=== PATIENT | female | born 1975 | race Caucasian/White ===

== ENCOUNTER 2019-09-03 10:07 | Outpatient (CLI) | payer MEDICARE, MEDICAID, SELFPAY | END 2019-09-03 10:08 | disposition home or self-care (01) | LOC: RADSHAW 09-04 08:44 | PROVIDERS: PCP Family Medicine; Referring Provider Family Medicine; Visit Provider Specialist | DX: I99.8 Other disorder of circulatory system (principal); F17.210 Nicotine dependence, cigarettes, uncomplicated | CPT/HCPCS: 99214 ==

== ENCOUNTER → 2020-03-18 12:15 | Outpatient (BNVA) | payer MEDICARE, SELFPAY | PROVIDERS: PCP Family Medicine; Visit Provider Family Medicine | DX: N92.6 Irregular menstruation, unspecified (principal); Z13.1 Encounter for screening for diabetes mellitus; N94.6 Dysmenorrhea, unspecified; Z13.6 Encounter for screening for cardiovascular disorders | CPT/HCPCS: 80053; 80061; 83001; 83002; 84403; 84443; 85025 ==

== ENCOUNTER → 2020-04-06 14:51 | Outpatient (BNVA) | payer MEDICARE, SELFPAY | PROVIDERS: PCP Family Medicine; Visit Provider Family Medicine | DX: M17.12 Unilateral primary osteoarthritis, left knee (principal); M17.11 Unilateral primary osteoarthritis, right knee | CPT/HCPCS: 73562 ==

== ENCOUNTER → 2020-04-08 14:15 | Outpatient (BNVA) | payer MEDICARE, SELFPAY | PROVIDERS: PCP Family Medicine; Visit Provider Nurse Practitioner Women's Health | DX: Z12.4 Encounter for screening for malignant neoplasm of cervix (principal); N94.5 Secondary dysmenorrhea | CPT/HCPCS: 88175 ==

== ENCOUNTER → 2020-07-03 17:33 | Outpatient (BNVA) | payer MEDICARE, SELFPAY | PROVIDERS: PCP Family Medicine; Visit Provider Nurse Practitioner | DX: N39.0 Urinary tract infection, site not specified (principal) | CPT/HCPCS: 81000 ==

== ENCOUNTER → 2020-07-30 15:48 | Outpatient (BNVA) | payer MEDICARE, SELFPAY | PROVIDERS: PCP Family Medicine; Visit Provider Emergency Medicine | DX: N39.0 Urinary tract infection, site not specified (principal); K04.7 Periapical abscess without sinus; R31.9 Hematuria, unspecified | CPT/HCPCS: 81000 ==

== ENCOUNTER → 2021-03-02 08:45 | Outpatient (BNVA) | payer MEDICARE, SELFPAY | PROVIDERS: PCP Family Medicine; Visit Provider Family Medicine | DX: R39.9 Unspecified symptoms and signs involving the genitourinary system (principal); E78.1 Pure hyperglyceridemia; R23.8 Other skin changes; Z13.1 Encounter for screening for diabetes mellitus; L25.9 Unspecified contact dermatitis, unspecified cause; N30.01 Acute cystitis with hematuria; Z86.2 Personal history of diseases of the blood and blood-forming organs and certain disorders involving the immune mechanism | CPT/HCPCS: 80053; 80061; 81000; 85025; 87086 ==

== ENCOUNTER 2021-04-11 12:51 | Outpatient (CLI) | payer MEDICARE, SELFPAY ==
--- NOTE | 2021-04-11 13:00 | MR_ITS ---
WS: [id number] MRI HEAD WITHOUT CONTRAST TECHNIQUE: Sagittal T1, T2 axial, T2 axial FLAIR, axial and coronal T1 images, axial susceptibility w eighted imaging, axial diffusion weighted images, and coronal T2 images were obtained. CLINICAL INFORMATION: G45.9 - Transient cerebral ischemic attack, unspecified COMPARISON: None. FINDINGS: Some images degraded by motion. No evidence of restricted diffusion to suggest acute ischemia. Ventricular system and basal cisterns are patent. No suspicious intracranial signal abnormalities considering motion artifact. Normal poste rior fossa. Normal vascular flow voids at the skull base. No extra-axial fluid collections. No eviden ce of mass or mass effect. Retention cyst right maxillary sinus. Mild mucosal thickening in the ethmo id air cells. Mastoid air cells are well aerated. No hemosiderin on susceptibly weighted images. Normal optic chiasm and pituitary infundibulum. Temporal lobes and hippocampal formations are normal in appearance. Low-lying cerebellar tonsils approximately 4.3 mm below the foramen magnum. Normal fou rth ventricle. No hydrocephalus. MR/MR head wo con* [id number] IMPRESSION: Some images degraded by motion artifact. 1. No evidence of restricted diffusion to suggest acute ischemia. 2. No suspicious intracranial signal abnormalities considering motion artifact . 3. No extra-axial fluid collections. No evidence of mass or mass effect. 4. Temporal lobes and hippocampal formations are normal in appearance. 5. Cerebellar tonsillar ectopia. Normal fourth ventricle. No hydrocephalus. 6. Retention cyst right maxillary sinus measuring 1.6 cm.
== END 2021-04-11 12:52 | disposition home or self-care (01) ==
PROVIDERS: PCP Family Medicine; Visit Provider Family Medicine
DX: G45.9 Transient cerebral ischemic attack, unspecified (principal); R29.898 Other symptoms and signs involving the musculoskeletal system; R47.9 Unspecified speech disturbances; Q04.8 Other specified congenital malformations of brain; M27.40 Unspecified cyst of jaw
CPT/HCPCS: 70551

== ENCOUNTER → 2021-07-05 14:22 | Outpatient (BNVA) | payer MEDICARE, SELFPAY | PROVIDERS: PCP Family Medicine; Visit Provider Family Medicine | DX: M79.642 Pain in left hand (principal) | CPT/HCPCS: 73130 ==

== ENCOUNTER → 2021-11-16 09:07 | Outpatient (BNVA) | payer MEDICARE, SELFPAY | PROVIDERS: PCP Family Medicine; Visit Provider Family Medicine | DX: N23 Unspecified renal colic (principal); N39.0 Urinary tract infection, site not specified; J30.2 Other seasonal allergic rhinitis; N93.9 Abnormal uterine and vaginal bleeding, unspecified | CPT/HCPCS: 81000 ==

== ENCOUNTER → 2021-12-28 14:59 | Outpatient (BNVA) | payer MEDICARE, SELFPAY | PROVIDERS: PCP Family Medicine; Visit Provider Family Medicine | DX: N93.9 Abnormal uterine and vaginal bleeding, unspecified (principal) | CPT/HCPCS: 85018 ==

== ENCOUNTER → 2021-12-30 17:25 | Outpatient (BNVA) | payer MEDICARE, SELFPAY | PROVIDERS: PCP Family Medicine; Visit Provider Emergency Medicine | DX: D50.0 Iron deficiency anemia secondary to blood loss (chronic) (principal); N93.9 Abnormal uterine and vaginal bleeding, unspecified | CPT/HCPCS: 85018 ==

== ENCOUNTER → 2022-01-05 13:57 | Outpatient (BNVA) | payer MEDICARE, SELFPAY | PROVIDERS: PCP Family Medicine; Visit Provider Obstetrics & Gynecology | DX: N93.9 Abnormal uterine and vaginal bleeding, unspecified (principal); D50.0 Iron deficiency anemia secondary to blood loss (chronic); E78.5 Hyperlipidemia, unspecified | CPT/HCPCS: 83036; 84443; 88305 ==

== ENCOUNTER 2022-01-23 10:01 | Outpatient (CLI) | payer MEDICARE, MEDICAID, SELFPAY ==
--- NOTE | 2022-01-23 10:00 | US_ITS ---
WS: [id number] TRANSABDOMINAL PELVIC AND TRANSVAGINAL PELVIC ULTRASOUND HISTORY: N93.9 - Abnormal uterine and vaginal bleeding, unspecified COMPARISON: None available. Uterus: 10.6 cm x 9.2 cm x 6.3 cm. Moderately enlarged anteverted uterus. A slightly bulbous appearan ce to the uterus. There are multiple areas of shadowing and variable echogenicity consistent with fib roids. The largest fibroid is towards the RIGHT lateral uterus measuring 3.8 x 2.8 x 3.6 cm. There ar e additional scattered more anterior and posterior fibroids. There are 2 well circumscribed fibroids. Additional heterogeneity in the posterior myometrium and to the LEFT suggest other fibroids. Endometrium: 0.5 cm. The endometrium remains midline despite the fibroids. Right ovary: 4.4 cm x 4.1 cm x 2.3 cm. RIGHT ovary contains several small complex cysts. Complex cyst ic or measures 2.8 x 2.4 x 1.7 cm. No increased vascularity. No solid mass. Left ovary: Not visualized. No LEFT adnexal mass. No free fluid. US/US pelvic with transvaginal IMPRESSION: 1. Moderate uterine enlargement with fibroids. Largest fibroid RIGHT lateral m yometrium measures 3.8 x 2.8 x 3.6 cm. 2. Normal endometrium. 3. Complex cyst in the RIGHT adnexa associated with the ovary. This is a small cyst and probably represents hemorrhagic follicles or corpus luteal cyst.
== END 2022-01-23 10:02 | disposition home or self-care (01) ==
PROVIDERS: PCP Family Medicine; Visit Provider Obstetrics & Gynecology
DX: N93.9 Abnormal uterine and vaginal bleeding, unspecified (principal); D25.9 Leiomyoma of uterus, unspecified
CPT/HCPCS: 76830; 76856

== ENCOUNTER → 2022-01-31 11:39 | Outpatient (BNVA) | payer OTHER, MEDICARE, SELFPAY | PROVIDERS: PCP Family Medicine; Visit Provider Family Medicine | DX: N93.9 Abnormal uterine and vaginal bleeding, unspecified (principal); D50.0 Iron deficiency anemia secondary to blood loss (chronic); N85.2 Hypertrophy of uterus; I10 Essential (primary) hypertension; Z01.818 Encounter for other preprocedural examination | CPT/HCPCS: 85018 ==

== ENCOUNTER 2022-02-28 12:40 | Observation (INO) | payer MEDICARE, SELFPAY ==
[2022-02-27 13:52] VITALS: BMI 36.8
[2022-02-28] VITALS (19 sets, daily range): BP systolic 108–166; BP diastolic 70–119; PULSE 68–99; RESP 8–20; TEMP 36.6–37; O2SAT 89–100
--- NOTE | 2022-02-28 07:43 | ANES.PREANE2 ---
Pre-Anesthetic Assessment Height/Weight: Height 1.63 m Weight 97.522 kg Preop Diagnosis: AUB Operation Date: 02/28/22 09:25 Proposed Procedures p Laparoscopic assisted vaginal hysterectomy 59156,N85.2,N81.4(Not Applicable) - Idalmis Murillo MD Familial anesthetic complications: None Was Beta Ave taken within 24 hours: N/A Was Clonidine taken within 24 hours: N/A Last intake: 02/27/22 Social Tobacco and No alcohol Exam alert, oriented x 3, clear to auscultation bilaterally and regular rate & rhythm Airway Submandibular: within normal limits Cervical ROM: within normal limits Mallampati: Class II Dentition: chipped Pulmonary None reported CV/HEM Anemia and Hypertension AUB Hepatic None reported GI None reported Metabolic Hyperlipidemia Musc/skel Lower Back Pain and Osteoarthritis/DJD Cervical radiculopathy Lumbar radiculopathy Insomnia Neuropsych Cerebrovascular Accident, Depression, Headache and Transient Ischemic Attack We discussed risk and benefits of general anesthesia including PONV, sore throat (sometimes severe), corneal abrasion, positioning and peripheral nerve injuries, life threatening allergic reaction, post operative ICU admission requiring prolonged intubation, aspiration, stroke, heart attack, , and rare incidences of recall. Patient consents to proceed with general anesthesia. Anesthetic Plan ASA status: 3 Anesthesia: Anesthesia Evaluation and General Other: We discussed risk and benefits of general anesthesia including PONV, sore throat (sometimes severe), corneal abrasion, positioning and peripheral nerve injuries, life threatening allergic reaction, post operative ICU admission requiring prolonged intubation, aspiration, stroke, heart attack, , and rare incidences of recall. Patient consents to proceed with general anesthesia. Risk of > 500 ml blood loss (7ml/kg in children): No Medications/Allergies Home Medications Medication Instructions Recorded Confirmed Last Taken Type ibuprofen 800 mg tablet (IBU) 800 mg PO Q8H PRN pain 30 days #90 09/29/21 02/28/22 02/27/22 Rx tabs verapamil 120 mg tablet,extended 120 mg PO BID 30 days #60 tabs 09/29/21 02/28/22 02/27/22 Rx release ketorolac 10 mg tablet 10 mg PO Q6H PRN Headache 01/05/22 02/28/22 Unknown History promethazine 25 mg tablet 25 mg PO Q6H PRN Pain 01/05/22 02/28/22 Unknown History cyclobenzaprine 5 mg tablet 5 mg PO BEDTIME 02/27/22 02/28/22 02/28/22 History Allergies Allergy/AdvReac Type Severity Reaction Status Date / Time amoxicillin Allergy Unknown UNKNOWN Verified 02/28/22 08:07 ceftriaxone [From Rocephin] Allergy Unknown UNKNOWN Verified 02/28/22 08:07 cephalexin Allergy Unknown UNKNOWN Verified 02/28/22 08:07 ciprofloxacin Allergy Unknown UNKNOWN Verified 02/28/22 08:07 dexamethasone [From Decadron] Allergy Unknown UNKNOWN Verified 02/28/22 08:07 methylprednisolone Allergy Unknown UNKNOWN Verified 02/28/22 08:07 [From Depo-Medrol] terfenadine [From Seldane] Allergy Unknown UNKNOWN Verified 02/28/22 08:07 [facility] Anesthesia Medical History Arthritis of right knee Cervical radiculopathy Chronic back pain Chronic migraine Depression Expressive aphasia Hyperlipemia Does not tolerate fish oils Insomnia Lumbar radiculopathy Palpitation Stroke TIA (transient ischemic attack) (~2011) Tobacco abuse Surgical History H/O arthroscopic knee surgery LEFT KNEE H/O sinus surgery H/O tubal ligation Family History Family/Other Uterine cancer, Onset Age: 25 Maternal Aunt Father Stroke Grandmother Heart disease Maternal and paternal Grandfather Heart disease Maternal and paternal Denies family history of Colon cancer Ovarian cancer Diabetes Clotting disorder Hypercholesteremia Breast cancer Bleeding disorder Hypertension Thyroid disease Social History Smoking and tobacco status: current every day smoker Female Reproductive History Spontaneous abortions: No Data Anesthesia : 02/28/22 08:25 02/28/22 08:53 Cardiac Studies: No Data to Display
[2022-02-28] MEDS: scopolamine 1.5 Patch 1 PATCH TRANSDERMA (08:30)
[2022-02-28] MEDS: sodium chloride 0.9% 1,000 ML 30 ML IV (08:30)
[2022-02-28] MEDS: phenazopyridine 100 mg Tablet 200 MG PO (08:31)
[2022-02-28] MEDS: CELEcoxib 200 mg Capsule 400 MG PO (08:31)
[2022-02-28] MEDS: acetaminophen 1,000 MG/100 ML PIGGYBACK 400 MG IV (08:31)
[2022-02-28] MEDS: gabapentin 300 mg Capsule PO (08:31)
[2022-02-28 08:33] LABS: Basophils # 0.1 10^3/uL (0.0-0.1); Basophils % 1.5 %; Eosinophils # 0.2 10^3/uL (0.0-0.8); Hematocrit 36.2 % (37.0-47.0); Hemoglobin 10.5 g/dL (11.5-15.3); Lymphocytes # 2.6 10^3/uL (0.8-4.8); Lymphocytes % 27.4 %; Mean Corpuscular Hemoglobin 21.1 pg (28.0-34.0); Mean Corpuscular Volume 72.8 fl (81-99); Mean Platelet Volume 10.5 fL (7.4-10.4); Monocytes # 0.9 10^3/uL (0.2-0.9); Monocytes % 9.5 %; Neutrophils # 5.65 10^3/uL (1.8-7.7); Neutrophils % 59.4 %; Nucleated Red Blood Cells % 0 %; Platelet Count 318 10^3/cmm (130-400); Red Blood Count 4.97 10^6/uL (4.1-5.3); Red Cell Distribution Width 20.1 % (12.1-15.1); White Blood Count 9.5 10^3/uL (4.0-10.0)
[2022-02-28 08:37] LABS: OR HCG Qualitative Urine Negative (Negative)
[2022-02-28] MEDS: diphenhydrAMINE 50 mg/mL SDV 1mL IVP (09:11)
[2022-02-28] MEDS: vancomycin 1,500 MG/300 ML PIGGYBACK 200 MG IV (09:15)
[2022-02-28 09:25] LABS: Anion Gap 11.7 (5-19); Blood Urea Nitrogen 11 mg/dL (6-20); Calcium 8.9 mg/dL (8.5-10.5); Carbon Dioxide 23 mmol/L (22-29); Chloride 101 mmol/L (98-107); Glomerular Filtration Rate 106.7 mL/min (90-130); Glucose 87 mg/dL (65-115); Osmolality Calculated 273 mOsm/kg (285-295); Potassium 3.7 mmol/L (3.5-5.1); Sodium 132 mmol/L (136-145)
--- NOTE | 2022-02-28 09:28 | W.PM.OPSUD ---
Surgery/Procedure H&P Update DATE OF PROCEDURE: February 28, 2022 DATE H&P PERFORMED: 02/23/22 H&P UPDATE INFORMATION: I have reviewed H&P completed within last 30 days, I have examined patient prior to procedure and No changes to prior documentation PREOP DIAGNOSIS: enlarged uterus, anemia, AUB PLANNED PROCEDURE: Operation Date: 02/28/22 09:25 Proposed Procedures p Laparoscopic assisted vaginal hysterectomy 69974,N85.2,N81.4(Not Applicable) - Idalmis Murillo MD Related Problem List Diagnoses (1) Enlarged uterus: (2) Anemia due to blood loss: (3) Abnormal uterine bleeding (AUB):
[2022-02-28] MEDS: vasopressin 20 unit/mL INJ INJECTION (10:21)
--- NOTE | 2022-02-28 11:06 | SUR.OPER ---
Called and notified of surgical progress.
--- NOTE | 2022-02-28 12:35 | P.OP_ITS ---
Operative Report Date of procedure: February 28, 2022 Pre-op diagnosis: Preop Diagnosis enlarged uterus, anemia, AUB Post-op diagnosis: same Post-op findings: 12 week sized uterus, previous tubal ligation, normal appearing ovaries. Bowel adhesion on left pelvic sidewall. Procedure done: LAVH with bilateral salpingectomy Specimens removed/disposition: uterus, bilateral fallopian tubes to pathology Surgeon: Idalmis Murillo Anesthesia: General Estimated blood loss (mL): 250 IV fluids (mL): 1,000 Urine output (mL): 400 Complications: none Findings: 12 week sized fibroid uterus, normal appearing tubes and ovaries. left bowel adhesion to pelvic sidewall Condition: stable Disposition: PACU Procedure: The patient was taken to the operating room where general anesthesia was administered and found to be adequate. She was prepped and draped in the normal sterile fashion in the dorsal lithotomy position in [facility]. A Moran catheter was placed. A weighted speculum was placed into the vagina and the anterior lip of the cervix was grasped with a single tooth tenaculum. The Zumi uterine manipulator was placed. The weighted speculum was removed. The gloves were changed and attention was turned to the abdomen. A 5 mm Supraumbilical incision was made. Using a 5 mm port with the camera, the port was placed into the abdomen. The abdomen was insufflated. Two low, lateral 5 mm ports were placed on the left and right under direct visualization from the camera. The right tube was grasped and elevated. Using the laparoscopic cautery, the mesosalpinx was divided between the ovary and tube. The tube was removed. This was performed the same way on the left. The uteroovarian ligaments as well as the round ligaments were ligated. Attention was then turned to the vaginal portion of the procedure. The weighted speculum was placed into the vagina. The zumi manipulator was removed. The single tooth tenaculum was removed and replaced with the patricia's tenaculum. 10 mL of dilute Pitressin was injected at the vesicovaginal junction. A circumferential incision was made at the vesicovaginal junction and the vaginal mucosa reflected cephalad. The posterior peritoneum was entered sharply with the Metzenbaum scissors and the long weighted speculum replaced. Using the Caro clamps the uterosacral ligaments were clamped cut and suture- ligated. The anterior peritoneum was entered sharply with the metzenbaum scissors. Then sequentially the uterine arteries and cardinal ligaments were clamped cut and suture-ligated. The uterus was so large that the cervix was bivalved and the uterus removed completely. There was good hemostasis with only mild bleeding from the cuff. The peritoneum was closed with a pursestring using 2-0 Vicryl. The vaginal cuff was closed with 0 Vicryl in a running locked pattern incorporating the uterosacral ligaments into the lateral aspects of the vaginal cuff. The Moran catheter was removed and the cystoscope advanced into the bladder. The patient was given pyridium and bilateral spill was noted. There were no injuries or deficits noted in the bladder. The cystoscope was removed and the Moran was replaced. Vaginal packing was placed for good hemostasis. The gloves and gowns were changed and attention was turned to the abdomen. The ports were closed with 4-0 Vicryl with skin glue. The patient tolerated the procedure well. Sponge lap and needle counts were correct x3. She was taken to the recovery room in stable condition.
--- NOTE | 2022-02-28 12:59 | SUR.PHASEI ---
1244 PT TO PACU 5 PT SLEEPING WITH ORAL AIRWAY IN PLACE, DOES NOT AWAKE TO VOICE, GOOD RESP EFFORT NOTED MONITOR SR WITH NO ECTOPY, ABDOMEN SOFT WITH 3 SITES WITH SKIN GLUE, GIORGI PAD AND VAGINAL PACKING , MYERS TO DD WITH ORANGE URINE NOTED IN TUBING AND BAG, STATLOCK TO RT INNER THIGH, BILAT SCDS ON PT IV TO LT FOREARM #20 WITH NS 800ML UP AT KVO RATE PER GRAVITY, PATENT, ID BANDS TO RT WRIST , PT ID'D WITH 2 IDENTIFIERS [id number] PT ORAL AIRWAY OUT PT AWAKES TO VOICE, SHAKES HEAD NO TO PAIN AND NAUSEA QUESTIONS, PT UP IN BED WITH HOB AT 40 DEGREES. BP REMAINS ELEVATED.
[2022-02-28] MEDS: labetalol 5 mg/mL SDV 20mL IVP (13:13)
--- NOTE | 2022-02-28 13:22 | SUR.PHASEI ---
1310 PT BP REMAINS ELEVATED, DR GIBSON NOTIFIED ORDERS RECIEVEDA ND LABETOLOL 5 MG TO BE GIVEN IVP 1320 BP MUCH BETTER, PT AWAKES TO VOICE , BUT QUICKLY BACK TO SNORING RESPIRATIONS, PT ON RA SATS DOWN TO 90% PLACED ON 3LNC SAT 95-97$ WITH NO DISTRESS NOTED. ABDOMEN REMAINS SOFT. GIORGI PAD DRY.
--- NOTE | 2022-02-28 14:10 | SUR.PHASEI ---
PT UP DATED AND HE WENT TO OB TO WAIT FOR PT, PT TO OB PER CART, PT TO OB 12 PER CART, PT MOVED SELF TO BED , HANDOFF TO PIOTR RN AT BEDSIDE, ABDOMEN AND GIORGI PAD UNCHANGED, VSS.
--- NOTE | 2022-02-28 15:26 | W.PM.OPSUD ---
Surgery/Procedure H&P Update DATE OF PROCEDURE: February 28, 2022 DATE H&P PERFORMED: 02/23/22 H&P UPDATE INFORMATION: I have reviewed H&P completed within last 30 days, I have examined patient prior to procedure and No changes to prior documentation PREOP DIAGNOSIS: enlarged uterus, anemia, AUB PLANNED PROCEDURE: Operation Date: 02/28/22 09:25 Proposed Procedures p Laparoscopic assisted vaginal hysterectomy 13880,N85.2,N81.4(Not Applicable) - Idalmis Murillo MD
--- NOTE | 2022-02-28 15:39 | ANE.PACU2 ---
Inpatient post-anesthesia follow up: Airway intact: Yes Vital signs: Temperature 98.6 F Pulse Rate 76 Respiratory Rate 18 Blood Pressure 121/81 Pulse Oximetry 95 Oxygen Delivery Me thod Room Air Oxygen Flow Rate 2 Fraction of Inspir ed Oxygen Hydration adequate: Yes Nausea and vomiting: No Pain level: 5 Mental status: Baseline
--- NOTE | 2022-02-28 16:15 | PC.NURSE ---
Pt SpO2 drops to 88-90% while sleeping. Pt snores loudly and mouth breathes when sleeping. Pt repeatedly removes nasal cannula and will not leave it on. Education provided, pt refuses to wear it.
[2022-02-28] MEDS: docusate sodium 100 mg Capsule PO (19:53)
[2022-02-28] MEDS: ketorolac 30 mg/mL INJ IVP (19:53)
--- NOTE | 2022-03-01 00:59 | PC.NURSE ---
pt refused another IV and toradol.
[2022-03-01 01:00] VITALS: BP 107/71; PULSE 108; RESP 18
[2022-03-01 01:32] VITALS: BP 126/73; PULSE 120; RESP 19; TEMP 36.8; O2SAT 95
[2022-03-01 05:30] LABS: Hematocrit 28.6 % (37.0-47.0); Hemoglobin 8.2 g/dL (11.5-15.3); Mean Corpuscular HGB Conc 28.7 g/dL (30.0-36.0); Mean Corpuscular Hemoglobin 21.2 pg (28.0-34.0); Mean Corpuscular Volume 74.1 fl (81-99); Mean Platelet Volume 10.1 fL (7.4-10.4); Platelet Count 211 10^3/cmm (130-400); Red Blood Count 3.86 10^6/uL (4.1-5.3); Red Cell Distribution Width 19.6 % (12.1-15.1); White Blood Count 10.5 10^3/uL (4.0-10.0)
[2022-03-01 05:48] VITALS: BP 137/74; PULSE 102; RESP 16; TEMP 36.8; O2SAT 95
--- NOTE | 2022-03-01 08:57 | P.DS_ITS ---
Discharge Providers Date of Admission: 02/28/22 12:40 Date of Discharge: March 01, 2022 Attending Provider at Admission: Idalmis Murillo MD Attending Provider at Discharge: Idalmis Murillo MD Primary Care Provider: Jillian Taylor MD Diagnoses at Discharge Discharge Diagnosis (1) Enlarged uterus: Status: Acute (2) Anemia due to blood loss: Status: Acute (3) Abnormal uterine bleeding (AUB): Status: Acute Hospital Course Hospital Course The patient was admitted for surgery. She did well postoperatively. She was ready for discharge on day #1 Physical Exam Narrative: no concerns this morning. Const: COMMON NORMALS: no acute distress, patient oriented x3, no limitations, healthy appearing, alert and well nourished GENERAL APPEARANCE: cooperative, comfortable, well kempt and well developed ORIENTATION/CONSCIOUSNESS: Yes dominguez ke, Yes oriented to person, Yes oriented to place and Yes oriented to time Resp: COMMON NORMALS: normal respiratory effort EFFORT & INSPECTION: Yes able to speak in complete sentences GI: COMMON NORMALS: Soft to palpation and non-tender PALPATION: Yes Soft to palpation Extremity: COMMON NORMALS: normal to inspection Neuro: COMMON NORMALS: patient oriented x3 SENSORIUM/ORIENTATION: Yes alert, Yes oriented to person, Yes oriented to place and Yes oriented to time Psych: COMMON NORMALS: mental status grossly normal, Normal thought process present, cooperative, normal affect and speech normal APPEARANCE: Yes well kempt SPEECH: Yes normal speech THOUGHT PROCESS: Normal thought process present Urinary Catheter Management: Moran: Cath Placed During This Visit: yes, but has since been removed by the nurse Reason for Continuing Indwelling Catheter: Decision to DC Catheter Urinary Catheter Date of Insertion: 02/28/22 Urinary Catheter Time of Insertion: 10:16 Date Urinary Catheter Removed: 03/01/22 Time Urinary Catheter Discontinued: 05:20 Discharge Data Studies Completed and Pending Pending at discharge Category Date Time Status ES surgery / GI images Routine Exams 02/28/22 08:41 Ordered Urine Culture Routine Lab 02/28/22 10:16 Received Pathology: Surgical [PTH] Routine Pth 02/28/22 12:15 Received Laboratory Results WBC 10.5 10^3/uL (4.0-10.0) H 03/01/22 05:15 RBC 3.86 10^6/uL (4.1-5.3) L 03/01/22 05:15 Hgb 8.2 g/dL (11.5-15.3) L 03/01/22 05:15 Hct 28.6 % (37.0-47.0) L 03/01/22 05:15 MCV 74.1 fl (81-99) L 03/01/22 05:15 MCH 21.2 pg (28.0-34.0) L 03/01/22 05:15 MCHC 28.7 g/dL (30.0-36.0) L 03/01/22 05:15 RDW 19.6 % (12.1-15.1) H 03/01/22 05:15 Plt Count 211 10^3/cmm (130-400) D 03/01/22 05:15 MPV 10.1 fL (7.4-10.4) 03/01/22 05:15 Neut % (Auto) 59.4 % 02/28/22 08:25 Lymph % (Auto) 27.4 % 02/28/22 08:25 [place] % (Auto) 9.5 % 02/28/22 08:25 Eos % (Auto) 2.0 % 02/28/22 08:25 Baso % (Auto) 1.5 % 02/28/22 08:25 Neut # (Auto) 5.65 10^3/uL (1.8-7.7) 02/28/22 08:25 Lymph # (Auto) 2.6 10^3/uL (0.8-4.8) 02/28/22 08:25 [place] # (Auto) 0.9 10^3/uL (0.2-0.9) 02/28/22 08:25 Eos # (Auto) 0.2 10^3/uL (0.0-0.8) 02/28/22 08:25 Baso # (Auto) 0.1 10^3/uL (0.0-0.1) 02/28/22 08:25 Nucleated RBC % (auto) 0 % 02/28/22 08:25 Nucleated RBCs # 0.0 /100WBC 02/28/22 08:25 Sodium 132 mmol/L (136-145) L 02/28/22 08:53 Potassium 3.7 mmol/L (3.5-5.1) 02/28/22 08:53 Chloride 101 mmol/L (98-107) 02/28/22 08:53 Carbon Dioxide 23 mmol/L (22-29) 02/28/22 08:53 Anion Gap 11.7 (5-19) 02/28/22 08:53 BUN 11 mg/dL (6-20) 02/28/22 08:53 Creatinine 0.6 mg/dL (0.5-0.9) 02/28/22 08:53 GFR Calculation 106.7 mL/min (90-130) 02/28/22 08:53 Glucose 87 mg/dL (65-115) 02/28/22 08:53 Calculated Osmolality 273 mOsm/kg (285-295) L 02/28/22 08:53 Calcium 8.9 mg/dL (8.5-10.5) 02/28/22 08:53 Urine HCG, Qual Negative (Negative) 02/28/22 08:36 Blood Type O Positive 02/28/22 08:25 Rho(D) Type Positive 02/28/22 08:25 Antibody Screen Negative 02/28/22 08:25 Vitals Last Vital Signs Temp 98.2 F 03/01/22 05:48 Pulse 102 H 03/01/22 05:48 Resp 16 03/01/22 05:48 BP 137/74 03/01/22 05:48 Pulse Ox 95 03/01/22 05:48 O2 Del Method 03/01/22 01:32 O2 Flow Rate 2 02/28/22 13:35 Discharge Plan Discharge Patient Disposition: Home Condition: Stable Prescriptions: New ibuprofen 800 mg Tablet 800 mg PO Q8H Qty: 30 0RF hydrocodone-acetaminophen 5-325 mg Tablet 1 tab PO Q4H PRN (Reason: Moderate To Severe Pain) Qty: 30 0RF docusate sodium 100 mg Capsule 100 mg PO BID Qty: 60 0RF Continued verapamil 120 mg tablet extended release 120 mg PO BID 30 Days Qty: 60 0RF ibuprofen [IBU] 800 mg tablet 800 mg PO Q8H MDD 3 tabs PRN (Reason: pain) 30 Days Qty: 90 5RF Rx Instructions: WITH FOOD promethazine 25 mg tablet 25 mg PO Q6H PRN (Reason: Pain) ketorolac 10 mg tablet 10 mg PO Q6H PRN (Reason: Headache) cyclobenzaprine 5 mg tablet 5 mg PO BEDTIME Discharge Orders: Discharge Order (Routine); Ordered 03/01/22 Ordered By: Idalmis Murillo Referrals: Idalmis Murillo MD [Physician] - 03/08/22 9:30 am (Your 6 week post operative follow up is April 14, 2022 at 3:15 p.m.) Patient Instructions: Hydrocodone/Acetaminophen (By mouth) (Vicodin, [place], Lortab), Ibuprofen (By mouth), Laxative, Stool Softeners (By mouth) (Doculax, Colace, Colace Clear, DSS), Laparoscopic Hysterectomy (DC), OB Abdominal Surgery - [facility], OB Anesthesia Instructions, Opioid Safety, Post Operative Pain Discharge Attestations Time Spent in Discharge Care*: less than 30 min Quality Metrics Clinical Quality Measures [ No reported AMI, CVA or VTE this stay] Coding Level of Care Code Acute Chg FW DC note Diagnoses Enlarged uterus N85.2 Anemia due to blood loss D50.0 Abnormal uterine bleeding (AUB) N93.9
[2022-03-01 09:30] VITALS: BP 122/76; PULSE 94; RESP 18; TEMP 36.8; O2SAT 98
== END 2022-03-01 10:00 | disposition home or self-care (01) ==
LOC: OBGYN 12:40
PROVIDERS: Anesthesiology; Admitting Provider Obstetrics & Gynecology; PCP Family Medicine; Visit Provider Obstetrics & Gynecology
PROC: 0UT9FZZ Resection of Uterus, Via Natural or Artificial Opening With Percutaneous Endoscopic Assistance (ICD-10-PCS; CPT 58554; principal; 2022-02-28 09:25)
PROC: 0TJB8ZZ Inspection of Bladder, Via Natural or Artificial Opening Endoscopic (ICD-10-PCS; CPT 52000; 2022-02-28 09:25)
DX: D25.2 Subserosal leiomyoma of uterus (principal); D50.0 Iron deficiency anemia secondary to blood loss (chronic)
CPT/HCPCS: 58554; 36415; 80048; 81025; 84703; 85025; 85027; 86850; 86900; 87086; 88307; G0378; J1170; J1200; J1885; J2250; J2405; J2704; J3010; J3370; J3490; J7030

== ENCOUNTER → 2022-09-28 11:37 | Outpatient (BNVA) | payer MEDICARE, MEDICAID, SELFPAY | PROVIDERS: PCP Family Medicine; Visit Provider Family Medicine | DX: R30.0 Dysuria (principal) | CPT/HCPCS: 81000; 87077; 87086; 87184 ==

== ENCOUNTER 2023-03-06 12:53 | Outpatient (CLI) | payer MEDICARE, MEDICAID, SELFPAY ==
--- NOTE | 2023-03-06 13:17 | MM_ITS ---
WS: [id number] DIAGNOSTIC BILATERAL DIGITAL BREAST TOMOSYNTHESIS MAMMOGRAPHY WITH CAD RIGHT breast ultrasound, limited. HISTORY: RT BR LUMP COMPARISON: None available. TECHNIQUE: Bilateral craniocaudad, mediolateral oblique, and mediolateral views are submitted with to mosynthesis and SM. Spot compression views RIGHT CC and MLO. Computer aided detection utilized. Breast composition: There are scattered areas of fibroglandular density. Palpable marker corresponds to a high density mass measuring 2.3 x 1.9 cm in the posterior RIGHT breast against the chest wall, n ear 12:00. There are additional mildly prominent lymph nodes in the RIGHT axilla. Fatty vik are stil l present but the cortex appears prominent. LEFT breast is negative. RIGHT breast ultrasound, limited. Hypoechoic lobulated mass with minimal peripheral vascularity at 12:00, 9 cm from the nipple. This ma ss corresponds to the palpable mass as indicated by the patient and also seen on the recent mammogram . Mass measures 2.0 x 1.7 x 1.6 cm. Ultrasound is also obtained of the RIGHT axilla. The prominent lymph nodes identified on mammography are not visualized by ultrasound. No adenopathy is identified. IMPRESSION: MM/[place] [id number] BI-RADS: 5-Highly Suggestive of Malignancy FOLLOW UP: Biopsy Recommended Ultrasound-guided biopsy recommended RIGHT breast mass 12:00. Notified Michelle Bowen NP at 03/06/2023 3:14 PM.
== END 2023-03-06 12:54 | disposition home or self-care (01) ==
PROVIDERS: PCP Family Medicine; Visit Provider Nurse Practitioner Family
DX: N63.15 Unspecified lump in the right breast, overlapping quadrants (principal)
CPT/HCPCS: 76642; 77062; G0279

== ENCOUNTER 2023-03-14 13:32 | Outpatient (CLI) | payer MEDICARE, MEDICAID, SELFPAY ==
--- NOTE | 2023-03-14 13:41 | US_ITS ---
WS: [id number] ULTRASOUND-GUIDED RIGHT BREAST BIOPSY CLINICAL INFORMATION: ABNORMAL MAMMO COMPARISON: 03/06/2023 FINDINGS: The procedure including risks, benefits, and complications were discussed with the patient who agreed to proceed. Using sterile technique patient was prepped and draped in the usual sterile fashion. Aft er 1% lidocaine utilizing real-time ultrasound guidance 5 14-gauge cores were obtained of the RIGHT b reast lesion at the 12 o'clock position 9 cm from the nipple. No immediate complications. Biopsy clip was not placed per patient's request. PATHOLOGY DEMONSTRATES Right breast, 12:00 position, 9 cm from nipple, needle core biopsy: 1. Infiltrating ductal adenocarcinoma, moderately differentiated (Grade 2 out of 3). 2. Nuclear Grade 2 out of 3. 3. Approximately 70% of tissue volume submitted is involved by infiltrating neoplasm. 4. There are foci suspicious for lymphovascular invasion. IMPRESSION: 1. Uncomplicated ultrasound-guided RIGHT breast biopsy. 2. The pathology demonstrates infiltrating ductal adenocarcinoma grade 2 of 3 3. Breast prognostic profile is pending. 4. Recommend breast surgery consultation. US/[place] [id number] BI-RADS: 6-Known Biopsy-Proven Malignancy FOLLOW UP: Surgical Biopsy Recommended
[2023-04-03 09:14] LABS: Breast Profile ER,PR,HER2,Ki-6 See Report
== END 2023-03-14 13:33 | disposition home or self-care (01) ==
PROVIDERS: PCP Family Medicine; Visit Provider Nurse Practitioner Family
DX: C50.811 Malignant neoplasm of overlapping sites of right female breast (principal); R92.8 Other abnormal and inconclusive findings on diagnostic imaging of breast
CPT/HCPCS: 19083; 88305; 88361; 88374

== ENCOUNTER → 2023-03-28 10:40 | Outpatient (BNVA) | payer MEDICARE, MEDICAID, SELFPAY | PROVIDERS: PCP Family Medicine; Visit Provider Family Medicine | DX: I10 Essential (primary) hypertension (principal); E78.5 Hyperlipidemia, unspecified; M54.9 Dorsalgia, unspecified; G89.29 Other chronic pain; M54.42 Lumbago with sciatica, left side; M54.41 Lumbago with sciatica, right side; M17.11 Unilateral primary osteoarthritis, right knee; R30.0 Dysuria | CPT/HCPCS: 73562; 80053; 80061; 81000; 85025; 87086 ==

== ENCOUNTER 2023-03-29 08:25 | Oncology outpatient (recurring) (ONCR) | payer MEDICARE, MEDICAID, SELFPAY | END 2023-03-31 23:59 | disposition home or self-care (01) | LOC: ONCMED 08:26 | PROVIDERS: PCP Family Medicine; Visit Provider Internal Medicine Medical Oncology | DX: C50.911 Malignant neoplasm of unspecified site of right female breast (principal); Z17.0 Estrogen receptor positive status [ER+]; Z79.899 Other long term (current) drug therapy; F17.210 Nicotine dependence, cigarettes, uncomplicated | CPT/HCPCS: 99205 ==

== ENCOUNTER 2023-04-17 16:15 | Outpatient (CLI) | payer MEDICARE, MEDICAID, SELFPAY ==
--- NOTE | 2023-04-17 | PETR_ITS ---
PROCEDURE INFORMATION: Exam: PET/CT Whole Body Exam date and time: 04/17/2023 12:59 PM Age: 47 years old Clinical indication: Condition or disease; Primary cancer: Breast cancer; Initial oncological staging assessment LABS AND CLINICAL REPORTS: Glucose: 113 mg/dl Treatment strategy for malignancy (PET staging): Initial Staging (PI) TECHNIQUE: Imaging protocol: Following at least four-hour fasting and following the injection of radiopharmaceutical, low dose CT images were obtained. Then, PET images were obtained. Attenuation corrected images were constructed using the CT scan. Fused images of PET and CT were reviewed. The standardized uptake values (SUV) reported below are maximum values within a region of interest, expressed in gm/ml. Exam includes the whole body. Radiopharmaceutical: 11.13 mCi F-18 FDG (Fluorodeoxyglucose), IV. Time of imaging post radiopharmaceutical administration: 1 hour Injection site: site COMPARISON: [place] [id number] 03/14/2023 2:32 PM FINDINGS: Brain: Visualized brain has normal physiologic uptake. Paranasal sinuses: The right maxillary sinus has a mucous retention cyst or polyp. Dental: There is uptake in the left mandible with adjacent periodontal disease SUV maximum of 4.2, likely dental in origin. Pharynx: No abnormal uptake. Larynx: No abnormal uptake. Lungs, pleura and trachea: Calcified granuloma in the lungs. No suspicious mass. Heart: Normal physiologic uptake. Mediastinal space: No abnormal uptake. Liver: No abnormal uptake. Gallbladder and bile ducts: No abnormal uptake. Pancreas: No abnormal uptake. Spleen: No abnormal uptake. Adrenal glands: No abnormal uptake. Kidneys and ureters: Normal physiologic uptake. Stomach and bowel: No abnormal uptake. Urinary bladder: Incompletely distended bladder with mild apparent wall thickening. Reproductive: Left adnexal cyst measures 3.8 cm without uptake most likely physiologic. Hysterectomy. Vasculature: No abnormal uptake. Lymph nodes: Calcified mediastinal and hilar nodes are present consistent with old granulomatous disease. Bones/joints: No abnormal uptake in the visualized axial and appendicular skeleton. Soft tissues: There is a mass in the medial right breast present measuring 1.8 x 1.6 cm similar to the comparison ultrasound. On PET there is uptake present within the mass with SUV maximum of 10.0. PET/PET WB melanoma SUBSEQ [id number] IMPRESSION: 1. Medial right breast mass measuring 1.8 cm with uptake consistent with patient's known carcinoma. No distant metastatic disease is identified. 2. Uptake in the left mandible with adjacent dental disease is likely reactive.
== END 2023-04-17 16:16 | disposition home or self-care (01) ==
LOC: RAD 16:16
PROVIDERS: PCP Family Medicine; Visit Provider Family Medicine
DX: C50.811 Malignant neoplasm of overlapping sites of right female breast (principal)
CPT/HCPCS: 78816; A9552

== ENCOUNTER 2023-05-21 13:53 | Outpatient (CLI) | payer MEDICARE, MEDICAID, SELFPAY ==
--- NOTE | 2023-05-21 14:15 | USCV_ITS ---
Gem Valentine Age: 47 Gender: F : 1975 Exam Date: 05/21/2023 14:11 Ordering Phys: Kye Novak MD Technologist: CHASTITY [place] [facility] [place]: Prechemo eval BP: 134 / 81 HR: 80 Rhythm: Sinus Technical Quality: Adequate MEASUREMENTS (Male / Female) Normal Values 2D ECHO LVOT Diameter 2.0 cm LV Ejection Fraction MOD 2C 64.4 % LV Ejection Fraction 2C AL 65.3 % LA Diameter 2.9 cm LA Width 2.8 cm LA Height 4.0 cm RA Width 2.6 cm RA Height 4.2 cm Aorta at Sinotubular Diameter 2.1 cm IVC Diameter 1.2 cm M-MODE Aortic Annulus Diameter 3.0 cm LA Ao Ratio MM 1.0 MV E Point Septal Separation 0.4 cm DOPPLER AV Peak Velocity 130.0 cm/s LVOT Peak Velocity 103.0 cm/s AV Area Cont Eq vti 2.6 cm squared AV Area Cont Eq pk 2.5 cm squared MV Peak Velocity 95.0 cm/s MV Area PHT 3.3 cm squared Mitral E to A Ratio 0.9 MV E' Velocity 46.5 cm/s Mitral E to MV E' Ratio 7.1 Mitral E to LV E' Lateral Ratio 7.4 Mitral E to LV E' Septal Ratio 6.8 TR Peak Velocity 200.5 cm/s TR Peak Gradient 16.1 mmHg TR Mean Velocity 175.4 cm/s TR Mean Gradient 12.3 mmHg TR Velocity Time Integral 65.0 cm TV Peak E Velocity 34.0 cm/s Right Atrial Pressure 3.0 mmHg Pulmonary Artery Systolic Pressu 19.1 mmHg PV Peak Velocity 90.0 cm/s RV Acceleration Time 0.1 s RV Ejection Time 0.2 s RV AcT/ET 0.2 FINDINGS Left Ventricle Normal left ventricular size, systolic function and wall thickness, with no regional wall motion abnormalities. Left ventricular ejection fraction is estimated at 65 %. Right Ventricle Normal right ventricular size and systolic function. Normal right ventricular systolic pressure. Right Atrium Normal right atrial size. Left Atrium Normal left atrial size. Mitral Valve Structurally normal mitral valve. No mitral valve regurgitation. Aortic Valve Structurally normal trileaflet aortic valve. No aortic valve stenosis. Tricuspid Valve Structurally normal tricuspid valve. Trace tricuspid valve regurgitation. Pulmonic Valve Structurally normal pulmonic valve. Pericardium No pericardial effusion. Aorta Normal size aortic root and proximal ascending aorta. IVC Normal inferior vena cava. Normal IVC dimension with >50% respiratory change of the inferior vena cava. CONCLUSIONS Normal left ventricular size and function with an estimated ejection fraction of 65%. No significant chamber abnormalities. No significant valve abnormalities. Normal Echo. Ezequiel Barrientos MD (Electronically Signed) Final Date: 21 May 2023 15:29 S
== END 2023-05-21 13:54 | disposition home or self-care (01) ==
LOC: RAD 13:53
PROVIDERS: PCP Family Medicine; Visit Provider Internal Medicine Medical Oncology
DX: Z01.818 Encounter for other preprocedural examination (principal); C50.911 Malignant neoplasm of unspecified site of right female breast; Z92.21 Personal history of antineoplastic chemotherapy
CPT/HCPCS: 93306

== ENCOUNTER 2023-05-23 07:45 | Oncology outpatient (recurring) (ONCR) | payer MEDICARE, MEDICAID, SELFPAY ==
[2023-05-23 07:45] VITALS: BP 133/86; PULSE 97; RESP 16; TEMP 35.9; O2SAT 98
[2023-05-23 08:05] LABS: Basophils % 0.4 %; Hematocrit 43.9 % (36-47); Lymphocytes # 1.1 10^3/uL (0.8-4.8); Lymphocytes % 16.8 %; Mean Corpuscular HGB Conc 32.6 g/dL (30-55); Mean Corpuscular Hemoglobin 26.8 pg (27-33); Mean Corpuscular Volume 82.4 fl (85-98); Mean Platelet Volume 11.1 fL (7.4-10.4); Monocytes # 0.1 10^3/uL (0.2-0.9); Monocytes % 0.7 %; Neutrophils # 5.49 10^3/uL (1.8-7.7); Neutrophils % 81.5 %; Nucleated Red Blood Cells % 0 %; Platelet Count 247 10^3/cmm (157-399); Red Blood Count 5.33 10^6/uL (3.85-5.65); Red Cell Distribution Width 16.8 % (12.1-15.1); White Blood Count 6.74 10^3/uL (3.29-11.43)
[2023-05-23 08:18] LABS: Alanine Aminotransferase 6 U/L (0-33); Albumin Level 4.5 g/dL (3.5-5.2); Alkaline Phosphatase 82 U/L (35-105); Anion Gap 17.2 (5-19); Aspartate Amino Transferase 13 U/L (0-32); Blood Urea Nitrogen 10 mg/dL (6-20); Calcium 10.3 mg/dL (8.5-10.5); Carbon Dioxide 22 mmol/L (22-29); Chloride 100 mmol/L (98-107); Creatinine Clr Calc Pharmacy 106.4508; Globulin 3.5 g/dL (1.3-4.6); Glomerular Filtration Rate 88.9 mL/min (90-130); Glucose 215 mg/dL (65-115); Osmolality Calculated 286 mOsm/kg (285-295); Potassium 4.2 mmol/L (3.5-5.1); Sodium 135 mmol/L (136-145); Total Bilirubin 0.2 mg/dL (0.15-1.2)
--- NOTE | 2023-05-23 10:39 | PC.PHAR ---
carboplatin dosing: reviewed patient's carboplatin dose with Brenda. Patient has BMI >30 and Cr or 0.7. We reviewed the recommendations in uptodate and double checked the dose with a secondary calculator. patient will receive the max dose of 900mg today. regimen related toxicities will be managed in the same manner as for patient with bmi <30.
[2023-05-23] MEDS: sodium chloride 0.9% 250 ML 75 ML IV (10:53)
[2023-05-23] MEDS: acetaminophen 325 mg Tablet 650 MG PO (10:57)
[2023-05-23] MEDS: OLANZapine 5 mg TABLET PO (10:57)
[2023-05-23] MEDS: diphenhydrAMINE 50 mg/mL SDV 1mL 25 MG IVP (10:58)
[2023-05-23] MEDS: famotidine 20 mg/2 mL INJ IVP (11:01)
[2023-05-23] MEDS: palonosetron 0.25 mg/5 mL SDV IVP (11:05)
[2023-05-23] MEDS: fosaprepitant 150 MG in sodium chloride 0.9% 150 ML 300 MG IV (11:07)
[2023-05-23] MEDS: pertuzumab 840 MG in sodium chloride 0.9% 250 ML 278 MG IV (12:06)
[2023-05-23] MEDS: [UNRECOGNIZED DRUG - REMARK] 264.7 MG IV (14:42)
[2023-05-23] MEDS: pegfilgrastim 6 mg/0.6 mL Kit (onpro) SUBCUT (16:43)
[2023-05-23 17:11] VITALS: BP 107/70; PULSE 71; TEMP 36.3; O2SAT 99
== END 2023-05-23 23:59 | disposition home or self-care (01) ==
PROVIDERS: PCP Family Medicine; Visit Provider Internal Medicine Medical Oncology
DX: C50.811 Malignant neoplasm of overlapping sites of right female breast (principal); Z17.0 Estrogen receptor positive status [ER+]; F17.210 Nicotine dependence, cigarettes, uncomplicated; Z79.899 Other long term (current) drug therapy; Z51.11 Encounter for antineoplastic chemotherapy
CPT/HCPCS: 80053; 85025; 96367; 96375; 96377; 96413; 96417; 99215; J1100; J1200; J1453; J1642; J2469; J2506; J3490; J7040; J7050; J9045; J9171; J9306; Q5112

== ENCOUNTER 2023-05-23 23:03 | Emergency (ER) | payer MEDICARE, MEDICAID, SELFPAY ==
[2023-05-23 23:08] VITALS: BP 169/90; PULSE 87; RESP 16; TEMP 36.5; O2SAT 98; BMI 34.4
--- NOTE | 2023-05-23 23:20 | ED_ITS ---
HPI - Fever General: Chief Complaint: Fever Stated Complaint: Fever From Chemo Time Seen by Provider: 05/23/23 23:18 History of Present Illness: 47-year-old female comes in today with fever noted at home. Patient's temperature was 100.7 on a tympanic and a temporal thermometer. Patient also complaints of nausea. Patient took her first dose of chemotherapy for her breast cancer today. Patient appears nontoxic. Patient appears in no pain. Patient has recently been on medications for a sinus infection. Patient reports that her son and her now also on this medication for sinusitis. Associated symptoms: Reports nausea; Deny chest pain, diarrhea, headache(s) or vomiting Review of Systems General: Reports: 10 or more systems reviewed and unremarkable except in HPI and below Const: Reports: fever(s) Card: Denies: chest pain Resp: Denies: dyspnea GI: Reports: nausea; Denies: vomiting, diarrhea or constipation : Denies: difficulty voiding Musc: Denies: back pain Neuro: Denies: headache(s) PFSH ED PFSH: Medical History Abnormal uterine bleeding (AUB) Anemia due to blood loss Arthritis of right knee Breast cancer Cervical radiculopathy Chronic back pain Chronic migraine Depression Enlarged uterus Expressive aphasia Hyperlipemia Does not tolerate fish oils Insomnia Lumbar radiculopathy Palpitation Stroke TIA (transient ischemic attack) (~2011) Tobacco abuse Surgical History H/O arthroscopic knee surgery LEFT KNEE H/O sinus surgery H/O tubal ligation Family History Family/Other Uterine cancer, Onset Age: 25 Maternal Aunt Father Stroke Grandmother Heart disease Maternal and paternal Grandfather Heart disease Maternal and paternal Denies family history of Colon cancer Ovarian cancer Diabetes Clotting disorder Hypercholesteremia Breast cancer Bleeding disorder Hypertension Thyroid disease Social History Smoking and tobacco/nicotine status: current every day tobacco/nicotine user cigarettes Packs smoked per day: 1 Years cigarettes smoked: 37 Second hand smoke exposure: Yes Alcohol intake: never Substance/Drug Use: never Female Reproductive History: Spontaneous abortions: No Physical Exam 2 Const: COMMON NORMALS: alert HENMT: COMMON NORMALS: normocephalic HEAD & SCALP: normocephalic MOUTH: Normal oral and palatal mucosa present Neck/C-Spine: COMMON NORMALS: full ROM Resp: COMMON NORMALS: normal respiratory effort and clear to auscultation bilaterally AUSCULTATION: clear to auscultation bilaterally Cardio: COMMON NORMALS: regular rate and regular rhythm RATE: regular rate RHYTHM: regular rhythm GI: COMMON NORMALS: Soft to palpation and non-tender PALPATION: Yes Soft to palpation Extremity: COMMON NORMALS: normal to inspection Neuro: SENSORIUM/ORIENTATION: Yes alert Skin: COMMON NORMALS: turgor normal GENERAL SKIN EXAM: turgor normal Course Vital Signs: Vital signs: Vital Signs Temperature 97.7 F 05/23/23 23:08 Pulse Rate 82 05/24/23 00:36 Respiratory Rate 16 05/24/23 00:36 Blood Pressure 115/64 05/24/23 00:36 Pulse Oximetry 97 05/24/23 00:36 Oxygen Delivery Me thod Room Air 05/23/23 23:08 MDM - Fever Medical Decision Making 47-year-old female comes in today for complaints of temperature of 100.7. On exam patient appears nontoxic. Patient appears no acute distress. Patient did receive her first dose of chemotherapy for breast cancer today. Patient is also finished a round of azithromycin for a rhinosinusitis. Differential diagnosis includes but not limited to fever secondary to chemotherapy, fever of unknown illness, worried well. Patient refused respiratory 2 panel, white blood cells were 12.7, neutrophils were 11.8, CMP noted a lactate of 2.7, sodium 143, CRP 3, urinalysis had trace blood. Patient appears nontoxic. Reviewed case with Dr. Hdez, attending ER physician, who recommended we contact and review patient with Dr. Novak, patient's on-call oncologist. We attempted to contact Dr. Novak but was unable to get through to him. No signs of severe illness is noted at this time. Reviewed labs with patient with recommendations for contacting Dr. Novak tomorrow during daylight hours so he can review labs online and offer further recommendations. Also recommended that patient should return to the ER for worsening symptoms such as shortness of breath, chest pain, persistent fever, or inability to hold fluids down. Patient reported understanding of care and agreed to plan. I did offer antibiotics to patient but she had just finished azithromycin and wanted to wait to follow-up with her primary care regarding other prescription. Lab Data 05/23/23 23:23 05/23/23 23:45 Laboratory Results WBC 12.78 10^3/uL (3.29-11.43) H 05/23/23 23:23 RBC 5.08 10^6/uL (3.85-5.65) 05/23/23 23:23 Hgb 13.40 g/dL (11.27-16.99) 05/23/23 23:23 Hct 43.2 % (36-47) 05/23/23 23:23 MCV 85.0 fl (85-98) 05/23/23 23:23 MCH 26.4 pg (27-33) L 05/23/23 23: MCHC 31.0 g/dL (30-55) 05/23/23 23:23 RDW 17.6 % (12.1-15.1) H 05/23/23 23:23 Plt Count 242 10^3/cmm (157-399) 05/23/23 23:23 MPV 11.3 fL (7.4-10.4) H 05/23/23 23:23 Neut % (Auto) 90.5 % 05/23/23 23:23 Lymph % (Auto) 7.2 % 05/23/23 23:23 [place] % (Auto) 1.3 % 05/23/23 23:23 Eos % (Auto) 0.0 % 05/23/23 23:23 Baso % (Auto) 0.2 % 05/23/23 23:23 Neut # (Auto) 11.58 10^3/uL (1.8-7.7) H 05/23/23 23:23 Lymph # (Auto) 0.9 10^3/uL (0.8-4.8) 05/23/23 23:23 [place] # (Auto) 0.2 10^3/uL (0.2-0.9) 05/23/23 23:23 Eos # (Auto) 0.0 10^3/uL (0.0-0.8) 05/23/23 23:23 Baso # (Auto) 0.0 10^3/uL (0.0-0.1) 05/23/23 23:23 Nucleated RBC % (auto) 0 % 05/23/23 23:23 Nucleated RBCs # 0.0 /100WBC 05/23/23 23:23 Sodium 143 mmol/L (136-145) 05/23/23 23:45 Potassium 3.7 mmol/L (3.5-5.1) 05/23/23 23:45 Chloride 110 mmol/L (98-107) H 05/23/23 23:45 Carbon Dioxide 22 mmol/L (22-29) 05/23/23 23:45 Anion Gap 14.7 (5-19) 05/23/23 23:45 BUN 14 mg/dL (6-20) 05/23/23 23:45 Creatinine 0.7 mg/dL (0.5-0.9) 05/23/23 23:45 GFR Calculation 88.9 mL/min (90-130) L 05/23/23 23:45 Glucose 144 mg/dL (65-115) H 05/23/23 23:45 Calculated Osmolality 299 mOsm/kg (285-295) H 05/23/23 23:45 Lactic Acid 2.8 mmol/L (0.5-2.2) H 05/23/23 23:23 Calcium 9.5 mg/dL (8.5-10.5) 05/23/23 23:45 Total Bilirubin 0.2 mg/dL (0.15-1.2) 05/23/23 23:45 AST 10 U/L (0-32) 05/23/23 23:45 ALT 9 U/L (0-33) 05/23/23 23:45 Alkaline Phosphatase 82 U/L (35-105) 05/23/23 23:45 C-Reactive Protein 3.0 mg/L (0.0-4.9) 05/23/23 23:45 Total Protein 7.0 g/dL (6.6-8.7) 05/23/23 23:45 Albumin 4.1 g/dL (3.5-5.2) 05/23/23 23:45 Globulin 2.9 g/dL (1.3-4.6) 05/23/23 23:45 Procalcitonin 0.02 ng/mL (0-0.5) 05/23/23 23:45 Urine Color Yellow (Yellow) 05/23/23 23:33 Urine Appearance Clear (CLEAR) 05/23/23 23:33 Urine pH 5 (5-7) 05/23/23 23:33 Ur Specific [place] 1.020 (1.005-1.030) 05/23/23 23:33 Urine Protein Neg (Negative) 05/23/23 23:33 Urine Glucose (UA) Trace (Normal) H 05/23/23 23:33 Urine Ketones 1+ (Negative) H 05/23/23 23:33 Urine Blood 3+ (Negative) H 05/23/23 23:33 Urine Nitrate Negative (Negative) 05/23/23 23:33 Urine Bilirubin Neg (Negative) 05/23/23 23:33 Urine Urobilinogen Norm mg/dL (Negative) 05/23/23 23:33 Ur Leukocyte Esterase Negative (Negative) 05/23/23 23:33 Urine RBC 10-15 /hpf (0-2) H 05/23/23 23:33 Urine WBC 0-4 /hpf (0-5) H 05/23/23 23:33 Ur Squamous Epith Cells 5-10 /hpf (0-5) H 05/23/23 23:33 Amorphous Sediment Not Reportable 05/23/23 23:33 Urine Bacteria 1+ /hpf (NONE) H 05/23/23 23:33 Urine Mucus 1+ /hpf 05/23/23 23:33 No radiology studies performed this visit Discharge Plan Discharge Patient Disposition: Home Clinical Impression: Adenocarcinoma of right breast Fever Qualifiers: Fever type: unspecified Qualified Code(s): R50.9 - Fever, unspecified Condition: Stable Prescriptions: No Action verapamil 120 mg tablet extended release 120 mg PO BID 30 Days Qty: 60 0RF tizanidine 4 mg tablet 4 mg PO Q8H PRN (Reason: muscle spasticity) Qty: 90 2RF Rx Instructions: do not take with tizantidine cyclobenzaprine 5 mg tablet 5 mg PO DAILY PRN (Reason: muscle spasm) 90 Days Qty: 90 3RF Rx Instructions: 1 PRN for muscle pain at bedtime ibuprofen 800 mg tablet 800 mg PO Q8H 90 Days Qty: 270 3RF azithromycin 250 mg tablet See Rx Instructions PO .COMPLEX Qty: 6 0RF Rx Instructions: take 500 mg today (day 1), then 250 mg for 4 days (days 2-5) PO rizatriptan 10 mg tablet See Rx Instructions PO .COMPLEX Qty: 1 0RF Rx Instructions: take 1 tab at onset of headache; if no relief may repeat 1 tab after at least 2 hrs; max = 3 tabs/24 hr PO ketorolac 10 mg tablet 10 mg PO Q6H PRN (Reason: pain) 5 Days Qty: 1 0RF diphenhydramine HCl [Benadryl] 25 mg capsule 25 mg PO TID PRN (Reason: allergy symptoms) Qty: 1 0RF promethazine 25 mg tablet 25 mg PO Q6H PRN (Reason: nausea and vomiting) Qty: 1 0RF Discharge Orders: Discharge ED (Routine); Ordered 05/24/23 Ordered By: Reza Cunningham Referrals: Jillian Taylor MD [Primary Care Provider] - Discharge Diet: Usual diet Discharge Activity: Increase activity as tolerated Patient Instructions: Fever - Adult Activity Restrictions/Additional Instructions: Continue drinking plenty of fluids. Use acetaminophen or ibuprofen as directed for pain or fever. Use medications as prescribed for nausea. Follow-up with primary care for further instructions. Follow-up with oncologist for review of labs and further instructions. Return to ED for worsening symptoms such as increased shortness of breath, persistent fever, inability to hold fluids down, or new concerns. Coding Level of Care Code ED [employer] for Rocio Del Cid
[2023-05-23 23:34] LABS: Basophils % 0.2 %; Hematocrit 43.2 % (36-47); Lymphocytes # 0.9 10^3/uL (0.8-4.8); Lymphocytes % 7.2 %; Mean Corpuscular Hemoglobin 26.4 pg (27-33); Mean Platelet Volume 11.3 fL (7.4-10.4); Monocytes # 0.2 10^3/uL (0.2-0.9); Monocytes % 1.3 %; Neutrophils # 11.58 10^3/uL (1.8-7.7); Neutrophils % 90.5 %; Nucleated Red Blood Cells % 0 %; Platelet Count 242 10^3/cmm (157-399); Red Blood Count 5.08 10^6/uL (3.85-5.65); Red Cell Distribution Width 17.6 % (12.1-15.1); White Blood Count 12.78 10^3/uL (3.29-11.43)
--- NOTE | 2023-05-23 23:43 | PC.NURSE ---
pt refused respiratory panel swab. pt is fearful that the swab may contain antifreeze. RN educated pt that swab does not contain it and will be helpful in obtaining lab results correlated to fever. pt verbalized understanding but still refused. ALBERENE STONE SETTER notified.
[2023-05-23 23:44] LABS: Lactic Sepsis W/Reflex 2.8 mmol/L (0.5-2.2)
[2023-05-23] MEDS: ondansetron 4 MG Tablet PO (23:47)
[2023-05-24 00:07] LABS: Add Urine Culture? Yes; Add Urine Microscopic? YES; Bacteria Urine 1+ /hpf; Bilirubin Urine Neg (Negative); Blood Urine 3+ (Negative); Glucose Urine UA Trace (Normal); Ketones Urine 1+ (Negative); Leukocyte Esterase Urine Negative (Negative); Mucus Urine 1+ /hpf; Nitrate Urine Negative (Negative); Protein Urine Neg (Negative); Urine Appearance Clear (CLEAR); Urine Color Yellow (Yellow); Urobilinogen Urine Norm (Negative); WBC Urine 0-4 /hpf (0-5); pH Urine 5 (5-7)
[2023-05-24] MEDS: sodium chloride 0.9% 1,000 ML 999 ML IV (00:10)
[2023-05-24 00:12] LABS: Alanine Aminotransferase 9 U/L (0-33); Albumin Level 4.1 g/dL (3.5-5.2); Alkaline Phosphatase 82 U/L (35-105); Anion Gap 14.7 (5-19); Aspartate Amino Transferase 10 U/L (0-32); Blood Urea Nitrogen 14 mg/dL (6-20); Calcium 9.5 mg/dL (8.5-10.5); Carbon Dioxide 22 mmol/L (22-29); Chloride 110 mmol/L (98-107); Globulin 2.9 g/dL (1.3-4.6); Glomerular Filtration Rate 88.9 mL/min (90-130); Glucose 144 mg/dL (65-115); Osmolality Calculated 299 mOsm/kg (285-295); Potassium 3.7 mmol/L (3.5-5.1); Sodium 143 mmol/L (136-145); Total Bilirubin 0.2 mg/dL (0.15-1.2)
[2023-05-24 00:18] LABS: Procalcitonin 0.02 ng/mL (0-0.5)
[2023-05-24 00:36] VITALS: BP 115/64; PULSE 82; RESP 16; O2SAT 97
[2023-05-24 01:00] VITALS: BP 115/64; PULSE 82; RESP 16; TEMP 36.6; O2SAT 97
[2023-05-24 01:13] LABS: Reflex Lactate Order REFLEX LACTIC ORDERD
== END 2023-05-24 01:01 | disposition home or self-care (01) ==
PROVIDERS: Emergency Provider Nurse Practitioner Family; PCP Family Medicine
DX: R50.9 Fever, unspecified (principal); C50.911 Malignant neoplasm of unspecified site of right female breast; F17.210 Nicotine dependence, cigarettes, uncomplicated; E78.5 Hyperlipidemia, unspecified; Z86.73 Personal history of transient ischemic attack (TIA), and cerebral infarction without residual deficits; Z51.11 Encounter for antineoplastic chemotherapy; C50.811 Malignant neoplasm of overlapping sites of right female breast; Z17.0 Estrogen receptor positive status [ER+]; Z79.899 Other long term (current) drug therapy
CPT/HCPCS: 80053; 81001; 81003; 83605; 84145; 85025; 86140; 87040; 87086; 96360; 96367; 96375; 96377; 96413; 96417; 99215; 99284; J1100; J1200; J1453; J1642; J2469; J2506; J3490; J7030; J7040; J7050; J9045; J9171; J9306; Q0162; Q5112

== ENCOUNTER 2023-05-28 15:18 | Oncology outpatient (recurring) (ONCR) | payer MEDICARE, SELFPAY | END 2023-05-31 23:59 | disposition home or self-care (01) | PROVIDERS: PCP Family Medicine; Visit Provider Internal Medicine Medical Oncology | DX: C50.811 Malignant neoplasm of overlapping sites of right female breast (principal); Z51.11 Encounter for antineoplastic chemotherapy; Z17.0 Estrogen receptor positive status [ER+]; F17.210 Nicotine dependence, cigarettes, uncomplicated; Z79.899 Other long term (current) drug therapy | CPT/HCPCS: 80053; 85025; 99213 ==

== ENCOUNTER → 2023-06-05 10:21 | Outpatient (BNVA) | payer MEDICARE, SELFPAY | PROVIDERS: PCP Family Medicine; Referring Provider Internal Medicine Medical Oncology; Visit Provider Internal Medicine Medical Oncology | DX: C50.811 Malignant neoplasm of overlapping sites of right female breast (principal) | CPT/HCPCS: 80053; 85025 ==

== ENCOUNTER 2023-06-19 08:00 | Oncology outpatient (recurring) (ONCR) | payer MEDICARE, MEDICAID, SELFPAY ==
[2023-06-13 08:46] VITALS: BP 125/77; PULSE 101; TEMP 36.6; O2SAT 97
[2023-06-13 09:11] LABS: Basophils # 0.1 10^3/uL (0.0-0.1); Basophils % 0.3 %; Hematocrit 38.8 % (36-47); Lymphocytes # 1.3 10^3/uL (0.8-4.8); Lymphocytes % 8.5 %; Mean Corpuscular Hemoglobin 27.1 pg (27-33); Mean Corpuscular Volume 84.7 fl (85-98); Mean Platelet Volume 9.3 fL (7.4-10.4); Monocytes # 0.4 10^3/uL (0.2-0.9); Monocytes % 2.4 %; Neutrophils # 13.09 10^3/uL (1.8-7.7); Neutrophils % 87.9 %; Nucleated Red Blood Cells % 0 %; Platelet Count 560 10^3/cmm (157-399); Red Blood Count 4.58 10^6/uL (3.85-5.65); Red Cell Distribution Width 17.6 % (12.1-15.1); White Blood Count 14.91 10^3/uL (3.29-11.43)
[2023-06-13 09:50] LABS: Alanine Aminotransferase 10 U/L (0-33); Albumin Level 4.1 g/dL (3.5-5.2); Alkaline Phosphatase 87 U/L (35-105); Anion Gap 17.2 (5-19); Aspartate Amino Transferase 9 U/L (0-32); Blood Urea Nitrogen 14 mg/dL (6-20); Calcium 10.3 mg/dL (8.5-10.5); Carbon Dioxide 24 mmol/L (22-29); Chloride 101 mmol/L (98-107); Globulin 3.6 g/dL (1.3-4.6); Glomerular Filtration Rate 88.9 mL/min (90-130); Glucose 186 mg/dL (65-115); Osmolality Calculated 291 mOsm/kg (285-295); Potassium 4.2 mmol/L (3.5-5.1); Sodium 138 mmol/L (136-145); Total Bilirubin 0.2 mg/dL (0.15-1.2); Total Protein 7.7 g/dL (6.6-8.7)
[2023-06-19 08:03] VITALS: BP 127/78; PULSE 85; RESP 16; TEMP 36.1; O2SAT 98
[2023-06-19 08:28] LABS: Basophils % 0.2 %; Eosinophils % 0.1 %; Hematocrit 39.7 % (36-47); Lymphocytes # 0.9 10^3/uL (0.8-4.8); Lymphocytes % 10.2 %; Mean Corpuscular HGB Conc 32.2 g/dL (30-55); Mean Corpuscular Hemoglobin 27.5 pg (27-33); Mean Corpuscular Volume 85.2 fl (85-98); Mean Platelet Volume 9.7 fL (7.4-10.4); Monocytes # 0.1 10^3/uL (0.2-0.9); Monocytes % 1.2 %; Neutrophils # 8.04 10^3/uL (1.8-7.7); Neutrophils % 87.6 %; Nucleated Red Blood Cells % 0 %; Platelet Count 343 10^3/cmm (157-399); Red Blood Count 4.66 10^6/uL (3.85-5.65); Red Cell Distribution Width 18.6 % (12.1-15.1); White Blood Count 9.18 10^3/uL (3.29-11.43)
[2023-06-19 08:55] LABS: Alanine Aminotransferase 12 U/L (0-33); Albumin Level 4.3 g/dL (3.5-5.2); Alkaline Phosphatase 96 U/L (35-105); Anion Gap 15.3 (5-19); Aspartate Amino Transferase 10 U/L (0-32); Blood Urea Nitrogen 13 mg/dL (6-20); Calcium 9.2 mg/dL (8.5-10.5); Carbon Dioxide 23 mmol/L (22-29); Chloride 103 mmol/L (98-107); Globulin 3.2 g/dL (1.3-4.6); Glomerular Filtration Rate 106.3 mL/min (90-130); Glucose 189 mg/dL (65-115); Osmolality Calculated 289 mOsm/kg (285-295); Potassium 4.3 mmol/L (3.5-5.1); Sodium 137 mmol/L (136-145); Total Bilirubin 0.2 mg/dL (0.15-1.2); Total Protein 7.5 g/dL (6.6-8.7)
[2023-06-19] MEDS: acetaminophen 325 mg Tablet 650 MG PO (10:15)
[2023-06-19] MEDS: diphenhydrAMINE 50 mg/mL SDV 1mL 25 MG IVP (10:15)
[2023-06-19] MEDS: sodium chloride 0.9% 250 ML 75 ML IV (10:15)
[2023-06-19] MEDS: OLANZapine 5 mg TABLET PO (10:15)
[2023-06-19] MEDS: famotidine 20 mg/2 mL INJ IVP (10:16)
[2023-06-19] MEDS: palonosetron 0.25 mg/5 mL SDV IVP (10:18)
[2023-06-19] MEDS: fosaprepitant 150 MG in sodium chloride 0.9% 150 ML 300 MG IV (10:43)
[2023-06-19] MEDS: pertuzumab 420 MG in sodium chloride 0.9% 250 ML 264 MG IV (11:19)
[2023-06-19] MEDS: [UNRECOGNIZED DRUG - REMARK] 265 MG IV (13:31)
[2023-06-19 15:58] VITALS: BP 112/71; PULSE 74; TEMP 36; O2SAT 94
[2023-06-19] MEDS: pegfilgrastim 6 mg/0.6 mL Kit (onpro) SUBCUT (15:58)
== END 2023-06-19 23:59 | disposition home or self-care (01) ==
PROVIDERS: Nurse Practitioner Family; PCP Family Medicine; Visit Provider Internal Medicine Medical Oncology
DX: C50.811 Malignant neoplasm of overlapping sites of right female breast (principal); Z79.899 Other long term (current) drug therapy; Z51.11 Encounter for antineoplastic chemotherapy; Z51.12 Encounter for antineoplastic immunotherapy; Z17.0 Estrogen receptor positive status [ER+]; F17.210 Nicotine dependence, cigarettes, uncomplicated; Z79.52 Long term (current) use of systemic steroids; R50.9 Fever, unspecified; K21.9 Gastro-esophageal reflux disease without esophagitis
CPT/HCPCS: 36591; 80053; 85025; 87040; 96367; 96375; 96377; 96413; 96417; 99214; J1100; J1200; J1453; J1642; J2469; J2506; J3490; J7040; J7050; J9045; J9171; J9306; Q5112

== ENCOUNTER → 2023-06-26 13:10 | Outpatient (BNVA) | payer MEDICARE, MEDICAID, SELFPAY | PROVIDERS: PCP Family Medicine; Referring Provider Internal Medicine Medical Oncology; Visit Provider Internal Medicine Medical Oncology | DX: C50.811 Malignant neoplasm of overlapping sites of right female breast (principal); Z79.899 Other long term (current) drug therapy | CPT/HCPCS: 80053; 85025 ==

== ENCOUNTER → 2023-07-03 13:16 | Outpatient (BNVA) | payer MEDICARE, MEDICAID, SELFPAY | PROVIDERS: PCP Family Medicine; Referring Provider Internal Medicine Medical Oncology; Visit Provider Internal Medicine Medical Oncology | DX: C50.811 Malignant neoplasm of overlapping sites of right female breast (principal) | CPT/HCPCS: 80053; 85025 ==

== ENCOUNTER 2023-07-10 09:03 | Oncology outpatient (recurring) (ONCR) | payer MEDICARE, MEDICAID, SELFPAY ==
[2023-07-10 09:15] VITALS: BMI 34.4
[2023-07-10 09:16] VITALS: BP 133/86; PULSE 94; RESP 18; TEMP 36.8; O2SAT 97
[2023-07-10 09:29] LABS: Basophils # 0.1 10^3/uL (0.0-0.1); Basophils % 0.4 %; Hematocrit 37.1 % (36-47); Lymphocytes # 1.2 10^3/uL (0.8-4.8); Lymphocytes % 8.8 %; Mean Corpuscular HGB Conc 32.3 g/dL (30-55); Mean Corpuscular Volume 86.7 fl (85-98); Monocytes # 0.6 10^3/uL (0.2-0.9); Monocytes % 4.4 %; Neutrophils # 11.14 10^3/uL (1.8-7.7); Neutrophils % 85.5 %; Nucleated Red Blood Cells % 0 %; Platelet Count 456 10^3/cmm (157-399); Red Blood Count 4.28 10^6/uL (3.85-5.65); Red Cell Distribution Width 19.7 % (12.1-15.1); White Blood Count 13.04 10^3/uL (3.29-11.43)
[2023-07-10 09:48] LABS: Alanine Aminotransferase 9 U/L (0-33); Albumin Level 3.9 g/dL (3.5-5.2); Alkaline Phosphatase 95 U/L (35-105); Anion Gap 16.2 (5-19); Aspartate Amino Transferase 9 U/L (0-32); Blood Urea Nitrogen 9 mg/dL (6-20); Calcium 10.4 mg/dL (8.5-10.5); Carbon Dioxide 23 mmol/L (22-29); Chloride 103 mmol/L (98-107); Globulin 3.6 g/dL (1.3-4.6); Glomerular Filtration Rate 106.3 mL/min (90-130); Glucose 151 mg/dL (65-115); Osmolality Calculated 288 mOsm/kg (285-295); Potassium 4.2 mmol/L (3.5-5.1); Sodium 138 mmol/L (136-145); Total Bilirubin 0.2 mg/dL (0.15-1.2); Total Protein 7.5 g/dL (6.6-8.7)
[2023-07-10] MEDS: sodium chloride 0.9% 250 ML 75 ML IV (10:52)
[2023-07-10] MEDS: OLANZapine 5 mg TABLET PO (10:53)
[2023-07-10] MEDS: acetaminophen 325 mg Tablet 650 MG PO (10:53)
[2023-07-10] MEDS: diphenhydrAMINE 50 mg/mL SDV 1mL 25 MG IVP (10:55)
[2023-07-10] MEDS: famotidine 20 mg/2 mL INJ IVP (10:59)
[2023-07-10] MEDS: palonosetron 0.25 mg/5 mL SDV IVP (11:02)
[2023-07-10] MEDS: fosaprepitant 150 MG in sodium chloride 0.9% 150 ML 300 MG IV (11:07)
[2023-07-10] MEDS: pertuzumab 420 MG in sodium chloride 0.9% 250 ML 264 MG IV (12:10)
[2023-07-10] MEDS: [UNRECOGNIZED DRUG - REMARK] 265 MG IV (13:42)
[2023-07-10] MEDS: pegfilgrastim 6 mg/0.6 mL Kit (onpro) SUBCUT (15:52)
[2023-07-10 15:59] VITALS: BP 120/79; PULSE 77; O2SAT 97
== END 2023-07-10 23:59 | disposition home or self-care (01) ==
PROVIDERS: Nurse Practitioner Family; PCP Family Medicine; Visit Provider Internal Medicine Medical Oncology
DX: C50.811 Malignant neoplasm of overlapping sites of right female breast (principal); Z51.11 Encounter for antineoplastic chemotherapy; Z17.0 Estrogen receptor positive status [ER+]; F17.210 Nicotine dependence, cigarettes, uncomplicated; Z79.899 Other long term (current) drug therapy
CPT/HCPCS: 80053; 85025; 96367; 96375; 96377; 96413; 96417; 99215; J1100; J1200; J1453; J1642; J2469; J2506; J3490; J7040; J7050; J9045; J9171; J9306; Q5112

== ENCOUNTER → 2023-07-17 14:08 | Outpatient (BNVA) | payer MEDICARE, MEDICAID, SELFPAY | PROVIDERS: PCP Family Medicine; Referring Provider Internal Medicine Medical Oncology; Visit Provider Internal Medicine Medical Oncology | DX: C50.811 Malignant neoplasm of overlapping sites of right female breast (principal) | CPT/HCPCS: 80053; 85025 ==

== ENCOUNTER 2023-07-31 08:47 | Oncology outpatient (recurring) (ONCR) | payer MEDICARE, MEDICAID, SELFPAY ==
[2023-07-31 09:23] LABS: Basophils % 0.4 %; Hematocrit 36.2 % (36-47); Lymphocytes # 1.3 10^3/uL (0.8-4.8); Lymphocytes % 11.5 %; Mean Corpuscular Hemoglobin 28.5 pg (27-33); Mean Corpuscular Volume 88.9 fl (85-98); Mean Platelet Volume 9.7 fL (7.4-10.4); Monocytes # 0.4 10^3/uL (0.2-0.9); Monocytes % 3.7 %; Neutrophils # 9.29 10^3/uL (1.8-7.7); Neutrophils % 83.8 %; Nucleated Red Blood Cells % 0 %; Platelet Count 416 10^3/cmm (157-399); Red Blood Count 4.07 10^6/uL (3.85-5.65); White Blood Count 11.09 10^3/uL (3.29-11.43)
[2023-07-31 09:30] LABS: Alanine Aminotransferase 10 U/L (0-33); Albumin Level 4.1 g/dL (3.5-5.2); Alkaline Phosphatase 90 U/L (35-105); Anion Gap 15.4 (5-19); Aspartate Amino Transferase 11 U/L (0-32); Blood Urea Nitrogen 7 mg/dL (6-20); Calcium 10.3 mg/dL (8.5-10.5); Carbon Dioxide 25 mmol/L (22-29); Chloride 100 mmol/L (98-107); Globulin 3.5 g/dL (1.3-4.6); Glomerular Filtration Rate 106.3 mL/min (90-130); Glucose 127 mg/dL (65-115); Osmolality Calculated 282 mOsm/kg (285-295); Potassium 4.4 mmol/L (3.5-5.1); Sodium 136 mmol/L (136-145); Total Bilirubin 0.2 mg/dL (0.15-1.2); Total Protein 7.6 g/dL (6.6-8.7)
[2023-07-31] MEDS: acetaminophen 325 mg Tablet 650 MG PO (11:02)
[2023-07-31] MEDS: sodium chloride 0.9% 250 ML 75 ML IV (11:02)
[2023-07-31] MEDS: OLANZapine 5 mg TABLET PO (11:04)
[2023-07-31] MEDS: palonosetron 0.25 mg/5 mL SDV IVP (11:14)
[2023-07-31] MEDS: diphenhydrAMINE 50 mg/mL SDV 1mL 25 MG IVP (11:32)
[2023-07-31] MEDS: famotidine 20 mg/2 mL INJ IVP (11:32)
[2023-07-31] MEDS: fosaprepitant 150 MG in sodium chloride 0.9% 150 ML 300 MG IV (11:33)
[2023-07-31] MEDS: pertuzumab 420 MG in sodium chloride 0.9% 250 ML 550 MG IV (12:09)
[2023-07-31 12:30] VITALS: BMI 34.0
[2023-07-31] MEDS: [UNRECOGNIZED DRUG - REMARK] 265 MG IV (13:54)
[2023-07-31] MEDS: pegfilgrastim 6 mg/0.6 mL Kit (onpro) SUBCUT (16:06)
[2023-07-31 16:24] VITALS: BP 127/85; PULSE 88; TEMP 36.4; O2SAT 98
== END 2023-07-31 23:59 | disposition home or self-care (01) ==
PROVIDERS: Internal Medicine; PCP Family Medicine; Visit Provider Internal Medicine Medical Oncology
DX: Z51.12 Encounter for antineoplastic immunotherapy (principal); Z51.11 Encounter for antineoplastic chemotherapy; C50.811 Malignant neoplasm of overlapping sites of right female breast; Z17.0 Estrogen receptor positive status [ER+]; F17.210 Nicotine dependence, cigarettes, uncomplicated; Z79.899 Other long term (current) drug therapy
CPT/HCPCS: 80053; 85025; 96367; 96375; 96377; 96413; 96417; 99214; J1100; J1200; J1453; J1642; J2469; J2506; J3490; J7040; J7050; J9045; J9171; J9306; Q5112

== ENCOUNTER 2023-08-20 13:01 | Outpatient (CLI) | payer MEDICARE, SELFPAY ==
--- NOTE | 2023-08-20 13:00 | USCV_ITS ---
Gem Valentine Age: 47 Gender: F : 1975 Exam Date: 08/20/2023 13:30 Ordering Phys: Brenda Durham APRN Technologist: LUCIO [place] [facility] [place]: high risk medication BP: 135 / 88 HR: 0 Rhythm: Sinus Technical Quality: Good MEASUREMENTS (Male / Female) Normal Values 2D ECHO LV Diastolic Diameter PLAX 4.0 cm 4.2 - 5.9 / 3.9 - 5.3 cm IVS Diastolic Thickness 1.3 cm 0.6 - 1.0 / 0.6 - 0.9 cm IVS Systolic Thickness 1.5 cm LVPW Diastolic Thickness 0.9 cm 0.6 - 1.0 / 0.6 - 0.9 cm LVPW Systolic Thickness 1.4 cm LVOT Diameter 2.0 cm LV Ejection Fraction 2D Teich 53.8 % LV Ejection Fraction MOD 2C 48.5 % Aorta at Sinotubular Diameter 2.7 cm IVC Diameter 1.3 cm M-MODE LA Ao Ratio MM 0.9 AV Cusp Separation MM 1.6 cm DOPPLER AV Peak Velocity 125.0 cm/s LVOT Peak Velocity 104.0 cm/s AV Area Cont Eq vti 3.0 cm squared AV Area Cont Eq pk 2.6 cm squared MV Area PHT 5.0 cm squared Mitral E to A Ratio 0.8 TV Peak Velocity 102.5 cm/s TR Peak Velocity 105.5 cm/s TR Peak Gradient 4.5 mmHg Right Atrial Pressure 3.0 mmHg Pulmonary Artery Systolic Pressu 7.5 mmHg PV Peak Velocity 85.0 cm/s FINDINGS Left Ventricle Normal left ventricular size and systolic function, EF57% . Grade I/IV diastolic dysfunction (abnormal relaxation filling pattern), normal to mildly elevated filling pressures. Right Ventricle Normal right ventricular size and systolic function. Right Atrium The right atrium is normal in size. Left Atrium The left atrium is normal in size. Mitral Valve No gross abnormalities noted Aortic Valve No gross abnormalities noted Tricuspid Valve No gross abnormalities noted Pulmonic Valve Pulmonic valve not well visualized. Pericardium No pericardial effusion. Aorta Normal aortic annulus size. IVC Normal inferior vena cava. CONCLUSIONS Normal left ventricular size and systolic function, EF57% . Grade I/IV diastolic dysfunction (abnormal relaxation filling pattern), normal to mildly elevated filling pressures. Normal chamber sizes. No pericardial effusion No intracardiac masses Compared to the study from 05/21/2023, there may not be a significant change Dr Jessica Layne MD FACC (Electronically Signed) Final Date: 21 August 2023 11:52 S
== END 2023-08-20 13:02 | disposition home or self-care (01) ==
LOC: RAD 13:02
PROVIDERS: PCP Family Medicine; Visit Provider Nurse Practitioner Family
DX: Z79.899 Other long term (current) drug therapy (principal)
CPT/HCPCS: 93308

== ENCOUNTER 2023-08-21 09:00 | Oncology outpatient (recurring) (ONCR) | payer MEDICARE, MEDICAID, SELFPAY ==
[2023-08-06 12:31] VITALS: BP 108/61; PULSE 111; RESP 18; TEMP 36.5; O2SAT 96
[2023-08-06 12:34] LABS: Basophils # 0.1 10^3/uL (0.0-0.1); Basophils % 1.9 %; Eosinophils # 0.1 10^3/uL (0.0-0.8); Eosinophils % 0.9 %; Hematocrit 35.5 % (36-47); Lymphocytes # 1.9 10^3/uL (0.8-4.8); Lymphocytes % 25.3 %; Mean Corpuscular HGB Conc 32.4 g/dL (30-55); Mean Corpuscular Volume 89.6 fl (85-98); Mean Platelet Volume 10.7 fL (7.4-10.4); Monocytes # 0.4 10^3/uL (0.2-0.9); Monocytes % 5.8 %; Neutrophils # 4.84 10^3/uL (1.8-7.7); Neutrophils % 65.2 %; Nucleated Red Blood Cells % 0 %; Platelet Count 239 10^3/cmm (157-399); Red Blood Count 3.96 10^6/uL (3.85-5.65); White Blood Count 7.43 10^3/uL (3.29-11.43)
[2023-08-06] MEDS: sodium chloride 0.9% 1,000 ML 999 ML IV (12:35)
[2023-08-06 12:50] LABS: Alanine Aminotransferase 13 U/L (0-33); Alkaline Phosphatase 132 U/L (35-105); Anion Gap 15.6 (5-19); Aspartate Amino Transferase 16 U/L (0-32); Blood Urea Nitrogen 10 mg/dL (6-20); Calcium 9.9 mg/dL (8.5-10.5); Carbon Dioxide 25 mmol/L (22-29); Chloride 100 mmol/L (98-107); Glomerular Filtration Rate 106.3 mL/min (90-130); Glucose 107 mg/dL (65-115); Osmolality Calculated 284 mOsm/kg (285-295); Potassium 3.6 mmol/L (3.5-5.1); Sodium 137 mmol/L (136-145); Total Bilirubin 0.2 mg/dL (0.15-1.2)
[2023-08-06 13:02] LABS: Slide Review Slide Review Perform
[2023-08-06 13:50] VITALS: BP 121/79; PULSE 101; TEMP 36.9; O2SAT 96
[2023-08-21 09:12] LABS: Basophils % 0.4 %; Hematocrit 37.5 % (36-47); Lymphocytes # 0.7 10^3/uL (0.8-4.8); Mean Corpuscular HGB Conc 31.2 g/dL (30-55); Mean Corpuscular Hemoglobin 29.7 pg (27-33); Mean Corpuscular Volume 95.2 fl (85-98); Mean Platelet Volume 9.7 fL (7.4-10.4); Monocytes # 0.2 10^3/uL (0.2-0.9); Monocytes % 1.7 %; Neutrophils # 8.31 10^3/uL (1.8-7.7); Neutrophils % 89.5 %; Nucleated Red Blood Cells % 0 %; Platelet Count 287 10^3/cmm (157-399); Red Blood Count 3.94 10^6/uL (3.85-5.65); Red Cell Distribution Width 21.2 % (12.1-15.1); White Blood Count 9.29 10^3/uL (3.29-11.43)
[2023-08-21 09:38] LABS: Alanine Aminotransferase 8 U/L (0-33); Albumin Level 3.8 g/dL (3.5-5.2); Alkaline Phosphatase 97 U/L (35-105); Anion Gap 13.6 (5-19); Aspartate Amino Transferase 12 U/L (0-32); Blood Urea Nitrogen 10 mg/dL (6-20); Calcium 9.6 mg/dL (8.5-10.5); Carbon Dioxide 24 mmol/L (22-29); Chloride 104 mmol/L (98-107); Globulin 3.4 g/dL (1.3-4.6); Glomerular Filtration Rate 106.3 mL/min (90-130); Glucose 175 mg/dL (65-115); Osmolality Calculated 287 mOsm/kg (285-295); Potassium 4.6 mmol/L (3.5-5.1); Sodium 137 mmol/L (136-145); Total Bilirubin 0.2 mg/dL (0.15-1.2); Total Protein 7.2 g/dL (6.6-8.7)
[2023-08-21] MEDS: sodium chloride 0.9% 250 ML 75 ML IV (12:28)
[2023-08-21] MEDS: acetaminophen 325 mg Tablet 650 MG PO (12:33)
[2023-08-21] MEDS: OLANZapine 5 mg TABLET PO (12:33)
[2023-08-21] MEDS: famotidine 20 mg/2 mL INJ IVP (12:34)
[2023-08-21] MEDS: palonosetron 0.25 mg/5 mL SDV IVP (12:36)
[2023-08-21] MEDS: diphenhydrAMINE 50 mg/mL SDV 1mL 25 MG IVP (12:37)
[2023-08-21] MEDS: fosaprepitant 150 MG in sodium chloride 0.9% 150 ML 300 MG IV (13:06)
[2023-08-21] MEDS: pertuzumab 420 MG in sodium chloride 0.9% 250 ML 264 MG IV (13:38)
[2023-08-21] MEDS: SODIUM CHLORIDE 0.9% IV (14:25)
[2023-08-21] MEDS: TRASTUZUMAB DTTB IV (14:25)
[2023-08-21] MEDS: [UNRECOGNIZED DRUG - REMARK] 265 MG IV (15:05)
[2023-08-21] MEDS: pegfilgrastim 6 mg/0.6 mL Kit (onpro) SUBCUT (16:56)
[2023-08-21 17:01] VITALS: BP 102/62; PULSE 87; TEMP 36.1; O2SAT 96
== END 2023-08-21 23:59 | disposition home or self-care (01) ==
PROVIDERS: Internal Medicine; PCP Family Medicine; Visit Provider Internal Medicine Medical Oncology
DX: C50.811 Malignant neoplasm of overlapping sites of right female breast (principal); Z17.0 Estrogen receptor positive status [ER+]; F17.210 Nicotine dependence, cigarettes, uncomplicated; Z79.899 Other long term (current) drug therapy; Z53.9 Procedure and treatment not carried out, unspecified reason; Z51.12 Encounter for antineoplastic immunotherapy
CPT/HCPCS: 80053; 85025; 96360; 96367; 96372; 96375; 96377; 96413; 96415; 99214; J1100; J1200; J1453; J1642; J2469; J2506; J3490; J7030; J7040; J7050; J9045; J9171; J9306; Q5112

== ENCOUNTER 2023-08-28 16:37 | Emergency (ER) | payer MEDICARE, MEDICAID, SELFPAY ==
[2023-08-28 16:56] VITALS: BP 106/71; PULSE 119; RESP 18; TEMP 36.6; O2SAT 98; BMI 34.1
[2023-08-28 17:12] LABS: Basophils # 0.1 10^3/uL (0.0-0.1); Basophils % 1.7 %; Eosinophils % 0.4 %; Hematocrit 40.3 % (36-47); Lymphocytes # 1.2 10^3/uL (0.8-4.8); Lymphocytes % 22.6 %; Mean Corpuscular HGB Conc 32.8 g/dL (30-55); Mean Corpuscular Hemoglobin 30.8 pg (27-33); Mean Corpuscular Volume 94.2 fl (85-98); Mean Platelet Volume 10.3 fL (7.4-10.4); Monocytes # 0.9 10^3/uL (0.2-0.9); Monocytes % 16.2 %; Neutrophils % 58.2 %; Nucleated Red Blood Cells % 0.4 %; Platelet Count 237 10^3/cmm (157-399); Red Blood Count 4.28 10^6/uL (3.85-5.65); Red Cell Distribution Width 19.8 % (12.1-15.1); White Blood Count 5.32 10^3/uL (3.29-11.43)
[2023-08-28 17:35] VITALS: BP 132/93; PULSE 132; O2SAT 99
[2023-08-28 17:46] LABS: Alanine Aminotransferase 11 U/L (0-33); Albumin Level 4.2 g/dL (3.5-5.2); Alkaline Phosphatase 124 U/L (35-105); Anion Gap 18.2 (5-19); Aspartate Amino Transferase 13 U/L (0-32); Blood Urea Nitrogen 12 mg/dL (6-20); Carbon Dioxide 21 mmol/L (22-29); Chloride 102 mmol/L (98-107); Creatinine Clr Calc Pharmacy 148.0952; Globulin 3.1 g/dL (1.3-4.6); Glomerular Filtration Rate 131.1 mL/min (90-130); Glucose 110 mg/dL (65-115); Lipase 47 U/L (13-60); Osmolality Calculated 284 mOsm/kg (285-295); Potassium 4.2 mmol/L (3.5-5.1); Sodium 137 mmol/L (136-145); Total Bilirubin 0.3 mg/dL (0.15-1.2); Total Protein 7.3 g/dL (6.6-8.7)
--- NOTE | 2023-08-28 17:54 | W.ED.NAVMDI ---
Documented by User: Cezar Prado DO 08/30/23 06:50 HPI - Nausea/Vomiting/Diarrhea General: Chief complaint: Nausea/Vomiting/Diarrhea Stated complaint: n/v, diarrhea Time Seen by Provider: 08/28/23 17:15 Source: patient Mode of arrival: ambulatory History of Present Illness: 47-year-old female presents emergency room with complaints of nausea vomiting diarrhea. She is 1 week post chemotherapy she has stage IIa breast cancer. She is to get adjuvant chemo and then a lumpectomy in the later date. Her oncology notes were reviewed. She has not had any hematemesis or coffee-ground was no dysuria urgency or frequency. She had tried some Zofran at home to help relieve her symptoms however she vomited it back up and her symptoms kept getting worse. MD elicited complaint: nausea, vomiting and diarrhea Onset (ago): hour(s) Description of vomiting: food contents and watery Description of diarrhea: watery Associated nausea: Yes Associated abdominal pain: Yes Location of pain: Diffuse Pain consistency: constant Severity: moderate Quality: cramping Exacerbating factors: none Relieving factors: none Associated symtoms: Reports malaise and nausea; Denies altered mental status, anxiety, bloating, change in vision, chest pain, cough, diaphoresis, decreased urine output, dizziness, dysuria, epistaxis, fatigue, fecal incontinence, fevers/chills, headache(s), anorexia, myalgias, numbness, palpitations, rash, short of breath, syncope, tenesmus, tinnitus or weakness Review of Systems Const: Reports: malaise; Denies: fever(s), chills, fatigue or diaphoresis Eyes: Denies: change in vision ENMT: Denies: tinnitus or epistaxis Card: Denies: chest pain, palpitations or syncope Resp: Denies: dyspnea GI: Reports: abdominal pain, nausea, vomiting and diarrhea; Denies: hematemesis, coffee ground emesis, bloating, fecal incontinence, hematochezia or melena : Denies: dysuria, urinary frequency or urinary urgency Musc: Denies: neck pain or back pain Skin/Breast: Denies: rash Neuro: Denies: headache(s) or dizziness Psych: Denies: anxiety PFSH ED PFSH: Medical History Breast cancer Enlarged uterus Stroke Palpitation Anemia due to blood loss Abnormal uterine bleeding (AUB) Depression Expressive aphasia Tobacco abuse Hyperlipemia Does not tolerate fish oils Arthritis of right knee Lumbar radiculopathy Cervical radiculopathy Chronic back pain TIA (transient ischemic attack) (~2011) Chronic migraine Insomnia Surgical History H/O arthroscopic knee surgery LEFT KNEE H/O tubal ligation H/O sinus surgery Family History Family/Other Uterine cancer, Onset Age: 25 Maternal Aunt Father Stroke Grandmother Heart disease Maternal and paternal Grandfather Heart disease Maternal and paternal Denies family history of Colon cancer Ovarian cancer Diabetes Clotting disorder Hypercholesteremia Breast cancer Bleeding disorder Hypertension Thyroid disease Social History Smoking and tobacco/nicotine status: current every day tobacco/nicotine user cigarettes Packs smoked per day: 1 Years cigarettes smoked: 37 Second hand smoke exposure: Yes Alcohol intake: never Substance/Drug Use: never Female Reproductive History: Spontaneous abortions: No Physical Exam Const: COMMON NORMALS: no acute distress EXAM LIMITATIONS: no altered mental status GENERAL APPEARANCE: cooperative and comfortable ORIENTATION/CONSCIOUSNESS: Yes awake, Yes oriented to person, Yes oriented to place and Yes oriented to time HENMT: COMMON NORMALS: normocephalic, atraumatic and hearing grossly normal bilaterally HEAD & SCALP: normocephalic and atraumatic Resp: COMMON NORMALS: normal respiratory effort, No retractions, No use of accessory muscles and clear to auscultation bilaterally AUSCULTATION: clear to auscultation bilaterally Cardio: COMMON NORMALS: regular rate, regular rhythm and No murmurs present (Cardio) RATE: regular rate RHYTHM: regular rhythm GI: COMMON NORMALS: Soft to palpation and No hepatosplenomegaly present AUSCULTATION: Yes normoactive bowel sounds PALPATION: Yes Soft to palpation, No Tenderness to palpation present (GI), No Guarding due to palpation present (GI) and Yes No hepatosplenomegaly present Extremity: COMMON NORMALS: normal to inspection, capillary refill normal, no clubbing, cyanosis or edema, no calf tenderness and no pedal edema Neuro: SENSORIUM/ORIENTATION: Yes oriented to person, Yes oriented to place and Yes oriented to time Skin: COMMON NORMALS: no rashes or lesions noted GENERAL SKIN EXAM: no rashes or lesions noted Course Vital Signs: Vital signs: Vital Signs Temperature 97.9 F 08/28/23 16:56 Pulse Rate 110 H 08/28/23 20:00 Respiratory Rate 16 08/28/23 20:00 Blood Pressure 105/71 08/28/23 20:00 Pulse Oximetry 96 08/28/23 20:00 Oxygen Delivery Me thod Room Air 08/28/23 18:32 MDM - Nausea/Vomiting/Diarrhea Medical Decision Making Care signed out to Dr. Hdez at change of shift. See final notes for diagnosis and disposition. Patient was turned over shift change. Lab work was reviewed with essentially unremarkable. Patient received 1 L normal saline, 8 mg of Zofran, and is feeling much better. Patient be discharged home to follow-up with her PCP. Patient be given a prescription of Zofran to take home as needed. Lab Data 08/28/23 17:04 08/28/23 17:04 Laboratory Results WBC 5.32 10^3/uL (3.29-11.43) 08/28/23 17:04 RBC 4.28 10^6/uL (3.85-5.65) 08/28/23 17:04 Hgb 13.20 g/dL (11.27-16.99) 08/28/23 17:04 Hct 40.3 % (36-47) 08/28/23 17:04 MCV 94.2 fl (85-98) 08/28/23 17:04 MCH 30.8 pg (27-33) 08/28/23 17:04 MCHC 32.8 g/dL (30-55) 08/28/23 17:04 RDW 19.8 % (12.1-15.1) H 08/28/23 17:04 Plt Count 237 10^3/cmm (157-399) 08/28/23 17:04 MPV 10.3 fL (7.4-10.4) 08/28/23 17:04 Neut % (Auto) 58.2 % 08/28/23 17:04 Lymph % (Auto) 22.6 % 08/28/23 17:04 Stark % (Auto) 16.2 % 08/28/23 17:04 Eos % (Auto) 0.4 % 08/28/23 17:04 Baso % (Auto) 1.7 % 08/28/23 17:04 Neut # (Auto) 3.10 10^3/uL (1.8-7.7) 08/28/23 17:04 Lymph # (Auto) 1.2 10^3/uL (0.8-4.8) 08/28/23 17:04 Stark # (Auto) 0.9 10^3/uL (0.2-0.9) 08/28/23 17:04 Eos # (Auto) 0.0 10^3/uL (0.0-0.8) 08/28/23 17:04 Baso # (Auto) 0.1 10^3/uL (0.0-0.1) 08/28/23 17:04 Nucleated RBC % (auto) 0.4 % 08/28/23 17:04 Nucleated RBCs # 0.0 /100WBC 08/28/23 17:04 Sodium 137 mmol/L (136-145) 08/28/23 17:04 Potassium 4.2 mmol/L (3.5-5.1) 08/28/23 17:04 Chloride 102 mmol/L (98-107) 08/28/23 17:04 Carbon Dioxide 21 mmol/L (22-29) L 08/28/23 17:04 Anion Gap 18.2 (5-19) 08/28/23 17:04 BUN 12 mg/dL (6-20) 08/28/23 17:04 Creatinine 0.5 mg/dL (0.5-0.9) 08/28/23 17:04 GFR Calculation 131.1 mL/min (90-130) H 08/28/23 17:04 Glucose 110 mg/dL (65-115) 08/28/23 17:04 Calculated Osmolality 284 mOsm/kg (285-295) L 08/28/23 17:04 Calcium 10.0 mg/dL (8.5-10.5) 08/28/23 17:04 Total Bilirubin 0.3 mg/dL (0.15-1.2) 08/28/23 17:04 AST 13 U/L (0-32) 08/28/23 17:04 ALT 11 U/L (0-33) 08/28/23 17:04 Alkaline Phosphatase 124 U/L (35-105) H 08/28/23 17:04 Total Protein 7.3 g/dL (6.6-8.7) 08/28/23 17:04 Albumin 4.2 g/dL (3.5-5.2) 08/28/23 17:04 Globulin 3.1 g/dL (1.3-4.6) 08/28/23 17:04 Lipase 47 U/L (13-60) 08/28/23 17:04 Discharge Plan Discharge Patient Disposition: Home Clinical Impression: Nausea & vomiting Qualifiers: Vomiting type: unspecified Qualified Code(s): R11.2 - Nausea with vomiting, unspecified Condition: Stable Prescriptions: New ondansetron HCl 4 mg tablet 4 mg PO Q8H PRN (Reason: nausea and vomiting) Qty: 14 0RF No Action verapamil 120 mg tablet extended release 120 mg PO BID 30 Days Qty: 60 0RF prochlorperazine maleate 10 mg tablet 10 mg PO QID PRN dexamethasone 4 mg tablet 4 mg PO BID ondansetron 4 mg tablet,disintegrating 4 mg PO QID pantoprazole [Protonix] 40 mg tablet,delayed release (DR/EC) 40 mg PO DAILY Qty: 30 2RF tizanidine 4 mg tablet 4 mg PO Q8H PRN (Reason: muscle spasticity) Qty: 90 2RF Rx Instructions: do not take with tizantidine cyclobenzaprine 5 mg tablet 5 mg PO DAILY PRN (Reason: muscle spasm) 90 Days Qty: 90 3RF Rx Instructions: 1 PRN for muscle pain at bedtime ibuprofen 800 mg tablet 800 mg PO Q8H 90 Days Qty: 270 3RF rizatriptan 10 mg tablet See Rx Instructions PO .COMPLEX Qty: 1 1RF Rx Instructions: take 1 tab at onset of headache; if no relief may repeat 1 tab after at least 2 hrs; max = 3 tabs/24 hr PO ketorolac 10 mg tablet 10 mg PO Q6H PRN (Reason: pain) 5 Days Qty: 1 0RF diphenhydramine HCl [Benadryl] 25 mg capsule 25 mg PO TID PRN (Reason: allergy symptoms) Qty: 1 0RF promethazine 25 mg tablet 25 mg PO Q6H PRN (Reason: nausea and vomiting) Qty: 1 0RF gabapentin 300 mg capsule 300 mg PO TID Qty: 90 2RF Discharge Orders: Discharge ED (Routine); Ordered 08/28/23 Ordered By: Chris Hdez Referrals: Jillian Taylor MD [Primary Care Provider] - 1 week Patient Instructions: Acute Nausea and Vomiting (DC) Activity Restrictions/Additional Instructions: Your lab work was unremarkable. You are given Zofran and normal saline in the ER. You will be provided with a prescription of Zofran to go home on to take on an as-needed basis. Please follow-up with your family practice doctor or oncologist for further evaluation and treatment. If your symptoms persist or worsen please feel free to return to the ER. Coding Level of Care Code ED Visitor Services Information Assistant for [facility] Documented by User: Chris Hdez DO 08/29/23 05:46 HPI - Nausea/Vomiting/Diarrhea General: Chief complaint: Nausea/Vomiting/Diarrhea Stated complaint: n/v, diarrhea Time Seen by Provider: 08/28/23 17:15 PFSH ED PFSH: Medical History Breast cancer Enlarged uterus Stroke Palpitation Anemia due to blood loss Abnormal uterine bleeding (AUB) Depression Expressive aphasia Tobacco abuse Hyperlipemia Does not tolerate fish oils Arthritis of right knee Lumbar radiculopathy Cervical radiculopathy Chronic back pain TIA (transient ischemic attack) (~2011) Chronic migraine Insomnia Surgical History H/O arthroscopic knee surgery LEFT KNEE H/O tubal ligation H/O sinus surgery Family History Family/Other Uterine cancer, Onset Age: 25 Maternal Aunt Father Stroke Grandmother Heart disease Maternal and paternal Grandfather Heart disease Maternal and paternal Denies family history of Colon cancer Ovarian cancer Diabetes Clotting disorder Hypercholesteremia Breast cancer Bleeding disorder Hypertension Thyroid disease Social History Smoking and tobacco/nicotine status: current every day tobacco/nicotine user cigarettes Packs smoked per day: 1 Years cigarettes smoked: 37 Second hand smoke exposure: Yes Alcohol intake: never Substance/Drug Use: never Course Vital Signs: Vital signs: Vital Signs Temperature 97.9 F 08/28/23 16:56 Pulse Rate 110 H 08/28/23 20:00 Respiratory Rate 16 08/28/23 20:00 Blood Pressure 105/71 08/28/23 20:00 Pulse Oximetry 96 08/28/23 20:00 Oxygen Delivery Me thod Room Air 08/28/23 18:32 MDM - Nausea/Vomiting/Diarrhea Medical Decision Making Patient was turned over shift change. Lab work was reviewed with essentially unremarkable. Patient received 1 L normal saline, 8 mg of Zofran, and is feeling much better. Patient be discharged home to follow-up with her PCP. Patient be given a prescription of Zofran to take home as needed. Lab Data 08/28/23 17:04 08/28/23 17:04 Laboratory Results WBC 5.32 10^3/uL (3.29-11.43) 08/28/23 17:04 RBC 4.28 10^6/uL (3.85-5.65) 08/28/23 17:04 Hgb 13.20 g/dL (11.27-16.99) 08/28/23 17:04 Hct 40.3 % (36-47) 08/28/23 17:04 MCV 94.2 fl (85-98) 08/28/23 17:04 MCH 30.8 pg (27-33) 08/28/23 17:04 MCHC 32.8 g/dL (30-55) 08/28/23 17:04 RDW 19.8 % (12.1-15.1) H 08/28/23 17:04 Plt Count 237 10^3/cmm (157-399) 08/28/23 17:04 MPV 10.3 fL (7.4-10.4) 08/28/23 17:04 Neut % (Auto) 58.2 % 08/28/23 17:04 Lymph % (Auto) 22.6 % 08/28/23 17:04 Stark % (Auto) 16.2 % 08/28/23 17:04 Eos % (Auto) 0.4 % 08/28/23 17:04 Baso % (Auto) 1.7 % 08/28/23 17:04 Neut # (Auto) 3.10 10^3/uL (1.8-7.7) 08/28/23 17:04 Lymph # (Auto) 1.2 10^3/uL (0.8-4.8) 08/28/23 17:04 Stark # (Auto) 0.9 10^3/uL (0.2-0.9) 08/28/23 17:04 Eos # (Auto) 0.0 10^3/uL (0.0-0.8) 08/28/23 17:04 Baso # (Auto) 0.1 10^3/uL (0.0-0.1) 08/28/23 17:04 Nucleated RBC % (auto) 0.4 % 08/28/23 17:04 Nucleated RBCs # 0.0 /100WBC 08/28/23 17:04 Sodium 137 mmol/L (136-145) 08/28/23 17:04 Potassium 4.2 mmol/L (3.5-5.1) 08/28/23 17:04 Chloride 102 mmol/L (98-107) 08/28/23 17:04 Carbon Dioxide 21 mmol/L (22-29) L 08/28/23 17:04 Anion Gap 18.2 (5-19) 08/28/23 17:04 BUN 12 mg/dL (6-20) 08/28/23 17:04 Creatinine 0.5 mg/dL (0.5-0.9) 08/28/23 17:04 GFR Calculation 131.1 mL/min (90-130) H 08/28/23 17:04 Glucose 110 mg/dL (65-115) 08/28/23 17:04 Calculated Osmolality 284 mOsm/kg (285-295) L 08/28/23 17:04 Calcium 10.0 mg/dL (8.5-10.5) 08/28/23 17:04 Total Bilirubin 0.3 mg/dL (0.15-1.2) 08/28/23 17:04 AST 13 U/L (0-32) 08/28/23 17:04 ALT 11 U/L (0-33) 08/28/23 17:04 Alkaline Phosphatase 124 U/L (35-105) H 08/28/23 17:04 Total Protein 7.3 g/dL (6.6-8.7) 08/28/23 17:04 Albumin 4.2 g/dL (3.5-5.2) 08/28/23 17:04 Globulin 3.1 g/dL (1.3-4.6) 08/28/23 17:04 Lipase 47 U/L (13-60) 08/28/23 17:04 All radiology interpretation(s) finalized by discharge Discharge Plan Discharge Patient Disposition: Home Clinical Impression: Nausea & vomiting Qualifiers: Vomiting type: unspecified Qualified Code(s): R11.2 - Nausea with vomiting, unspecified Condition: Stable Prescriptions: New ondansetron HCl 4 mg tablet 4 mg PO Q8H PRN (Reason: nausea and vomiting) Qty: 14 0RF No Action verapamil 120 mg tablet extended release 120 mg PO BID 30 Days Qty: 60 0RF prochlorperazine maleate 10 mg tablet 10 mg PO QID PRN dexamethasone 4 mg tablet 4 mg PO BID ondansetron 4 mg tablet,disintegrating 4 mg PO QID pantoprazole [Protonix] 40 mg tablet,delayed release (DR/EC) 40 mg PO DAILY Qty: 30 2RF tizanidine 4 mg tablet 4 mg PO Q8H PRN (Reason: muscle spasticity) Qty: 90 2RF Rx Instructions: do not take with tizantidine cyclobenzaprine 5 mg tablet 5 mg PO DAILY PRN (Reason: muscle spasm) 90 Days Qty: 90 3RF Rx Instructions: 1 PRN for muscle pain at bedtime ibuprofen 800 mg tablet 800 mg PO Q8H 90 Days Qty: 270 3RF rizatriptan 10 mg tablet See Rx Instructions PO .COMPLEX Qty: 1 1RF Rx Instructions: take 1 tab at onset of headache; if no relief may repeat 1 tab after at least 2 hrs; max = 3 tabs/24 hr PO ketorolac 10 mg tablet 10 mg PO Q6H PRN (Reason: pain) 5 Days Qty: 1 0RF diphenhydramine HCl [Benadryl] 25 mg capsule 25 mg PO TID PRN (Reason: allergy symptoms) Qty: 1 0RF promethazine 25 mg tablet 25 mg PO Q6H PRN (Reason: nausea and vomiting) Qty: 1 0RF gabapentin 300 mg capsule 300 mg PO TID Qty: 90 2RF Discharge Orders: Discharge ED (Routine); Ordered 08/28/23 Ordered By: Chris Hdez Referrals: Jillian Taylor MD [Primary Care Provider] - 1 week Patient Instructions: Acute Nausea and Vomiting (DC) Activity Restrictions/Additional Instructions: Your lab work was unremarkable. You are given Zofran and normal saline in the ER. You will be provided with a prescription of Zofran to go home on to take on an as-needed basis. Please follow-up with your family practice doctor or oncologist for further evaluation and treatment. If your symptoms persist or worsen please feel free to return to the ER. Coding Level of Care Code ED Visitor Services Information Assistant for [facility]
[2023-08-28 18:02] LABS: Slide Review Slide Review Perform
[2023-08-28] MEDS: ondansetron 2 mg/ML SDV 2 mL 8 MG IVP (18:07)
[2023-08-28] MEDS: sodium chloride 0.9% 1,000 ML 999 ML IV ×2 (18:09→19:38)
[2023-08-28 18:32] VITALS: BP 121/89; PULSE 101; O2SAT 98
[2023-08-28 20:00] VITALS: BP 105/71; PULSE 110; RESP 16; O2SAT 96
== END 2023-08-28 20:39 | disposition home or self-care (01) ==
PROVIDERS: Emergency Medicine; Emergency Provider Family Medicine; PCP Family Medicine
DX: R11.2 Nausea with vomiting, unspecified (principal); C50.919 Malignant neoplasm of unspecified site of unspecified female breast; Z79.60 Long term (current) use of unspecified immunomodulators and immunosuppressants; F17.210 Nicotine dependence, cigarettes, uncomplicated; Z86.73 Personal history of transient ischemic attack (TIA), and cerebral infarction without residual deficits; E78.5 Hyperlipidemia, unspecified
CPT/HCPCS: 36415; 80053; 83690; 85025; 96361; 96374; 96375; 99284; J1642; J2405; J7030

== ENCOUNTER 2023-09-06 11:29 | Outpatient (CLI) | payer MEDICARE, SELFPAY ==
--- NOTE | 2023-09-06 12:15 | USCV_ITS ---
Gem Valentine Age: 47 Gender: F : 1975 Exam Date: 09/06/2023 11:43 Ordering Phys: Brenda Durham APRN Technologist: JENNY Exam Location: [facility] [place] Indication: CHANGE IN EF POST CHEMO TREATMENT BP: / HR: 114 Rhythm: Sinus Technical Quality: Adequate MEASUREMENTS (Male / Female) Normal Values 2D ECHO LA Diameter 2.4 cm Aorta at Sinotubular Diameter 3.3 cm FINDINGS Left Ventricle Normal left ventricular size and systolic function, EF 65%.no regional wall motion abnormalities. Right Ventricle Normal right ventricular size and systolic function. Right Atrium The right atrium is normal in size. Left Atrium The left atrium is normal in size. Mitral Valve No gross abnormalities noted Aortic Valve No gross abnormalities noted Tricuspid Valve No gross abnormalities noted Pulmonic Valve No gross abnormalities noted Pericardium No pericardial effusion. Aorta Normal ascending aorta dimension. IVC Normal inferior vena cava. CONCLUSIONS Normal left ventricular size and systolic function, EF 65%. No regional wall motion abnormalities. Normal cardiac chamber sizes. No Significant stenotic or regurgitant lesions There is no pericardial effusion. There are no intracardiac masses. Compared to the study from 08/20/2023, there may not be a significant change Dr Jessica Layne MD FACC (Electronically Signed) Final Date: 09 September 2023 19:55 S
== END 2023-09-06 11:30 | disposition home or self-care (01) ==
PROVIDERS: PCP Family Medicine; Visit Provider Nurse Practitioner Family
DX: Z79.899 Other long term (current) drug therapy (principal); Z92.21 Personal history of antineoplastic chemotherapy
CPT/HCPCS: 93308

== ENCOUNTER 2023-09-11 07:30 | Oncology outpatient (recurring) (ONCR) | payer MEDICARE, MEDICAID, SELFPAY ==
[2023-09-11 08:27] LABS: Basophils % 0.3 %; Hematocrit 37.6 % (36-47); Lymphocytes # 0.9 10^3/uL (0.8-4.8); Lymphocytes % 8.7 %; Mean Corpuscular HGB Conc 32.2 g/dL (30-55); Mean Corpuscular Hemoglobin 31.2 pg (27-33); Mean Corpuscular Volume 96.9 fl (85-98); Mean Platelet Volume 9.5 fL (7.4-10.4); Monocytes # 0.2 10^3/uL (0.2-0.9); Monocytes % 2.1 %; Neutrophils # 8.64 10^3/uL (1.8-7.7); Neutrophils % 88.6 %; Nucleated Red Blood Cells % 0 %; Platelet Count 275 10^3/cmm (157-399); Red Blood Count 3.88 10^6/uL (3.85-5.65); Red Cell Distribution Width 19.3 % (12.1-15.1); White Blood Count 9.75 10^3/uL (3.29-11.43)
[2023-09-11 08:59] LABS: Alanine Aminotransferase 9 U/L (0-33); Albumin Level 3.9 g/dL (3.5-5.2); Alkaline Phosphatase 80 U/L (35-105); Anion Gap 17.2 (5-19); Aspartate Amino Transferase 14 U/L (0-32); Blood Urea Nitrogen 10 mg/dL (6-20); Calcium 10.1 mg/dL (8.5-10.5); Carbon Dioxide 24 mmol/L (22-29); Chloride 98 mmol/L (98-107); Globulin 3.5 g/dL (1.3-4.6); Glomerular Filtration Rate 131.1 mL/min (90-130); Glucose 175 mg/dL (65-115); Osmolality Calculated 283 mOsm/kg (285-295); Potassium 4.2 mmol/L (3.5-5.1); Sodium 135 mmol/L (136-145); Total Bilirubin 0.2 mg/dL (0.15-1.2); Total Protein 7.4 g/dL (6.6-8.7)
[2023-09-11] MEDS: diphenhydrAMINE 50 mg/mL SDV 1mL 25 MG IVP (10:23)
[2023-09-11] MEDS: acetaminophen 325 mg Tablet 650 MG PO (10:23)
[2023-09-11] MEDS: sodium chloride 0.9% 250 ML 75 ML IV (10:23)
[2023-09-11] MEDS: famotidine 20 mg/2 mL INJ IVP (10:24)
[2023-09-11] MEDS: pertuzumab 420 MG in sodium chloride 0.9% 250 ML 264 MG IV (10:43)
[2023-09-11] MEDS: TRASTUZUMAB DTTB IV (11:36)
[2023-09-11] MEDS: SODIUM CHLORIDE 0.9% IV (11:36)
[2023-09-11 12:15] VITALS: BP 100/67; PULSE 93; RESP 16; O2SAT 95
== END 2023-09-11 23:59 | disposition home or self-care (01) ==
PROVIDERS: Nurse Practitioner Family; PCP Family Medicine; Visit Provider Internal Medicine Medical Oncology
DX: C50.811 Malignant neoplasm of overlapping sites of right female breast (principal); Z51.11 Encounter for antineoplastic chemotherapy; Z17.0 Estrogen receptor positive status [ER+]; F17.210 Nicotine dependence, cigarettes, uncomplicated; Z79.899 Other long term (current) drug therapy; Z51.12 Encounter for antineoplastic immunotherapy; Z95.828 Presence of other vascular implants and grafts; G62.0 Drug-induced polyneuropathy; T45.1X5A Adverse effect of antineoplastic and immunosuppressive drugs, initial encounter
CPT/HCPCS: 80053; 85025; 96375; 96413; 96417; 99214; J1200; J1642; J3490; J7050; J9306; Q5112

== ENCOUNTER → 2023-10-19 11:21 | Outpatient (BNVA) | payer MEDICARE, MEDICAID, SELFPAY | PROVIDERS: PCP Family Medicine; Referring Provider Family Medicine; Visit Provider Family Medicine | DX: M25.552 Pain in left hip (principal); G89.29 Other chronic pain; M19.09 Primary osteoarthritis, other specified site | CPT/HCPCS: 73502 ==

== ENCOUNTER 2023-10-23 12:30 | Oncology outpatient (recurring) (ONCR) | payer MEDICARE, MEDICAID, SELFPAY ==
[2023-10-02 11:20] LABS: Basophils # 0.1 10^3/uL (0.0-0.1); Basophils % 1.3 %; Eosinophils # 0.4 10^3/uL (0.0-0.8); Hematocrit 40.3 % (36-47); Lymphocytes # 1.8 10^3/uL (0.8-4.8); Lymphocytes % 28.9 %; Mean Corpuscular HGB Conc 32.3 g/dL (30-55); Mean Corpuscular Hemoglobin 31.9 pg (27-33); Mean Platelet Volume 10.2 fL (7.4-10.4); Monocytes # 0.5 10^3/uL (0.2-0.9); Monocytes % 8.1 %; Neutrophils # 3.52 10^3/uL (1.8-7.7); Neutrophils % 55.5 %; Nucleated Red Blood Cells % 0 %; Platelet Count 167 10^3/cmm (157-399); Red Blood Count 4.07 10^6/uL (3.85-5.65); Red Cell Distribution Width 17.1 % (12.1-15.1); White Blood Count 6.33 10^3/uL (3.29-11.43)
[2023-10-02 11:39] LABS: Alkaline Phosphatase 74 U/L (35-105); Anion Gap 14.1 (5-19); Aspartate Amino Transferase 17 U/L (0-32); Blood Urea Nitrogen 10 mg/dL (6-20); Calcium 9.6 mg/dL (8.5-10.5); Carbon Dioxide 25 mmol/L (22-29); Chloride 106 mmol/L (98-107); Globulin 3.1 g/dL (1.3-4.6); Glomerular Filtration Rate 88.9 mL/min (90-130); Glucose 136 mg/dL (65-115); Osmolality Calculated 293 mOsm/kg (285-295); Potassium 4.1 mmol/L (3.5-5.1); Sodium 141 mmol/L (136-145); Total Bilirubin 0.2 mg/dL (0.15-1.2); Total Protein 7.1 g/dL (6.6-8.7)
[2023-10-02 11:50] LABS: Alanine Aminotransferase 15 U/L (0-33)
[2023-10-02] MEDS: acetaminophen 325 mg Tablet 650 MG PO (14:54)
[2023-10-02] MEDS: diphenhydrAMINE 25 mg Capsule PO (14:55)
[2023-10-02] MEDS: pertuzumab-trastuzumab-hy-zzxf (60 mg-60mg-2000 units/mL) 10mL 600 MG SUBCUT (15:08)
[2023-10-02 15:22] VITALS: BP 124/83; PULSE 107; O2SAT 98
[2023-10-23 12:28] LABS: Basophils # 0.1 10^3/uL (0.0-0.1); Basophils % 1.4 %; Eosinophils # 0.2 10^3/uL (0.0-0.8); Eosinophils % 3.2 %; Hematocrit 42.6 % (36-47); Lymphocytes # 1.9 10^3/uL (0.8-4.8); Lymphocytes % 28.8 %; Mean Corpuscular HGB Conc 32.4 g/dL (30-55); Mean Corpuscular Hemoglobin 31.4 pg (27-33); Mean Corpuscular Volume 96.8 fl (85-98); Mean Platelet Volume 9.9 fL (7.4-10.4); Monocytes # 0.6 10^3/uL (0.2-0.9); Monocytes % 8.4 %; Neutrophils # 3.84 10^3/uL (1.8-7.7); Neutrophils % 57.9 %; Nucleated Red Blood Cells % 0 %; Platelet Count 183 10^3/cmm (157-399); Red Cell Distribution Width 14.4 % (12.1-15.1); White Blood Count 6.63 10^3/uL (3.29-11.43)
[2023-10-23 12:45] LABS: Alanine Aminotransferase 10 U/L (0-33); Albumin Level 3.9 g/dL (3.5-5.2); Alkaline Phosphatase 83 U/L (35-105); Aspartate Amino Transferase 12 U/L (0-32); Blood Urea Nitrogen 8 mg/dL (6-20); Calcium 9.9 mg/dL (8.5-10.5); Carbon Dioxide 26 mmol/L (22-29); Chloride 105 mmol/L (98-107); Creatinine Clr Calc Pharmacy 92.8028; Globulin 3.1 g/dL (1.3-4.6); Glomerular Filtration Rate 76.2 mL/min (90-130); Glucose 105 mg/dL (65-115); Osmolality Calculated 289 mOsm/kg (285-295); Sodium 140 mmol/L (136-145); Total Bilirubin 0.2 mg/dL (0.15-1.2)
[2023-10-23] MEDS: diphenhydrAMINE 25 mg Capsule PO (14:57)
[2023-10-23] MEDS: acetaminophen 325 mg Tablet 650 MG PO (14:57)
[2023-10-23] MEDS: pertuzumab-trastuzumab-hy-zzxf (60 mg-60mg-2000 units/mL) 10mL 600 MG SUBCUT (15:11)
== END 2023-10-23 23:59 | disposition home or self-care (01) ==
PROVIDERS: Nurse Practitioner Family; PCP Family Medicine; Visit Provider Internal Medicine Medical Oncology
DX: Z53.9 Procedure and treatment not carried out, unspecified reason (principal); C50.811 Malignant neoplasm of overlapping sites of right female breast; Z17.0 Estrogen receptor positive status [ER+]; Z79.899 Other long term (current) drug therapy; Z51.11 Encounter for antineoplastic chemotherapy
CPT/HCPCS: 36415; 80053; 85025; 96402; 99214; J9316

== ENCOUNTER 2023-11-13 13:30 | Oncology outpatient (recurring) (ONCR) | payer MEDICARE, MEDICAID, SELFPAY ==
--- NOTE | 2023-11-07 11:03 | N.ONRAD NP_ITS ---
Radiation Oncology New Patient Visit Patient: Gem Valentine MR#: [id number] : 1975> Age: 47> Sex: Female> Dictated by: Fabricio Minaya Date of Service: 11/06/2023 Referring Physician(s) : Diagnosis: Clinical st II (T2 N0 M0) multifocal Gr 2-3 IDC of superior right breast s/p initial bx 03/14/2023. S/P neoadjuvant chemotherapy followed by lumpectomy and ax ln sampling 10/05/2023 with pathologic complete response. Here to address adjuvant radiation. Radiotherapy to date: Summary > No prior radiation therapy. Chief Complaint / History of Present Illness: She noted an asymptomatic mass in superior right breast in fall of 2022. Bx here 03/14/2023 Gr 2 IDC ER 80%, PR1%, H2N 3 + PET/CT 04/17/2023 revealed no occult met disease Bx 05/08/2023 again at 12:00 Gr 2 IDC, at 12;30 Gr 3 IDC. She underwent NACT completed 08/21/2023. Right lumpectomy and axillary LN sampling with port removal 10/05/2023. No residual disease seen. Now on Herceptin or equivalent therapy through 05/2024. Some post op right axillary numbness and soreness. Still smoking 1ppd and does not think that she can stop. Lives at home with her . Current Medications: cyclobenzaprine 5 mg PO DAILY PRN 90 days, diphenhydramine HCl (Benadryl) 25 mg PO TID PRN, fexofenadine-pseudoephedrine 60-120 mg ER (Lexie-D 12 Hour) 1 tab PO Q12H PRN 14 days, gabapentin 300 mg PO TID, ibuprofen 800 mg PO Q8H 90 days, ketorolac 10 mg PO Q6H PRN 5 days, [id number]-cfzdqocww-SQ 3.5-10,000-1 mg/mL-unit/mL-% 4 drps otic (ear) Q8H 10 days, nystatin 1 applic topical BID, ondansetron 4 mg PO QID, ondansetron HCl 4 mg PO Q8H PRN, pantoprazole (Protonix) 40 mg PO DAILY 90 days, prochlorperazine maleate 10 mg PO QID PRN, promethazine 25 mg PO Q6H PRN, rizatriptan take 1 tab at onset of headache; if no relief may repeat 1 tab after at least 2 hrs; max = 3 tabs/24 hr PO, tizanidine 4 mg PO Q8H PRN, verapamil ER 120 mg PO BID 90 days Allergies: terfenadine [From Seldane] Allergy (Mild, Verified 10/23/23 14:03) UNKNOWN, amoxicillin Allergy (Unknown, Verified 10/23/23 14:03) UNKNOWN, ceftriaxone [From Rocephin] Allergy (Unknown, Verified 10/23/23 14:03) UNKNOWN, cephalexin Allergy (Unknown, Verified 10/23/23 14:03) UNKNOWN, ciprofloxacin Allergy (Unknown, Verified 10/23/23 14:03) UNKNOWN Medical History: Abnormal uterine bleeding (AUB), Anemia due to blood loss, Arthritis of right knee, Breast cancer, Cervical radiculopathy, Chronic back pain, Chronic migraine, Depression, Enlarged uterus, Expressive aphasia, Hyperlipemia- Does not tolerate fish oil, Insomnia, Lumbar radiculopathy, Palpitation, Stroke, TIA (transient ischemic attack) (~2011), Tobacco abuse. Surgical History: H/O arthroscopic knee surgery- LEFT KNEE, H/O sinus surgery, H/O tubal ligation, History of hysterectomy Social History: Smoking and tobacco/nicotine status: current every day tobacco/nicotine user cigarettes Packs smoked per day: 1 Years cigarettes smoked: 37, Second hand smoke exposure: Yes, Alcohol intake: never, Substance/Drug Use: never, Female Reproductive History, Spontaneous abortions: No, Dietary Habits- Caffeine: Yes Caffeine intake frequency: carbonated beverages and tea Vital Signs: Performed on 11/06/2023 3:49 PM BMI - 32.35 kg/m2 (high), Height - 65 in, Weight - 194.4 lbs, Temperature - 97.2 f, Pulse - 98 /min, Respiration - 16 /min, O2 Sat - 98 %, Pain - 0, Fatigue - 0 and BP - 99/ 71 mm(hg). Physical Exam: Alert in NAD. Alopecia from chemo. Poor dentition No adenopathy. Left port, right breast and right axillary incisions well closed. Right arm has full FROM. No arm edema. Right breast unremarkable. Performance Status: ECOG 0 Imaging: See HPI Impression: St II (T2 N0 M0) Gr 2 ??? 3 IDC of superior right breast. Appropriate for adjuvant breast radiation to improve local control over surgery alone. As she lives more than an hour away, I do favor 1 week of treatment to 26 Gy in 5 fractions over one week treating a conservative tangent volume of the entire right breast. This has been found to be effective with good intermediate accountant outcomes on the FAST FORWARD trial published initially in Lancet. Discussed in detail with patient and . Also reviewed critical need for smoking cessation. Signed by: 11/07/2023 11:01:50 AM <<Signature on File>> Time spent with patient: CPT Code: CPT Code:
[2023-11-13 13:51] LABS: Basophils # 0.1 10^3/uL (0.0-0.1); Basophils % 1.4 %; Eosinophils # 0.3 10^3/uL (0.0-0.8); Eosinophils % 4.2 %; Hematocrit 42.9 % (36-47); Lymphocytes # 2.2 10^3/uL (0.8-4.8); Lymphocytes % 34.6 %; Mean Corpuscular HGB Conc 32.9 g/dL (30-55); Mean Corpuscular Hemoglobin 31.1 pg (27-33); Mean Corpuscular Volume 94.5 fl (85-98); Mean Platelet Volume 10.1 fL (7.4-10.4); Monocytes # 0.4 10^3/uL (0.2-0.9); Neutrophils # 3.29 10^3/uL (1.8-7.7); Neutrophils % 52.6 %; Nucleated Red Blood Cells % 0 %; Platelet Count 182 10^3/cmm (157-399); Red Blood Count 4.54 10^6/uL (3.85-5.65); Red Cell Distribution Width 13.2 % (12.1-15.1); White Blood Count 6.25 10^3/uL (3.29-11.43)
[2023-11-13 14:13] LABS: Alanine Aminotransferase 8 U/L (0-33); Albumin Level 3.9 g/dL (3.5-5.2); Alkaline Phosphatase 78 U/L (35-105); Anion Gap 13.8 (5-19); Aspartate Amino Transferase 12 U/L (0-32); Blood Urea Nitrogen 8 mg/dL (6-20); Calcium 9.2 mg/dL (8.5-10.5); Carbon Dioxide 25 mmol/L (22-29); Chloride 104 mmol/L (98-107); Glomerular Filtration Rate 106.3 mL/min (90-130); Glucose 103 mg/dL (65-115); Osmolality Calculated 287 mOsm/kg (285-295); Potassium 3.8 mmol/L (3.5-5.1); Sodium 139 mmol/L (136-145); Total Bilirubin 0.2 mg/dL (0.15-1.2); Total Protein 6.9 g/dL (6.6-8.7)
[2023-11-13] MEDS: diphenhydrAMINE 25 mg Capsule PO (15:57)
[2023-11-13] MEDS: acetaminophen 325 mg Tablet 650 MG PO (15:57)
[2023-11-13] MEDS: pertuzumab-trastuzumab-hy-zzxf (60 mg-60mg-2000 units/mL) 10mL 600 MG SUBCUT (16:14)
== END 2023-11-13 23:59 | disposition home or self-care (01) ==
PROVIDERS: Nurse Practitioner Family; PCP Family Medicine; Visit Provider Internal Medicine Medical Oncology
DX: C50.811 Malignant neoplasm of overlapping sites of right female breast; Z17.1 Estrogen receptor negative status [ER-]; F17.210 Nicotine dependence, cigarettes, uncomplicated; Z79.899 Other long term (current) drug therapy; Z53.9 Procedure and treatment not carried out, unspecified reason; Z51.0 Encounter for antineoplastic radiation therapy; Z51.12 Encounter for antineoplastic immunotherapy
CPT/HCPCS: 36415; 77290; 77295; 77300; 77334; 77412; 80053; 85025; 96401; 99205; 99214; J9316

== ENCOUNTER 2023-11-20 14:58 | Oncology outpatient (recurring) (ONCR) | payer MEDICARE, MEDICAID, SELFPAY ==
--- NOTE | 2023-11-20 08:30 | ONCRAD TMN_ITS ---
Radiation Oncology Weekly Treatment Management Patient: Gem Valentine MR#: [id number] : 1975> Attending Physician: Dr. Estephania Kulkarni Date of Service: 11/19/2023 Fractions: 4 out of 5 Referring Physician(s) : Diagnosis: C50.811 - Malignant neoplasm of overlapping sites of right female breast, Diagnosed 03/14/2023 (Active) Radiotherapy to date: Course: RT Breast 2023, Treatment Site: RT Breast, Ref. ID: [id number], Energy: 15X/6X, Dose/Fx (cGy): 520, #Fx: 4 / 5, Dose Correction (cGy): 0, Total Dose Delivered (cGy): 2,080, Start Date: 11/13/2023, Elapsed Days: 6 Reason for visit: The patient is being seen today as part of their regularly scheduled weekly on treatment visits to assess for acute toxicities from radiotherapy. Review of Systems: Patient has had some issues with thrush in the inframammary folds. She has been using nystatin cream on this area. Her skin is just mildly erythematous and has been since the first treatment. Vital Signs: Performed on 11/19/2023 3:13 PM BMI - 32.417 kg/m2 (high), Height - 65 in, Weight - 194.8 lbs, Temperature - 98.3 f, Pulse - 96 /min, Respiration - 18 /min, O2 Sat - 100 %, Pain - 3, Fatigue - 4 and BP - 114/ 82 mm(hg). Physical Exam: On examination she obviously has yeast overgrowth in the inframammary folds. I have asked her not to put the nystatin cream on before treatment tomorrow. She has just a mild erythema to the entire breast. Imaging: Radiation therapy imaging related to accurate target localization (i.e. KV, MV and CBCT) was reviewed. Appropriate changes, if any, were made to ensure treatment accuracy. Plan: Will continue with her treatments as planned. She will be finished with her treatments tomorrow. Signed by: Dr. Estephania Kulkarni 11/20/2023 8:29:34 AM
--- NOTE | 2023-11-22 09:02 | N.ONRD TS_ITS ---
Radiation Oncology Treatment Summary Patient: Serge>Ysabel MR#: [id number] : 1975> Age: 47> Sex: Female Dictated by: Dr. Estephania Kulkarni Date of Service: 11/20/2023 Referring Physician(s) : Diagnosis: C50.811 - Malignant neoplasm of overlapping sites of right female breast, Diagnosed 03/14/2023 (Active) Radiotherapy to Date: Course: RT Breast 2023, Treatment Site: RT Breast, Ref. ID: [id number], Energy: 15X/6X, Dose/Fx (cGy): 520, #Fx: 5 / 5, Dose Correction (cGy): 0, Total Dose Delivered (cGy): 2,600, Start Date: 11/13/2023, End Date: 11/20/2023, Elapsed Days: 7 Clinical Summary: The patient tolerated RT well. She developed some erythema after the first treatment. The skin changes over the intervening days were appropriate for the dose of radiation she received. She will continue to use her cream and cortisone cream on the skin and we will see her back in a month. Plan: End of treatment today. Continue on the above medication until the skin reaction resolves. Follow up in one month. Signed by: Dr. Estephania Kulkarni>11/22/2023 9:01:09 AM <<Signature on File>>
== END 2023-11-30 23:59 | disposition home or self-care (01) ==
PROVIDERS: PCP Family Medicine; Visit Provider Radiology Radiation Oncology
DX: Z53.9 Procedure and treatment not carried out, unspecified reason (principal); C50.811 Malignant neoplasm of overlapping sites of right female breast; Z51.11 Encounter for antineoplastic chemotherapy; Z17.0 Estrogen receptor positive status [ER+]; F17.210 Nicotine dependence, cigarettes, uncomplicated; Z79.899 Other long term (current) drug therapy
CPT/HCPCS: 77336; 77387; 77412; 99024

== ENCOUNTER 2023-11-30 14:09 | Outpatient (CLI) | payer MEDICARE, SELFPAY ==
--- NOTE | 2023-11-30 14:30 | USCV_ITS ---
Gem Valentine Age: 47 Gender: F : 1975 Exam Date: 11/30/2023 14:34 Ordering Phys: Brenda Durham APRN Technologist: CHASTITY Exam Location: [facility] [place] Indication: HI RISK MEDS BP: 117 / 58 HR: 87 Rhythm: Sinus Technical Quality: Suboptimal MEASUREMENTS (Male / Female) Normal Values 2D ECHO LV Diastolic Diameter PLAX 4.2 cm 4.2 - 5.9 / 3.9 - 5.3 cm IVS Diastolic Thickness 1.4 cm 0.6 - 1.0 / 0.6 - 0.9 cm IVS Systolic Thickness 1.5 cm LVPW Diastolic Thickness 1.8 cm 0.6 - 1.0 / 0.6 - 0.9 cm LVPW Systolic Thickness 2.3 cm LVOT Diameter 2.0 cm LV Ejection Fraction 2D Teich 61.3 % LV Ejection Fraction MOD 2C 58.2 % LV Ejection Fraction 2C AL 60.8 % LA Diameter 2.7 cm RA Systolic Volume 4C AL 12.0 ml RA Systolic Volume 4C MOD 10.9 ml LA Sys Volume AL 16.3 cm cubed LA Sys Volume Index AL 7.9 cm cubed/m squared Aorta at Sinotubular Diameter 2.4 cm IVC Diameter 1.3 cm M-MODE LA Ao Ratio MM 1.0 AV Cusp Separation MM 1.5 cm FINDINGS Left Ventricle This is a two-dimensional study only. Left ventricular size and function are normal. Ejection fraction is about 65%. No diastolic function evaluation. No M-mode or Doppler examination. Right Ventricle Normal right ventricular size and systolic function. Right Atrium The right atrium is normal in size. Left Atrium The left atrium is normal in size. Mitral Valve Structurally normal mitral valve. Aortic Valve Structurally normal trileaflet aortic valve. Tricuspid Valve Structurally normal tricuspid valve. Pulmonic Valve Pulmonic valve not well visualized. Pericardium Normal pericardium without effusion. Aorta Normal ascending aorta dimension. IVC The inferior vena cava appears normal. CONCLUSIONS This is a two-dimensional study only. Left ventricular size and function are normal. Ejection fraction is about 65%. No diastolic function evaluation. No M-mode or Doppler examination. No change from the previous study done in August of this year. Dr. Wali Cabrales MD (Electronically Signed) Final Date: 30 Nov 2023 18:09 S
== END 2023-11-30 14:10 | disposition home or self-care (01) ==
LOC: RAD 14:09
PROVIDERS: PCP Family Medicine; Visit Provider Nurse Practitioner Family
DX: Z79.899 Other long term (current) drug therapy (principal)
CPT/HCPCS: 93308

== ENCOUNTER 2023-12-25 09:30 | Oncology outpatient (recurring) (ONCR) | payer MEDICARE, MEDICAID, SELFPAY ==
--- NOTE | 2023-12-04 13:06 | ONCRAD EPV_ITS ---
Radiation Oncology Established Patient Visit Patient: Serge Rabago [id number] : 1975> Age: 47> Sex: Female> Dictated by: Dr. Estephania Kulkarni Date of Service: 12/04/2023 Referring Physician(s) : Diagnosis: C50.811 - Malignant neoplasm of overlapping sites of right female breast, Diagnosed 03/14/2023 (Active) Radiotherapy to Date: Course: RT Breast 2023, Treatment Site: RT Breast, Ref. ID: [email or web address], Energy: 15X/6X, Dose/Fx (cGy): 520, #Fx: 5 / 5, Dose Correction (cGy): 0, Total Dose Delivered (cGy): 2,600, Start Date: 11/13/2023, End Date: 11/20/2023, Elapsed Days: 7 Current History: Current Medications: Allergies: Current Complaints / Review of Systems: . Vital Signs: Performed on 12/04/2023 12:44 PM BMI - 32.683 kg/m2 (high), Height - 65 in, Weight - 196.4 lbs, Temperature - 97.2 f, Pulse - 107 /min (high), Respiration - 18 /min, O2 Sat - 94 % (low), Pain - 0, Fatigue - 6 and BP - 121/ 79 mm(hg). Physical Exam: General: Alert and oriented x 3. No acute distress. Breast exam: Under the right breast she has developed more hyperpigmentation and there is 1 small dry area of dry desquamation. She also has erythema across the area as well as white pustules towards the medial portion of the inframammary fold. The axillary area is dry and hyperpigmented. The left breast has some mild erythema with a few pustules. Performance Status: 90 Lab: None pending. Pathology: Primary, c50.811 - malignant neoplasm of overlapping sites of right female breast, Diagnosed 03/14/2023 (active) . Imaging: See HPI Impression: Right-sided breast cancer now 2 weeks from completion of treatment Plan: I reviewed at this point that she has been putting Hibiclens on the area as well as nystatin cream. We double checked her allergies and she does not recall being allergic to sulfa. I have sent Silvadene for her to use and told her use cortisone in the areas where that is pruritic. I instructed her on how to use the Silvadene twice a day. I have asked her to stop the nystatin cream and the Hibiclens at this point. She will be getting her's Herceptin today. Which she will get through May Signed by: 12/04/2023 1:05:16 PM <<Signature on File>> Time spent with patient: CPT Code: CPT Code:
[2023-12-04 13:09] LABS: Basophils # 0.1 10^3/uL (0.0-0.1); Basophils % 0.9 %; Eosinophils # 0.3 10^3/uL (0.0-0.8); Eosinophils % 2.2 %; Hematocrit 42.9 % (36-47); Lymphocytes # 1.8 10^3/uL (0.8-4.8); Lymphocytes % 15.3 %; Mean Corpuscular Hemoglobin 31.1 pg (27-33); Mean Corpuscular Volume 91.5 fl (85-98); Mean Platelet Volume 10.3 fL (7.4-10.4); Monocytes # 0.7 10^3/uL (0.2-0.9); Monocytes % 5.9 %; Neutrophils # 8.77 10^3/uL (1.8-7.7); Neutrophils % 75.5 %; Nucleated Red Blood Cells % 0 %; Platelet Count 182 10^3/cmm (157-399); Red Blood Count 4.69 10^6/uL (3.85-5.65); Red Cell Distribution Width 13.4 % (12.1-15.1)
[2023-12-04 13:31] LABS: Alanine Aminotransferase 15 U/L (0-33); Albumin Level 4.2 g/dL (3.5-5.2); Alkaline Phosphatase 92 U/L (35-105); Anion Gap 15.9 (5-19); Aspartate Amino Transferase 15 U/L (0-32); Blood Urea Nitrogen 11 mg/dL (6-20); Calcium 9.2 mg/dL (8.5-10.5); Carbon Dioxide 22 mmol/L (22-29); Chloride 104 mmol/L (98-107); Glomerular Filtration Rate 88.9 mL/min (90-130); Glucose 105 mg/dL (65-115); Osmolality Calculated 286 mOsm/kg (285-295); Potassium 3.9 mmol/L (3.5-5.1); Sodium 138 mmol/L (136-145); Total Bilirubin 0.3 mg/dL (0.15-1.2); Total Protein 7.2 g/dL (6.6-8.7)
[2023-12-04] MEDS: diphenhydrAMINE 25 mg Capsule PO (15:45)
[2023-12-04] MEDS: acetaminophen 325 mg Tablet 650 MG PO (15:45)
[2023-12-04 15:48] LABS: Follicle Stimulating Hormone 53.2 mIU/mL; Luteinizing Hormone 28.8 mIU/mL (0.5-41.7)
[2023-12-04] MEDS: pertuzumab-trastuzumab-hy-zzxf (60 mg-60mg-2000 units/mL) 10mL 600 MG SUBCUT (16:13)
[2023-12-04 16:37] VITALS: BP 125/85; PULSE 86; RESP 18; TEMP 36.4; O2SAT 97
--- NOTE | 2023-12-20 16:00 | USCV_ITS ---
Gem Valentine Age: 48 Gender: F : 1975 Exam Date: 12/20/2023 10:32 Ordering Phys: Jillian Taylor MD Technologist: USR [place] [facility] [place]: Pain HISTORY: Upper extremity pain. PROCEDURES: Venous duplex imaging was performed in only the right upper extremity. The following venous structures were evaluated: internal jugular vein, subclavian vein, axillary vein, and brachial veins. In addition, the basilic vein, cephalic vein, radial vein, and ulnar vein. FINDINGS: No evidence of deep vein thrombosis or superficial thrombophlebitis in the right upper extremity. CONCLUSIONS No evidence of thrombus of the right upper extremity veins. Sukh Baker MD (Electronically Signed) Final Date: 20 December 2023 15:19 S
[2023-12-25 10:20] LABS: Basophils # 0.1 10^3/uL (0.0-0.1); Basophils % 1.1 %; Eosinophils # 0.3 10^3/uL (0.0-0.8); Eosinophils % 3.8 %; Hematocrit 43.1 % (36-47); Lymphocytes # 2.4 10^3/uL (0.8-4.8); Lymphocytes % 29.2 %; Mean Corpuscular HGB Conc 32.9 g/dL (30-55); Mean Corpuscular Hemoglobin 30.3 pg (27-33); Mean Corpuscular Volume 91.9 fl (85-98); Mean Platelet Volume 10.6 fL (7.4-10.4); Monocytes # 0.6 10^3/uL (0.2-0.9); Monocytes % 6.9 %; Neutrophils # 4.78 10^3/uL (1.8-7.7); Neutrophils % 58.8 %; Nucleated Red Blood Cells % 0 %; Platelet Count 184 10^3/cmm (157-399); Red Blood Count 4.69 10^6/uL (3.85-5.65); Red Cell Distribution Width 13.9 % (12.1-15.1); White Blood Count 8.14 10^3/uL (3.29-11.43)
[2023-12-25 10:48] LABS: Alkaline Phosphatase 98 U/L (35-105); Blood Urea Nitrogen 16 mg/dL (6-20); Calcium 9.5 mg/dL (8.5-10.5); Carbon Dioxide 22 mmol/L (22-29); Chloride 105 mmol/L (98-107); Creatinine Clr Calc Pharmacy 104.4134; Globulin 2.7 g/dL (1.3-4.6); Glomerular Filtration Rate 88.6 mL/min (90-130); Glucose 118 mg/dL (65-115); Osmolality Calculated 288 mOsm/kg (285-295); Sodium 138 mmol/L (136-145); Total Bilirubin 0.2 mg/dL (0.15-1.2); Total Protein 6.7 g/dL (6.6-8.7)
[2023-12-25 10:52] LABS: Anion Gap 14.7 (5-19); Aspartate Amino Transferase 15 U/L (0-32); Potassium 3.7 mmol/L (3.5-5.1)
[2023-12-25 10:53] LABS: Alanine Aminotransferase 16 U/L (0-33)
[2023-12-25] MEDS: diphenhydrAMINE 25 mg Capsule PO (11:38)
[2023-12-25] MEDS: acetaminophen 325 mg Tablet 650 MG PO (11:38)
[2023-12-25] MEDS: pertuzumab-trastuzumab-hy-zzxf (60 mg-60mg-2000 units/mL) 10mL 600 MG SUBCUT (12:03)
== END 2023-12-25 23:59 | disposition home or self-care (01) ==
PROVIDERS: Nurse Practitioner Family; PCP Family Medicine; Visit Provider Radiology Radiation Oncology
DX: Z51.12 Encounter for antineoplastic immunotherapy (principal); C50.811 Malignant neoplasm of overlapping sites of right female breast; Z53.9 Procedure and treatment not carried out, unspecified reason; Z79.899 Other long term (current) drug therapy
CPT/HCPCS: 36415; 80053; 82670; 83001; 83002; 85025; 93971; 96401; 96402; 96409; 99024; 99214; J9316

== ENCOUNTER 2024-01-15 13:06 | Oncology outpatient (recurring) (ONCR) | payer MEDICARE, MEDICAID, SELFPAY ==
[2024-01-15 13:20] LABS: Basophils # 0.1 10^3/uL (0.0-0.1); Basophils % 1.5 %; Eosinophils # 0.2 10^3/uL (0.0-0.8); Eosinophils % 3.6 %; Hematocrit 45.9 % (36-47); Lymphocytes # 2.2 10^3/uL (0.8-4.8); Lymphocytes % 32.6 %; Mean Corpuscular HGB Conc 33.6 g/dL (30-55); Mean Corpuscular Volume 89.5 fl (85-98); Mean Platelet Volume 10.2 fL (7.4-10.4); Monocytes # 0.5 10^3/uL (0.2-0.9); Monocytes % 7.4 %; Neutrophils # 3.64 10^3/uL (1.8-7.7); Neutrophils % 54.6 %; Nucleated Red Blood Cells % 0 %; Platelet Count 198 10^3/cmm (157-399); Red Blood Count 5.13 10^6/uL (3.85-5.65); Red Cell Distribution Width 14.4 % (12.1-15.1); White Blood Count 6.66 10^3/uL (3.29-11.43)
[2024-01-15 13:36] LABS: Alanine Aminotransferase 13 U/L (0-33); Albumin Level 4.1 g/dL (3.5-5.2); Alkaline Phosphatase 93 U/L (35-105); Aspartate Amino Transferase 14 U/L (0-32); Blood Urea Nitrogen 12 mg/dL (6-20); Calcium 9.7 mg/dL (8.5-10.5); Carbon Dioxide 20 mmol/L (22-29); Chloride 102 mmol/L (98-107); Glomerular Filtration Rate 66.3 mL/min (90-130); Glucose 110 mg/dL (65-115); Osmolality Calculated 286 mOsm/kg (285-295); Sodium 138 mmol/L (136-145); Total Bilirubin 0.3 mg/dL (0.15-1.2); Total Protein 7.1 g/dL (6.6-8.7)
[2024-01-15] MEDS: ibuprofen 800 mg tablet PO (15:50)
[2024-01-15] MEDS: acetaminophen 325 mg Tablet 650 MG PO (15:51)
[2024-01-15] MEDS: diphenhydrAMINE 25 mg Capsule PO (15:51)
[2024-01-15] MEDS: pertuzumab-trastuzumab-hy-zzxf (60 mg-60mg-2000 units/mL) 10mL 600 MG SUBCUT (16:05)
== END 2024-01-30 23:59 | disposition home or self-care (01) ==
PROVIDERS: Internal Medicine Medical Oncology; PCP Family Medicine; Visit Provider Radiology Radiation Oncology
DX: Z51.12 Encounter for antineoplastic immunotherapy (principal); C50.811 Malignant neoplasm of overlapping sites of right female breast; Z79.899 Other long term (current) drug therapy; Z92.3 Personal history of irradiation; Z95.828 Presence of other vascular implants and grafts; F17.210 Nicotine dependence, cigarettes, uncomplicated; Z17.0 Estrogen receptor positive status [ER+]
CPT/HCPCS: 36415; 80053; 85025; 96401; 99214; J9316

== ENCOUNTER 2024-02-27 12:42 | Oncology outpatient (recurring) (ONCR) | payer MEDICARE, MEDICAID, SELFPAY ==
[2024-02-05 13:22] LABS: Basophils # 0.1 10^3/uL (0.0-0.1); Basophils % 1.3 %; Eosinophils # 0.3 10^3/uL (0.0-0.8); Eosinophils % 3.2 %; Hematocrit 43.8 % (36-47); Lymphocytes % 24.9 %; Mean Corpuscular Hemoglobin 30.9 pg (27-33); Mean Corpuscular Volume 90.9 fl (85-98); Mean Platelet Volume 9.9 fL (7.4-10.4); Monocytes # 0.7 10^3/uL (0.2-0.9); Monocytes % 8.6 %; Neutrophils # 4.86 10^3/uL (1.8-7.7); Neutrophils % 61.7 %; Nucleated Red Blood Cells % 0 %; Platelet Count 174 10^3/cmm (157-399); Red Blood Count 4.82 10^6/uL (3.85-5.65); Red Cell Distribution Width 15.4 % (12.1-15.1); White Blood Count 7.87 10^3/uL (3.29-11.43)
[2024-02-05 13:37] LABS: Alanine Aminotransferase 12 U/L (0-33); Albumin Level 3.8 g/dL (3.5-5.2); Alkaline Phosphatase 98 U/L (35-105); Aspartate Amino Transferase 13 U/L (0-32); Blood Urea Nitrogen 11 mg/dL (6-20); Calcium 9.4 mg/dL (8.5-10.5); Carbon Dioxide 23 mmol/L (22-29); Chloride 105 mmol/L (98-107); Globulin 2.8 g/dL (1.3-4.6); Glomerular Filtration Rate 88.6 mL/min (90-130); Glucose 86 mg/dL (65-115); Osmolality Calculated 287 mOsm/kg (285-295); Sodium 139 mmol/L (136-145); Total Bilirubin 0.2 mg/dL (0.15-1.2); Total Protein 6.6 g/dL (6.6-8.7)
[2024-02-13] MEDS: sodium chloride 0.9% 250 ML 75 ML IV (15:35)
[2024-02-13] MEDS: diphenhydrAMINE 25 mg Capsule PO (15:37)
[2024-02-13] MEDS: acetaminophen 325 mg Tablet 650 MG PO (15:37)
[2024-02-13] MEDS: SODIUM CHLORIDE 0.9% IV (16:01)
[2024-02-13] MEDS: TRASTUZUMAB DTTB IV (16:01)
[2024-02-13 16:02] VITALS: BP 97/63; PULSE 75; RESP 16; TEMP 36.6; O2SAT 95; BMI 34.0
[2024-02-13 17:36] VITALS: BP 98/68; PULSE 70; RESP 17; TEMP 36.7; O2SAT 98
--- NOTE | 2024-02-14 08:26 | ONCRAD TMN_ITS ---
Radiation Oncology Weekly Treatment Management Patient: Gem Valentine MR#: [id number] : 1975 Attending Physician: Dr. Estephania Kulkarni Date of Service: 02/13/2024 Referring Physician(s) : Diagnosis: C50.811 - Malignant neoplasm of overlapping sites of right female breast, Diagnosed 03/14/2023 (Active) Radiotherapy to date: Course: RT Breast 2023, Treatment Site: RT Breast, Ref. ID: CTVRBreast, Energy: 15X/6X, Dose/Fx (cGy): 520, #Fx: 5 / 5, Dose Correction (cGy): 0, Total Dose Delivered (cGy): 2,600, Start Date: 11/13/2023, End Date: 11/20/2023, Elapsed Days: 7 Reason for visit: The patient is being seen today at the request of medical oncology secondary to continued issues with lymphedema of the breast. Review of Systems: Her and say that the swelling and the tenderness go down in the evening but by the next day and the end of that day it is all returned. Vital Signs: Physical Exam: On exam her right breast is larger than the left. It is slightly erythematous. It is tender to palpation. There is no dominant masses. Imaging: Radiation therapy imaging related to accurate target localization (i.e. KV, MV and CBCT) was reviewed. Appropriate changes, if any, were made to ensure treatment accuracy. Plan: I reviewed with her today that she should continue to do the manual lymphatic drainage. To make sure that she moved all of the fluid to the midline. Her said that they were moving part of it that way but then part of they would move back to the middle. So I clarified that. I also asked her to wear a bra every day. She has not been wearing 1 and does not like bras. I reminded her that no matter how much she works on it in the evening by the end of the next day if it has been hanging it will collect fluid again. She verbalized understanding of this and we will see her back at her next scheduled follow-up. Signed by: Dr. Estephania Kulkarni 02/14/2024 8:25:24 AM
--- NOTE | 2024-02-27 14:57 | ONCRAD EPV_ITS ---
Radiation Oncology Established Patient Visit Patient: Serge Rabago [id number] : 1975> Age: 48> Sex: Female> Dictated by: Dr. Estephania Kulkarni Date of Service: 02/27/2024 Referring Physician(s) : Diagnosis: C50.811 - Malignant neoplasm of overlapping sites of right female breast, Diagnosed 03/14/2023 (Active) Patient returns today for early follow-up. She had gotten a support/compression bra. She says the seem like it caused an infection in her armpit. When she called yesterday she was concerned that she might need antibiotics. She says they actually had to drain an area and white pus came out. She also said her breast continues to be tender. She does not think that the massaging has helped at all but her thinks that it has. Radiotherapy to Date: Course: RT Breast 2023, Treatment Site: RT Breast, Ref. ID: CTVRBreast, Energy: 15X/6X, Dose/Fx (cGy): 520, #Fx: 5 / 5, Dose Correction (cGy): 0, Total Dose Delivered (cGy): 2,600, Start Date: 11/13/2023, End Date: 11/20/2023, Elapsed Days: 7 Current History: Current Medications: Allergies: Current Complaints / Review of Systems: . Vital Signs: Performed on 02/27/2024 1:32 PM BMI - 32.982 kg/m2 (high), Height - 65 in, Weight - 198.2 lbs, Temperature - 97.5 f, Pulse - 96 /min, Respiration - 18 /min, O2 Sat - 95 % (low), Pain - 3, Fatigue - 0 and BP - 130/ 87 mm(hg). Physical Exam: General: Alert and oriented x 3. No acute distress. HEENT: Normocephalic, atraumatic. Extraocular Movements Intact: Pupils Equal, Round, Reactive to Light Breast: The right breast actually looks more normal today. The overlying skin is smooth. It is still hyperpigmented. It does not seem to be as tender as she is able to lift her breast without any discomfort. It is nearly about the same size as the opposite breast. The area where they felt that she had an abscess that had to be drained looks to be a superficial pimple in the axillary area. The axilla is still also hyperpigmented. I am unable to appreciate any mass in the axilla today. Performance Status: 90 Lab: None pending. Pathology: Primary, c50.811 - malignant neoplasm of overlapping sites of right female breast, Diagnosed 03/14/2023 (active) . Imaging: See HPI Impression: Breast cancer with breast lymphedema. Plan: She is allergic to multiple antibiotics and she is apparently allergic to Keflex. This would be the antibiotic ointment of choice for any type of skin infection. At this point I reassured her that these appear to just be a normal finding and she can continue to care for the area with peroxide and a triple antibiotic ointment if it should drain again. I encouraged her to get a different bra. She says this bra she is wearing now seems like when she wears it causes the breast to go down with the axillary area to swell up. Her axillary area today does not appear to be swollen or puffy. We did talk about perhaps next week she should be able to buy a softer list compressed bra. I will see her back in 5 weeks during one of her follow-ups for medical oncology. I am encouraged that she has had as much change as she has with the current therapy. At this point they will continue to use antibiotic if needed in the axilla. The switch to a less compressive bra. At this point of asked her to hold off on doing any additional manual lymphatic drainage and we will see how things are in a month. Signed by: 02/27/2024 2:56:10 PM <<Signature on File>> Time spent with patient: 20 CPT Code: CPT Code:
== END 2024-03-01 23:59 | disposition home or self-care (01) ==
PROVIDERS: Nurse Practitioner Family; PCP Family Medicine; Visit Provider Radiology Radiation Oncology
DX: C50.811 Malignant neoplasm of overlapping sites of right female breast (principal); Z92.3 Personal history of irradiation; R23.8 Other skin changes; N64.59 Other signs and symptoms in breast
CPT/HCPCS: 36415; 80053; 85025; 96413; 99213; 99214; J7050; Q5112

== ENCOUNTER 2024-03-11 11:00 | Oncology outpatient (recurring) (ONCR) | payer MEDICARE, MEDICAID, SELFPAY ==
--- NOTE | 2024-03-07 12:45 | USCV_ITS ---
Gem Valentine Age: 48 Gender: F : 1975 Exam Date: 03/07/2024 13:50 Ordering Phys: Brenda Durham APRN Technologist: [place] [facility] [place] Indication: BP: 125 / 80 HR: Rhythm: Sinus Technical Quality: Technically difficult study MEASUREMENTS (Male / Female) Normal Values 2D ECHO LVOT Diameter 2.0 cm LV Ejection Fraction MOD 4C 61.3 % LV Ejection Fraction MOD 2C 52.2 % LV Ejection Fraction 2C AL 52.3 % LA Diameter 2.8 cm RA Systolic Volume 4C AL 48.5 ml RA Systolic Volume 4C MOD 46.9 ml LA Sys Volume AL 36.1 cm cubed LA Sys Volume Index AL 17.5 cm cubed/m squared Aorta at Sinotubular Diameter 2.5 cm IVC Diameter 1.8 cm M-MODE LA Ao Ratio MM 1.5 AV Cusp Separation MM 1.7 cm FINDINGS Left Ventricle Normal left ventricular size and systolic function estimated ejection fraction 60%, with no regional wall motion abnormalities. Normal left ventricular wall thickness. Right Ventricle The right ventricle is normal in size and function. Right Atrium The right atrium is normal in size. Left Atrium The left atrium is normal in size. Mitral Valve Structurally normal mitral valve without significant stenosis or prolapse. Aortic Valve Structurally normal aortic valve without significant sclerosis or stenosis. Tricuspid Valve Structurally normal tricuspid valve without significant stenosis Pulmonic Valve Structurally normal pulmonic valve without significant stenosis. Pericardium Normal pericardium without effusion. Aorta Normal ascending aorta dimension. IVC The inferior vena cava appears normal. CONCLUSIONS Normal left ventricular size and systolic function estimated ejection fraction 60%, with no regional wall motion abnormalities. Normal left ventricular wall thickness. There is no pericardial effusion. Haresh Ornelas MD (Electronically Signed) Final Date: 07 March 2024 17:42 S
[2024-03-11 11:45] LABS: Basophils # 0.2 10^3/uL (0.0-0.1); Basophils % 1.6 %; Eosinophils # 0.3 10^3/uL (0.0-0.8); Eosinophils % 3.2 %; Hematocrit 46.9 % (36-47); Lymphocytes # 3.2 10^3/uL (0.8-4.8); Lymphocytes % 32.7 %; Mean Corpuscular HGB Conc 33.3 g/dL (30-55); Mean Corpuscular Hemoglobin 31.1 pg (27-33); Mean Corpuscular Volume 93.4 fl (85-98); Mean Platelet Volume 10.5 fL (7.4-10.4); Monocytes # 0.7 10^3/uL (0.2-0.9); Monocytes % 6.8 %; Neutrophils # 5.43 10^3/uL (1.8-7.7); Neutrophils % 55.4 %; Nucleated Red Blood Cells % 0 %; Platelet Count 199 10^3/cmm (157-399); Red Blood Count 5.02 10^6/uL (3.85-5.65); Red Cell Distribution Width 14.5 % (12.1-15.1); White Blood Count 9.81 10^3/uL (3.29-11.43)
[2024-03-11 12:03] LABS: Alanine Aminotransferase 10 U/L (0-33); Albumin Level 4.1 g/dL (3.5-5.2); Alkaline Phosphatase 84 U/L (35-105); Aspartate Amino Transferase 14 U/L (0-32); Blood Urea Nitrogen 11 mg/dL (6-20); Carbon Dioxide 20 mmol/L (22-29); Chloride 102 mmol/L (98-107); Globulin 2.7 g/dL (1.3-4.6); Glomerular Filtration Rate 88.6 mL/min (90-130); Glucose 87 mg/dL (65-115); Osmolality Calculated 279 mOsm/kg (285-295); Sodium 135 mmol/L (136-145); Total Bilirubin 0.3 mg/dL (0.15-1.2); Total Protein 6.8 g/dL (6.6-8.7)
[2024-03-11] MEDS: diphenhydrAMINE 25 mg Capsule PO (13:37)
[2024-03-11] MEDS: acetaminophen 325 mg Tablet 650 MG PO (13:38)
[2024-03-11] MEDS: sodium chloride 0.9% 250 ML 75 ML IV (13:39)
[2024-03-11] MEDS: TRASTUZUMAB DTTB IV (14:07)
[2024-03-11] MEDS: SODIUM CHLORIDE 0.9% IV (14:07)
[2024-03-11 15:00] VITALS: BP 118/72; PULSE 80; RESP 16; TEMP 36.9; O2SAT 96
== END 2024-03-31 23:59 | disposition home or self-care (01) ==
PROVIDERS: PCP Family Medicine; Visit Provider Nurse Practitioner Family
DX: Z53.9 Procedure and treatment not carried out, unspecified reason; Z79.899 Other long term (current) drug therapy; Z51.12 Encounter for antineoplastic immunotherapy; C50.811 Malignant neoplasm of overlapping sites of right female breast
CPT/HCPCS: 80053; 85025; 93308; 96413; 99214; J7050; Q5112

== ENCOUNTER 2024-04-22 09:48 | Outpatient (RCR) | payer MEDICARE, MEDICAID, SELFPAY | END 2024-05-01 23:59 | disposition home or self-care (01) | LOC: SPT 09:48 | PROVIDERS: PCP Family Medicine; Visit Provider Radiology Radiation Oncology | DX: I89.0 Lymphedema, not elsewhere classified (principal) | CPT/HCPCS: 97140; 97161 ==

== ENCOUNTER 2024-04-22 11:14 | Oncology outpatient (recurring) (ONCR) | payer MEDICARE, MEDICAID, SELFPAY ==
[2024-04-01 13:32] LABS: Basophils # 0.1 10^3/uL (0.0-0.1); Basophils % 1.3 %; Eosinophils # 0.3 10^3/uL (0.0-0.8); Hematocrit 45.1 % (36-47); Lymphocytes # 2.4 10^3/uL (0.8-4.8); Lymphocytes % 28.4 %; Mean Corpuscular HGB Conc 34.4 g/dL (30-55); Mean Corpuscular Hemoglobin 31.1 pg (27-33); Mean Corpuscular Volume 90.6 fl (85-98); Mean Platelet Volume 10.5 fL (7.4-10.4); Monocytes # 0.7 10^3/uL (0.2-0.9); Monocytes % 7.8 %; Neutrophils # 4.96 10^3/uL (1.8-7.7); Neutrophils % 59.3 %; Nucleated Red Blood Cells % 0 %; Platelet Count 199 10^3/cmm (157-399); Red Blood Count 4.98 10^6/uL (3.85-5.65); Red Cell Distribution Width 13.7 % (12.1-15.1); White Blood Count 8.37 10^3/uL (3.29-11.43)
[2024-04-01 13:52] LABS: Alanine Aminotransferase 9 U/L (0-33); Albumin Level 4.3 g/dL (3.5-5.2); Alkaline Phosphatase 83 U/L (35-105); Anion Gap 15.2 (5-19); Aspartate Amino Transferase 13 U/L (0-32); Blood Urea Nitrogen 12 mg/dL (6-20); Calcium 9.9 mg/dL (8.5-10.5); Carbon Dioxide 24 mmol/L (22-29); Chloride 106 mmol/L (98-107); Globulin 2.5 g/dL (1.3-4.6); Glomerular Filtration Rate 88.6 mL/min (90-130); Glucose 91 mg/dL (65-115); Osmolality Calculated 291 mOsm/kg (285-295); Potassium 4.2 mmol/L (3.5-5.1); Sodium 141 mmol/L (136-145); Total Bilirubin 0.3 mg/dL (0.15-1.2); Total Protein 6.8 g/dL (6.6-8.7)
--- NOTE | 2024-04-01 14:07 | ONCRAD EPV_ITS ---
Radiation Oncology Established Patient Visit Patient: Gem Valentine [id number] : 1975> Age: 48> Sex: Female> Dictated by: Jerrod Bryant Date of Service: 04/01/2024 Referring Physician(s) : Diagnosis: C50.811 - Malignant neoplasm of overlapping sites of right female breast, Diagnosed FOLLOW-UP 04/01/2024 Breast Ca HX-She noted an asymptomatic mass in superior right breast in fall of 2022. Bx here 03/14/2023 Gr 2 IDC ER 80%, PR1%, H2N 3 + PET/CT 04/17/2023 revealed no occult met disease Bx 05/08/2023 again at 12:00 Gr 2 IDC, at 12;30 Gr 3 IDC. She underwent NACT completed 08/21/2023. Right lumpectomy and axillary LN sampling with port removal 10/05/2023. No residual disease seen. Now on Herceptin or equivalent therapy through 05/2024. Some post op right axillary numbness and soreness. Still smoking 1ppd and does not think that she can stop. Lives at home with her .03/14/2023 (Active) Radiotherapy to Date: Course: RT Breast 2023, Treatment Site: RT Breast, Ref. ID: CTVRBreast, Energy: 15X/6X, Dose/Fx (cGy): 520, #Fx: 5 / 5, Dose Correction (cGy): 0, Total Dose Delivered (cGy): 2,600, Start Date: 11/13/2023, End Date: 11/20/2023, Elapsed Days: 7 Current History: As above Current Medications: Per chart Allergies: Per chart Current Complaints / Review of Systems: She is now 4.1 months s/p 2600 cGy in 5 fractions completing this on 11/20/2023. She has had persistent erythema and swelling of the right breast. She comes for follow-up this date having fell last week and hitting her 's tool boxes, striking her right breast area. Vital Signs: Performed on 04/01/2024 1:04 PM BMI - 32.916 kg/m2 (high), Height - 65 in, Weight - 197.8 lbs, Temperature - 97.4 f, Pulse - 89 /min, Respiration - 16 /min, O2 Sat - 98 %, Pain - 4, Fatigue - 0 and BP - 108/ 69 mm(hg). Physical Exam: Alert and oriented and answers questions appropriately. BREAST: Left breast is pendulous with no masses. Right breast larger than the left. There is mild erythema but no warmth to the breast. No signs of bruising noted. Left axilla without adenopathy. Abdomen obese nontender extremities intact x 4. General: Alert and oriented x 3. No acute distress. HEENT: Normocephalic, atraumatic. Extraocular Movements Intact: Pupils Equal, Round, Reactive to Light and Accommodation: Sclerae anicteric. Oral cavity is clear without lesions, masses or ulcers. NECK: Supple without supraclavicular or jugular lymphadenopathy. LUNGS: Clear to auscultation bilaterally without rales, rhonchi or wheeze. HEART: Regular rate and rhythm, normal S1 and S2 without murmur, gallop or rub. MUSCULOSKELETAL: No tenderness or percussion pain over the axial skeleton, scapulae or pelvis. ABDOMEN: Soft, nontender, nondistended without masses or organomegaly. Bowell sounds are present. EXTREMITIES: No peripheral edema is identified. Limited motor and sensory examination are grossly intact and symmetric bilaterally. NEUROLOGIC: Cranial nerves II ???XII are grossly intact. Normal sensation, strength 5/5 in all extremities, normal gait, no ataxia. Performance Status: KPS 90 Lab: None pending. PATH: Primary, c50.811 - malignant neoplasm of overlapping sites of right female breast, Diagnosed 03/14/2023 (active) . Imaging: See HPI Impression: RIGHT BREAST CANCER Mild erythema of the Right Breast s/p fall last week striking right breast. PLAN: Evaluate through lymphedema clinic RTC in 3 months or sooner if need be. Signed by: 04/01/2024 2:05:39 PM <<Signature on File>> Time spent with patient: 20minutes CPT Code: CPT Code:
[2024-04-01] MEDS: sodium chloride 0.9% 250 ML 75 ML IV (14:49)
[2024-04-01] MEDS: diphenhydrAMINE 25 mg Capsule PO (14:53)
[2024-04-01] MEDS: acetaminophen 325 mg Tablet 650 MG PO (14:53)
[2024-04-01] MEDS: TRASTUZUMAB DTTB IV (15:24)
[2024-04-01] MEDS: SODIUM CHLORIDE 0.9% IV (15:24)
[2024-04-01 16:30] VITALS: BP 128/78; PULSE 84; RESP 16; TEMP 36.6; O2SAT 97
[2024-04-22 13:12] LABS: Basophils # 0.1 10^3/uL (0.0-0.1); Basophils % 1.3 %; Eosinophils # 0.3 10^3/uL (0.0-0.8); Eosinophils % 3.4 %; Hematocrit 44.5 % (36-47); Lymphocytes % 26.2 %; Mean Corpuscular HGB Conc 34.6 g/dL (30-55); Mean Corpuscular Hemoglobin 31.9 pg (27-33); Mean Corpuscular Volume 92.1 fl (85-98); Mean Platelet Volume 10.4 fL (7.4-10.4); Monocytes # 0.6 10^3/uL (0.2-0.9); Monocytes % 7.2 %; Neutrophils # 4.72 10^3/uL (1.8-7.7); Neutrophils % 61.6 %; Nucleated Red Blood Cells % 0 %; Platelet Count 178 10^3/cmm (157-399); Red Blood Count 4.83 10^6/uL (3.85-5.65); Red Cell Distribution Width 13.6 % (12.1-15.1); White Blood Count 7.66 10^3/uL (3.29-11.43)
[2024-04-22 13:28] LABS: Alanine Aminotransferase 11 U/L (0-33); Albumin Level 4.3 g/dL (3.5-5.2); Alkaline Phosphatase 79 U/L (35-105); Aspartate Amino Transferase 15 U/L (0-32); Blood Urea Nitrogen 11 mg/dL (6-20); Calcium 9.4 mg/dL (8.5-10.5); Carbon Dioxide 26 mmol/L (22-29); Chloride 104 mmol/L (98-107); Creatinine Clr Calc Pharmacy 91.3012; Globulin 2.7 g/dL (1.3-4.6); Glomerular Filtration Rate 75.9 mL/min (90-130); Glucose 92 mg/dL (65-115); Osmolality Calculated 289 mOsm/kg (285-295); Sodium 140 mmol/L (136-145); Total Bilirubin 0.4 mg/dL (0.15-1.2)
[2024-04-22] MEDS: acetaminophen 325 mg Tablet 650 MG PO (14:47)
[2024-04-22] MEDS: diphenhydrAMINE 25 mg Capsule PO (14:47)
[2024-04-22] MEDS: sodium chloride 0.9% 250 ML 75 ML IV (15:00)
[2024-04-22] MEDS: TRASTUZUMAB DTTB IV (15:13)
[2024-04-22] MEDS: SODIUM CHLORIDE 0.9% IV (15:13)
[2024-04-22 16:03] VITALS: BP 125/76; PULSE 75; RESP 17; TEMP 36.7; O2SAT 98
== END 2024-05-01 23:59 | disposition home or self-care (01) ==
PROVIDERS: PCP Family Medicine; Visit Provider Nurse Practitioner Family
DX: Z53.9 Procedure and treatment not carried out, unspecified reason; Z51.12 Encounter for antineoplastic immunotherapy; C50.811 Malignant neoplasm of overlapping sites of right female breast; Z79.899 Other long term (current) drug therapy
CPT/HCPCS: 80053; 85025; 96413; 99214; J7050; Q5112

== ENCOUNTER 2024-05-02 06:00 | Outpatient (RCR) | payer MEDICARE, SELFPAY | END 2024-05-31 23:59 | disposition home or self-care (01) | LOC: SPT 06:00 | PROVIDERS: PCP Family Medicine; Visit Provider Radiology Radiation Oncology | DX: I89.0 Lymphedema, not elsewhere classified (principal) | CPT/HCPCS: 97140 ==

== ENCOUNTER 2024-05-13 11:31 | Oncology outpatient (recurring) (ONCR) | payer MEDICARE, SELFPAY ==
[2024-05-13 11:47] VITALS: BP 122/80; PULSE 64; RESP 17; TEMP 36.2; O2SAT 97
[2024-05-13 12:00] LABS: Basophils # 0.1 10^3/uL (0.0-0.1); Basophils % 1.6 %; Eosinophils # 0.3 10^3/uL (0.0-0.8); Eosinophils % 3.4 %; Hematocrit 44.2 % (36-47); Lymphocytes # 2.4 10^3/uL (0.8-4.8); Lymphocytes % 31.5 %; Mean Corpuscular HGB Conc 33.9 g/dL (30-55); Mean Corpuscular Hemoglobin 31.3 pg (27-33); Mean Corpuscular Volume 92.1 fl (85-98); Mean Platelet Volume 10.6 fL (7.4-10.4); Monocytes # 0.5 10^3/uL (0.2-0.9); Monocytes % 6.5 %; Neutrophils # 4.31 10^3/uL (1.8-7.7); Neutrophils % 56.7 %; Nucleated Red Blood Cells % 0 %; Platelet Count 188 10^3/cmm (157-399); Red Cell Distribution Width 13.2 % (12.1-15.1); White Blood Count 7.59 10^3/uL (3.29-11.43)
[2024-05-13 12:17] LABS: Alanine Aminotransferase 11 U/L (0-33); Albumin Level 4.3 g/dL (3.5-5.2); Alkaline Phosphatase 93 U/L (35-105); Blood Urea Nitrogen 10 mg/dL (6-20); Calcium 9.5 mg/dL (8.5-10.5); Carbon Dioxide 26 mmol/L (22-29); Chloride 101 mmol/L (98-107); Creatinine Clr Calc Pharmacy 104.3442; Globulin 2.7 g/dL (1.3-4.6); Glomerular Filtration Rate 88.6 mL/min (90-130); Glucose 101 mg/dL (65-115); Osmolality Calculated 281 mOsm/kg (285-295); Sodium 136 mmol/L (136-145); Total Bilirubin 0.3 mg/dL (0.15-1.2)
[2024-05-13 12:20] LABS: Anion Gap 13.1 (5-19); Aspartate Amino Transferase 16 U/L (0-32); Potassium 4.1 mmol/L (3.5-5.1)
[2024-05-13] MEDS: diphenhydrAMINE 25 mg Capsule PO (13:18)
[2024-05-13] MEDS: acetaminophen 325 mg Tablet 650 MG PO (13:18)
[2024-05-13] MEDS: sodium chloride 0.9% 250 ML 75 ML IV (14:16)
[2024-05-13] MEDS: TRASTUZUMAB DTTB IV (14:19)
[2024-05-13] MEDS: SODIUM CHLORIDE 0.9% IV (14:19)
[2024-05-13 14:58] VITALS: BP 157/125; PULSE 88; RESP 20; TEMP 36.9; O2SAT 99
== END 2024-05-31 23:59 | disposition home or self-care (01) ==
PROVIDERS: PCP Family Medicine; Visit Provider Nurse Practitioner Family
DX: Z51.12 Encounter for antineoplastic immunotherapy (principal); C50.811 Malignant neoplasm of overlapping sites of right female breast; Z79.899 Other long term (current) drug therapy
CPT/HCPCS: 80053; 85025; 96375; 96413; 99214; J7050; Q5112

== ENCOUNTER 2024-05-13 15:05 | Emergency (ER) | payer MEDICARE, SELFPAY ==
[2024-05-13 15:07] VITALS: BP 155/112; PULSE 87; RESP 18; TEMP 37; O2SAT 100; BMI 33.5
[2024-05-13 15:13] VITALS: BP 155/112; PULSE 88; RESP 16; O2SAT 100
--- NOTE | 2024-05-13 15:24 | ECG_ITS ---
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 [id number]
--- NOTE | 2024-05-13 15:27 | ED_ITS ---
HPI - Allergic Reaction 2 General: Chief complaint: Allergic Reaction Stated complaint: Rapid resp. Chest pain Time Seen by Provider: 05/13/24 15:19 History of Present Illness: HPI narrative: 48-year-old female [facility] She is getting her last dose of Herceptin and began having intermittent chest pain and shaking. On arrival here patient is tachypneic have numbness and tingling in her face and hands. She has a history of stage II breast cancer she is completing treatment today. Additionally she has had a hemiplegic migraines in the past she denies having a migraine at this time. No known history of coronary artery disease Associated symptoms: Deny abdominal pain Related Data Home Medications Medication Instructions Recorded Confirmed prochlorperazine maleate 10 mg 10 mg PO QID PRN 06/13/23 05/13/24 tablet Previous Rx's Medication Instructions Recorded ibuprofen 800 mg tablet 800 mg PO Q8H 90 days #270 tabs 03/28/23 promethazine 25 mg tablet 25 mg PO Q6H PRN nausea and 04/02/23 vomiting #1 tab nystatin 100,000 unit/gram topical 1 applic topical BID #30 grams 11/13/23 cream ketorolac 10 mg tablet 10 mg PO Q6H PRN pain 7 days #7 11/27/23 tabs anastrozole 1 mg tablet 1 mg PO DAILY #30 tabs 12/06/23 silver sulfadiazine 1 % topical 1 applic topical BID radiation 12/17/23 cream (Silvadene) dermititis 2 weeks #50 grams cyclobenzaprine 5 mg tablet 5 mg PO DAILY PRN muscle spasm 90 02/25/24 days #90 tabs pantoprazole 40 mg tablet,delayed 40 mg PO DAILY 90 days #90 tabs 02/25/24 release (Protonix) rizatriptan 10 mg tablet See Rx Instructions PO .COMPLEX #9 02/25/24 tabs tizanidine 4 mg tablet 4 mg PO Q8H PRN muscle spasticity 02/25/24 #90 tabs verapamil 120 mg tablet,extended 120 mg PO BID 90 days #180 tabs 02/25/24 release Allergies Allergy/AdvReac Type Severity Reaction Status Date / Time terfenadine [From Seldane] Allergy Mild UNKNOWN Verified 05/13/24 11:59 amoxicillin Allergy Unknown UNKNOWN Verified 05/13/24 11:59 ceftriaxone [From Rocephin] Allergy Unknown UNKNOWN Verified 05/13/24 11:59 cephalexin Allergy Unknown UNKNOWN Verified 05/13/24 11:59 ciprofloxacin Allergy Unknown UNKNOWN Verified 05/13/24 11:59 Review of Systems 2 Const: Denies: fever(s) or chills Card: Reports: chest pain and palpitations Resp: Reports: dyspnea; Denies: productive cough, wheezing or chest congestion GI: Denies: abdominal pain : Denies: dysuria, urinary frequency or urinary urgency Musc: Denies: neck pain or back pain Skin/Breast: Denies: rash PFSH ED 2 PFSH: Medical History Breast cancer Enlarged uterus Stroke Palpitation Anemia due to blood loss Abnormal uterine bleeding (AUB) Depression Expressive aphasia Tobacco abuse Hyperlipemia Does not tolerate fish oils Arthritis of right knee Lumbar radiculopathy Cervical radiculopathy Chronic back pain TIA (transient ischemic attack) (~2011) Chronic migraine Insomnia Surgical History History of hysterectomy H/O arthroscopic knee surgery LEFT KNEE H/O tubal ligation H/O sinus surgery Family History Family/Other Uterine cancer, Onset Age: 25 Maternal Aunt Father Stroke Grandmother Heart disease Maternal and paternal Grandfather Heart disease Maternal and paternal Denies family history of Colon cancer Ovarian cancer Diabetes Clotting disorder Hypercholesteremia Breast cancer Bleeding disorder Hypertension Thyroid disease Social History Smoking and tobacco/nicotine status: current every day tobacco/nicotine user (1 PPD) cigarettes Packs smoked per day: 1 Years cigarettes smoked: 38 Second hand smoke exposure: Yes Alcohol intake: never Substance/Drug Use: never Female Reproductive History: Spontaneous abortions: No Physical Exam 2 Const: GENERAL APPEARANCE: cooperative ORIENTATION/CONSCIOUSNESS: Yes awake, Yes oriented to person, Yes oriented to place and Yes oriented to time HENMT: COMMON NORMALS: normocephalic, atraumatic and hearing grossly normal bilaterally HEAD & SCALP: normocephalic and atraumatic Resp: COMMON NORMALS: clear to auscultation bilaterally EFFORT & INSPECTION: Yes tachypneic AUSCULTATION: clear to auscultation bilaterally Cardio: COMMON NORMALS: regular rate, regular rhythm and No murmurs present (Cardio) RATE: regular rate RHYTHM: regular rhythm GI: COMMON NORMALS: Soft to palpation and No hepatosplenomegaly present A USCULTATION: Yes normoactive bowel sounds PALPATION: Yes Soft to palpation, No Tenderness to palpation present (GI), No Guarding due to palpation present (GI) and Yes No hepatosplenomegaly present Extremity: COMMON NORMALS: normal to inspection, capillary refill normal, no clubbing, cyanosis or edema, no calf tenderness and no pedal edema Neuro: SENSORIUM/ORIENTATION: Yes oriented to person, Yes oriented to place and Yes oriented to time Skin: COMMON NORMALS: no rashes or lesions noted GENERAL SKIN EXAM: no rashes or lesions noted OTHER: No rash no urticaria no flushing Course 2 Vital Signs: Vital signs: Vital Signs Temperature 98.6 F 05/13/24 15:07 Pulse Rate 75 05/13/24 17:49 Respiratory Rate 16 05/13/24 17:48 Blood Pressure 133/97 05/13/24 17:49 Pulse Oximetry 96 05/13/24 17:49 Oxygen Delivery Me thod Room Air 05/13/24 17:48 MDM - Allergic Reaction Medical Decision Making AB Elizabet shows respiratory alkalosis with hyperventilation. After a time symptoms improved all of her's symptoms have resolved including her chest discomfort numbness and tingling she still does not have a headache at this point. Discharge patient home can follow-up with oncology clinic. No evidence of allergic reaction at this time to Herceptin. Lab Data 05/13/24 15:36 05/13/24 15:36 Radiology Impressions Chest X-Ray 05/13/24 15:27 IMPRESSION: No acute cardiopulmonary disease. Laboratory Results WBC 7.73 10^3/uL (3.29-11.43) 05/13/24 15:36 RBC 4.71 10^6/uL (3.85-5.65) 05/13/24 15:36 Hgb 14.70 g/dL (11.27-16.99) 05/13/24 15:36 Hct 43.4 % (36-47) 05/13/24 15:36 MCV 92.1 fl (85-98) 05/13/24 15:36 MCH 31.2 pg (27-33) 05/13/24 15:36 MCHC 33.9 g/dL (30-55) 05/13/24 15:36 RDW 13.0 % (12.1-15.1) 05/13/24 15:36 Plt Count 180 10^3/cmm (157-399) 05/13/24 15:36 MPV 10.4 fL (7.4-10.4) 05/13/24 15:36 Neut % (Auto) 55.4 % 05/13/24 15:36 Lymph % (Auto) 34.3 % 05/13/24 15:36 Finney % (Auto) 6.3 % 05/13/24 15:36 Eos % (Auto) 2.5 % 05/13/24 15:36 Baso % (Auto) 1.2 % 05/13/24 15:36 Neut # (Auto) 4.29 10^3/uL (1.8-7.7) 05/13/24 15:36 Lymph # (Auto) 2.7 10^3/uL (0.8-4.8) 05/13/24 15:36 Finney # (Auto) 0.5 10^3/uL (0.2-0.9) 05/13/24 15:36 Eos # (Auto) 0.2 10^3/uL (0.0-0.8) 05/13/24 15:36 Baso # (Auto) 0.1 10^3/uL (0.0-0.1) 05/13/24 15:36 Nucleated RBC % (auto) 0 % 05/13/24 15:36 Nucleated RBCs # 0.0 /100WBC 05/13/24 15:36 Specimen Type Arterial 05/13/24 15:27 Sample Site Brachial, left 05/13/24 15:27 ABG pH 7.50 (7.35-7.45) H 05/13/24 15:27 ABG pCO2 32.9 mmHg (35-45) L 05/13/24 15:27 ABG pO2 57.2 mmHg (80.0-100.0) L 05/13/24 15:27 ABG PO2/FiO2 Ratio 272 05/13/24 15:27 ABG HCO3 25.5 mmol/L (22-26) 05/13/24 15:27 ABG O2 Saturation 76.5 05/13/24 15:27 ABG Base Excess 2.8 mmol/L (-2.0-2.0) H 05/13/24 15:27 Raciel Test Pos 05/13/24 15:27 A-a O2 Gradient 6.7 mmHg (5-10) 05/13/24 15:27 Hematocrit 45.1 % (37-47) 05/13/24 15:27 Hgb O2 Saturation 72.1 % (95-100) L 05/13/24 15:27 Carboxyhemoglobin 4.7 %THgb (0.4-20.1) 05/13/24 15:27 Methemoglobin 1.0 % (0.4-1.5) 05/13/24 15:27 Total Hemoglobin 14.7 g/dL (12-16) 05/13/24 15:27 Sodium 142.0 mmol/L (131-143) 05/13/24 15:27 Potassium 3.7 mmol/L (3.5-5.0) 05/13/24 15:27 Glucose 101.0 mg/dL (70-115) 05/13/24 15:27 Ionized Calcium 1.3 mmol/L (1.1-1.4) 05/13/24 15:27 O2 Delivery Device Room air 05/13/24 15:27 FiO2 21.0 % 05/13/24 15:27 Lubricating Engineer ID Cak 05/13/24 15:27 Sodium 141 mmol/L (136-145) 05/13/24 15:36 Potassium 4.2 mmol/L (3.5-5.1) 05/13/24 15:36 Chloride 106 mmol/L (98-107) 05/13/24 15:36 Carbon Dioxide 24 mmol/L (22-29) 05/13/24 15:36 Anion Gap 15.2 (5-19) 05/13/24 15:36 BUN 9 mg/dL (6-20) 05/13/24 15:36 Creatinine 0.8 mg/dL (0.5-0.9) 05/13/24 15:36 GFR Calculation 75.9 mL/min (90-130) L 05/13/24 15:36 Glucose 103 mg/dL (65-115) 05/13/24 15:36 Calculated Osmolality 291 mOsm/kg (285-295) 05/13/24 15:36 Calcium 9.5 mg/dL (8.5-10.5) 05/13/24 15:36 Total Bilirubin 0.3 mg/dL (0.15-1.2) 05/13/24 15:36 AST 13 U/L (0-32) 05/13/24 15:36 ALT 10 U/L (0-33) 05/13/24 15:36 Alkaline Phosphatase 89 U/L (35-105) 05/13/24 15:36 Troponin T Baseline < 6 ng/L (0-10) 05/13/24 15:36 Total Protein 6.3 g/dL (6.6-8.7) L 05/13/24 15:36 Albumin 4.3 g/dL (3.5-5.2) 05/13/24 15:36 Globulin 2.0 g/dL (1.3-4.6) 05/13/24 15:36 All radiology interpretation(s) finalized by discharge Discharge Plan Discharge Patient Disposition: Home Clinical Impression: Medication adverse effect, Acute hyperventilation, History of malignant neoplasm of nipple and areola of female breast Condition: Stable Prescriptions: No Action prochlorperazine maleate 10 mg tablet 10 mg PO QID PRN anastrozole 1 mg tablet 1 mg PO DAILY Qty: 30 6RF cyclobenzaprine 5 mg tablet 5 mg PO DAILY PRN (Reason: muscle spasm) 90 Days Qty: 90 3RF Rx Instructions: 1 PRN for muscle pain at bedtime pantoprazole [Protonix] 40 mg tablet,delayed release (DR/EC) 40 mg PO DAILY 90 Days Qty: 90 2RF rizatriptan 10 mg tablet See Rx Instructions PO .COMPLEX Qty: 9 2RF Rx Instructions: take 1 tab at onset of headache; if no relief may repeat 1 tab after at least 2 hrs; max = 3 tabs/24 hr PO tizanidine 4 mg tablet 4 mg PO Q8H PRN (Reason: muscle spasticity) Qty: 90 2RF Rx Instructions: do not take with cyclobenzaprine verapamil 120 mg tablet extended release 120 mg PO BID 90 Days Qty: 180 3RF ibuprofen 800 mg tablet 800 mg PO Q8H 90 Days Qty: 270 3RF ketorolac 10 mg tablet 10 mg PO Q6H PRN (Reason: pain) 7 Days Qty: 7 1RF nystatin 100,000 unit/gram cream 1 applic topical BID Qty: 30 1RF promethazine 25 mg tablet 25 mg PO Q6H PRN (Reason: nausea and vomiting) Qty: 1 0RF silver sulfadiazine [Silvadene] 1 % cream 1 applic topical BID 14 Days Qty: 50 0RF Rx Instructions: apply a 1.5 mm thickness Discharge Orders: Discharge ED (Routine); Ordered 05/13/24 Ordered By: Cezar Prado Referrals: Jillian Taylor MD [Primary Care Provider] - Patient Instructions: Opioid Safety, Pain Management Activity Restrictions/Additional Instructions: Thank you for choosing [facility] for your healthcare needs today. It is very important that you follow up as instructed or that you return to the Emergency Department should you have concerns or if your condition changes or worsens in any way. You are seen in the emergency room after reaction to medication at the cancer center. On arrival you are noted to be hyperventilating. The rest of your lab work did not show significant abnormality EKG appeared normal. You had positive the idea that this may have been related to your history of hemiplegic migraines that while this is possible that is difficult to determine definitively. At this point you can safely be discharged home. Follow-up with your primary care doctor return if you have further problems. Coding Level of Care Code ED Weigher Operator for Rocio Del Cid
--- NOTE | 2024-05-13 15:27 | XRR_ITS ---
PROCEDURE INFORMATION: Exam: XR Chest Exam date and time: 05/13/2024 3:41 PM Age: 48 years old Clinical indication: Cough and dyspnea; Additional info: Dyspnea/cough TECHNIQUE: Imaging protocol: Radiologic exam of the chest. Views: 1 view. COMPARISON: PT PET WB melanoma SUBSEQ [id number] 04/17/2023 12:59 PM FINDINGS: Lungs: No focal consolidation or other acute appearing pulmonary opacity. Calcified granulomas noted. Pleural spaces: No pleural effusion or pneumothorax noted. Heart/Mediastinum: There is no cardiomegaly. Bones/joints: No acute osseous abnormality. Soft tissues: surgical clips in the right axilla and overlying the right chest. Intraperitoneal space: There is no free intraperitoneal gas. XR/XR chest 1V portable [id number] IMPRESSION: No acute cardiopulmonary disease.
[2024-05-13 15:40] LABS: ABG PCO2 32.9 mmHg (35-45); Alveolar-Arterial Oxygen Gradi 6.7 mmHg (5-10); Arterial Blood Gas Hematocrit 45.1 % (37-47); Base Excess ABG 2.8 mmol/L (-2.0-2.0); Blood Gas Allen Test Pos; Blood Gas Operator Identificat CAK; Blood Gas Sample Site Brachial, left; Blood Gas Sample Type Arterial; Carboxyhemoglobin 4.7 %THgb (0.4-20.1); HCO3 ABG 25.5 mmol/L (22-26); HGB O2 Sat 72.1 % (95-100); Ionized Calcium Level - ABG 1.3 mmol/L (1.1-1.4); Oxygen Device ROOM AIR; Oxygen Saturation ABG 76.5; PO2 ABG 57.2 mmHg (80.0-100.0); PO2 FiO2 Ratio Arterial Blood 272; Potassium Level - ABG 3.7 mmol/L (3.5-5.0); Total Hemoglobin 14.7 g/dL (12-16)
[2024-05-13 15:41] LABS: Basophils # 0.1 10^3/uL (0.0-0.1); Basophils % 1.2 %; Eosinophils # 0.2 10^3/uL (0.0-0.8); Eosinophils % 2.5 %; Hematocrit 43.4 % (36-47); Lymphocytes # 2.7 10^3/uL (0.8-4.8); Lymphocytes % 34.3 %; Mean Corpuscular HGB Conc 33.9 g/dL (30-55); Mean Corpuscular Hemoglobin 31.2 pg (27-33); Mean Corpuscular Volume 92.1 fl (85-98); Mean Platelet Volume 10.4 fL (7.4-10.4); Monocytes # 0.5 10^3/uL (0.2-0.9); Monocytes % 6.3 %; Neutrophils # 4.29 10^3/uL (1.8-7.7); Neutrophils % 55.4 %; Nucleated Red Blood Cells % 0 %; Platelet Count 180 10^3/cmm (157-399); Red Blood Count 4.71 10^6/uL (3.85-5.65); White Blood Count 7.73 10^3/uL (3.29-11.43)
[2024-05-13 15:57] VITALS: BP 127/95; PULSE 75; RESP 21; O2SAT 90
[2024-05-13 16:02] LABS: Troponin(5th) Baseline < 6 ng/L (0-10)
[2024-05-13 16:03] LABS: Alanine Aminotransferase 10 U/L (0-33); Albumin Level 4.3 g/dL (3.5-5.2); Alkaline Phosphatase 89 U/L (35-105); Anion Gap 15.2 (5-19); Aspartate Amino Transferase 13 U/L (0-32); Blood Urea Nitrogen 9 mg/dL (6-20); Calcium 9.5 mg/dL (8.5-10.5); Carbon Dioxide 24 mmol/L (22-29); Chloride 106 mmol/L (98-107); Creatinine Clr Calc Pharmacy 90.5787; Glomerular Filtration Rate 75.9 mL/min (90-130); Glucose 103 mg/dL (65-115); Osmolality Calculated 291 mOsm/kg (285-295); Potassium 4.2 mmol/L (3.5-5.1); Sodium 141 mmol/L (136-145); Total Bilirubin 0.3 mg/dL (0.15-1.2); Total Protein 6.3 g/dL (6.6-8.7)
[2024-05-13 16:12] VITALS: BP 148/99; PULSE 77; RESP 18; O2SAT 91
--- NOTE | 2024-05-13 17:24 | ECG_ITS ---
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 Measurements Intervals [place] Rate: 67 P: 27 FL: 161 QRS: 26 QRSD: 85 T: 40 QT: 329 QTc: 348 Interpretive Statements SINUS RHYTHM POSSIBLE RIGHT VENTRICULAR CONDUCTION DELAY [RSR (QR) IN V1/V2] NONSPECIFIC T-WAVE ABNORMALITY Compared to ECG 05/13/2024 15:38:11 T-wave abnormality now present Electronically Signed On 05-19-2024 21:13:51 SOLID PLASTERER by Jessica Layne M.D. [email or web address]
[2024-05-13 17:48] VITALS: BP 133/97; PULSE 75; RESP 16; O2SAT 96
[2024-05-13 17:49] VITALS: BP 133/97; PULSE 75; O2SAT 96
== END 2024-05-13 17:50 | disposition home or self-care (01) ==
PROVIDERS: Emergency Provider Family Medicine; PCP Family Medicine
DX: T50.905A Adverse effect of unspecified drugs, medicaments and biological substances, initial encounter (principal); R06.4 Hyperventilation; Z85.3 Personal history of malignant neoplasm of breast; F17.210 Nicotine dependence, cigarettes, uncomplicated; E78.5 Hyperlipidemia, unspecified; Z86.73 Personal history of transient ischemic attack (TIA), and cerebral infarction without residual deficits; X58.XXXA Exposure to other specified factors, initial encounter
CPT/HCPCS: 36600; 71045; 80051; 80053; 82330; 82805; 84484; 85025; 93005; 99285

== ENCOUNTER 2024-06-01 06:00 | Outpatient (RCR) | payer MEDICARE, SELFPAY | END 2024-07-01 23:59 | disposition home or self-care (01) | LOC: SPT 06:00 | PROVIDERS: PCP Family Medicine; Visit Provider Radiology Radiation Oncology | DX: I89.0 Lymphedema, not elsewhere classified (principal) | CPT/HCPCS: 97140 ==

== ENCOUNTER → 2024-06-09 09:00 | Outpatient (BNVA) | payer MEDICARE, SELFPAY | PROVIDERS: PCP Family Medicine; Referring Provider Family Medicine; Visit Provider Psychiatry & Neurology Neurology | DX: G43.409 Hemiplegic migraine, not intractable, without status migrainosus (principal); I10 Essential (primary) hypertension; M54.16 Radiculopathy, lumbar region; M54.12 Radiculopathy, cervical region; G45.9 Transient cerebral ischemic attack, unspecified; G43.709 Chronic migraine without aura, not intractable, without status migrainosus; Z79.899 Other long term (current) drug therapy; E78.1 Pure hyperglyceridemia | CPT/HCPCS: 36415; 82306; 82607; 82746; 83090; 83735; 83921; 99203 ==

== ENCOUNTER 2024-06-30 13:58 | Oncology outpatient (recurring) (ONCR) | payer MEDICARE, SELFPAY ==
--- NOTE | 2024-06-19 08:30 | MR_ITS ---
WS: [id number] MRI BRAIN WITH AND WITHOUT CONTRAST HISTORY: G43.409 - Hemiplegic migraine, not intractable, without s... COMPARISON: 04/11/2021 TECHNIQUE: Multiplanar imaging performed through the brain with MultiHance 20 ml's IV. No acute infarcts are seen. Camacho-white matter differentiation is well preserved. There are a few scat tered T2 and FLAIR signal hyperintensities. No infarct. No significant atrophy or volume loss. No susceptibility artifacts or prior lacunar infarcts. Ventricles and extra-axial spaces are normal. Clivus and pituitary gland are normal. Visualized posterior fossa and brainstem are also normal. Postcontrast images are negative for masses or vascular malformations. Dural venous sinuses are normal. Paranasal sinuses: Mild mucoperiosteal thickening in the RIGHT maxillary sinus. Mucous retention cyst that was previously described has decreased in size. There is a new lobulated incompletely visualize d cystic area in the anterior RIGHT maxilla measuring 17 x 11 mm. There is mild peripheral enhancemen t on the postcontrast sequences. Mastoid air cells: Normal. Calvarium and scalp: Normal. MR/MR head wo/w con [id number] IMPRESSION: 1. No acute intracranial hemorrhage or infarct. 2. No significant volume loss or atrophy. 3. No interval change in the mild cerebellar tonsillar ectopia. No hydrocephal us. 4. New cystic mass in the anterior RIGHT maxilla measures 17 x 11 mm. This is most likely related to a a cyst related to the teeth such as a periapical cyst or dentigerous cyst.
--- NOTE | 2024-06-19 09:15 | MR_ITS ---
WS: [id number] MRA CAROTID ARTERIES HISTORY: G43.409 - Hemiplegic migraine, not intractable, without s... COMPARISON: None available. TECHNIQUE: MRA is performed with intravenous gadolinium. MIP and source images are reviewed. Right: Proximal RIGHT cervical CCA is partially obscured by breathing motion artifact. The remaining cervical common carotid artery, internal and external carotid arteries are patent without significant disease or stenosis. Left: Normal cervical carotid artery. Internal and external carotid arteries are patent. No high-grad e or significant stenosis. Subclavian Arteries: Normal. Vertebral Arteries: Normal. Codominant. MR/MR angio neck w con* [id number] IMPRESSION: 1. No significant cervical or intracranial carotid artery stenosis. 2. Normal codominant vertebral arteries.
[2024-06-19] MEDS: gadobenate dimeglumine 20 mL vial IV (09:46)
--- NOTE | 2024-06-19 10:00 | MR_ITS ---
WS: [id number] MRA ANGIOGRAPHY [place] HISTORY: G43.409 - Hemiplegic migraine, not intractable, without s... COMPARISON: None available. TECHNIQUE: 3-D MR angiography is performed of the [place] of [place]. All images are reviewed including source images. Distal vertebral and basilar arteries are intact with no significant stenosis or plaque. Posterior ce rebral arteries are normal course and caliber. Posterior communicating arteries are both patent. Intracranial portion of the internal carotid arteries are normal course and caliber. No significant a therosclerosis, stenosis or aneurysm identified. Middle and anterior cerebral arteries are both paten t with no significant disease. Anterior communicating artery is also normal. MR/MR angio head wo con [id number] IMPRESSION: Normal MRA [place] of [place].
--- NOTE | 2024-07-01 09:13 | ONCRAD EPV_ITS ---
Radiation Oncology Established Patient Visit Patient: Gem Valentine [id number] : 1975> Age: 48> Sex: Female> Dictated by: Dr. Estephania Kulkarni Date of Service: 06/30/2024 Referring Physician(s) : Diagnosis: C50.811 - Malignant neoplasm of overlapping sites of right female breast, Diagnosed 03/14/2023 (Active) Radiotherapy to Date: Course: RT Breast 2023, Treatment Site: RT Breast, Ref. ID: [email or web address] Energy: 15X/6X, Dose/Fx (cGy): 520, #Fx: 5 / 5, Dose Correction (cGy): 0, Total Dose Delivered (cGy): 2,600, Start Date: 11/13/2023, End Date: 11/20/2023, Elapsed Days: 7 Current History: Patient is doing well. Her lymphedema has been managed nicely. She is thinking about going to have her lymphedema therapy once every 3 months. She is due for an appointment up in [place] at and will have imaging done in August. Current Medications: Allergies: Current Complaints / Review of Systems: . Vital Signs: BMI - 32.284 kg/m2 (high), Height - 65 in, Weight - 194 lbs, Temperature - 96.9 f, Pulse - 72 /min, Respiration - 18 /min, O2 Sat - 97 %, Pain - 0, Fatigue - 2 and BP - 129/ 80 mm(hg). Physical Exam: General: Alert and oriented x 3. No acute distress. HEENT: Normocephalic, atraumatic. Extraocular Movements Intact: Pupils Equal, Round, Reactive to Light LUNGS: Respiratory rate is regular nonlabored. HEART: Regular rate and rhythm, EXTREMITIES: No peripheral edema is identified NEUROLOGIC: Alert and orient x 3. Gait and speech within normal limits Performance Status: 100 Lab: None pending. Pathology: Primary, c50.811 - malignant neoplasm of overlapping sites of right female breast, Diagnosed 03/14/2023 (active) . Imaging: See HPI Impression: Right sided breast cancer with resolving lymphedema Plan: At this point she is doing well. She is found a good balance of therapy that she can do at home. She will be following up with medical oncology and up at for her routine imaging. I have asked her to call if any problems should arise in the interim and be happy to see her back at any time. I do think her lymphedema is a byproduct of the short course she had along with the large size of her breast. Signed by: 07/01/2024 9:11:52 AM <<Signature on File>> Time spent with patient: CPT Code: CPT Code:
== END 2024-07-01 23:59 | disposition home or self-care (01) ==
PROVIDERS: PCP Family Medicine; Visit Provider Psychiatry & Neurology Neurology
DX: C50.811 Malignant neoplasm of overlapping sites of right female breast (principal); I89.0 Lymphedema, not elsewhere classified
CPT/HCPCS: 70544; 70548; 70553; 99213

== ENCOUNTER → 2024-07-24 10:36 | Outpatient (BNVA) | payer MEDICARE, MEDICAID, SELFPAY | PROVIDERS: PCP Family Medicine; Visit Provider Family Medicine | DX: R39.9 Unspecified symptoms and signs involving the genitourinary system (principal); K62.89 Other specified diseases of anus and rectum; M54.42 Lumbago with sciatica, left side; M54.41 Lumbago with sciatica, right side; G89.29 Other chronic pain; G43.409 Hemiplegic migraine, not intractable, without status migrainosus; M54.9 Dorsalgia, unspecified; G43.709 Chronic migraine without aura, not intractable, without status migrainosus; N30.01 Acute cystitis with hematuria; M54.16 Radiculopathy, lumbar region; C50.919 Malignant neoplasm of unspecified site of unspecified female breast | CPT/HCPCS: 81000; 87086 ==

== ENCOUNTER → 2024-07-28 14:10 | Outpatient (BNVA) | payer MEDICARE, MEDICAID, SELFPAY | PROVIDERS: PCP Family Medicine; Visit Provider Psychiatry & Neurology Neurology | DX: E78.1 Pure hyperglyceridemia (principal); G43.409 Hemiplegic migraine, not intractable, without status migrainosus | CPT/HCPCS: 36415; 84439; 84443; 84481; 99212 ==

== ENCOUNTER → 2024-08-05 14:01 | Outpatient (BNVA) | payer MEDICARE, MEDICAID, SELFPAY | PROVIDERS: PCP Family Medicine; Referring Provider Family Medicine; Visit Provider Surgery | DX: K61.0 Anal abscess (principal) | CPT/HCPCS: 99203 ==

== ENCOUNTER → 2024-08-12 08:21 | Outpatient (BNVA) | payer MEDICARE, MEDICAID, SELFPAY | PROVIDERS: PCP Family Medicine; Visit Provider Family Medicine | DX: R30.0 Dysuria (principal) | CPT/HCPCS: 81000; 87086 ==

== ENCOUNTER 2024-09-10 12:50 | Oncology outpatient (recurring) (ONCR) | payer MEDICARE, SELFPAY | END 2024-09-29 23:59 | disposition home or self-care (01) | PROVIDERS: PCP Family Medicine; Visit Provider Psychiatry & Neurology Neurology | DX: C50.811 Malignant neoplasm of overlapping sites of right female breast (principal); Z17.0 Estrogen receptor positive status [ER+]; F17.210 Nicotine dependence, cigarettes, uncomplicated; Z92.3 Personal history of irradiation; Z92.21 Personal history of antineoplastic chemotherapy; Z79.811 Long term (current) use of aromatase inhibitors | CPT/HCPCS: 99213 ==

== ENCOUNTER → 2024-09-25 13:40 | Outpatient (BNVA) | payer MEDICARE, SELFPAY | PROVIDERS: PCP Family Medicine; Visit Provider Internal Medicine | DX: R07.9 Chest pain, unspecified (principal); I10 Essential (primary) hypertension | CPT/HCPCS: 99204 ==

== ENCOUNTER 2024-09-29 06:00 | Outpatient (CLI) | payer MEDICARE, SELFPAY | END 2024-09-29 06:01 | disposition home or self-care (01) | LOC: LAB 09-30 14:01 | PROVIDERS: PCP Family Medicine; Visit Provider Psychiatry & Neurology Neurology | DX: E55.9 Vitamin D deficiency, unspecified (principal); I10 Essential (primary) hypertension | CPT/HCPCS: 80053; 82306; 85025 ==

== ENCOUNTER 2024-11-10 07:55 | Outpatient (CLI) | payer MEDICARE, SELFPAY ==
--- NOTE | 2024-11-10 | ECG_ITS ---
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 Interpretive Statements LEXISCAN SESTAMIBI STRESS TEST Procedure: At the baseline, the blood pressure was 108/55 mmHg with a heart rate of 85 bpm. The electrocardiogram showed normal sinus rhythm, normal axis with normal ST and T's. The Lexiscan was infused over a period of 20 seconds. A total of 0.4 mg of Lexiscan was infused. The stress phase was continued for a total of 5 minutes. Heart rate was at the end of stress phase was 99 bpm and a blood pressure of 112/72 mmHg. The EKG at the peak infusion revealed normal sinus rhythm with no significant ST-T wave changes. Sestamibi was injected 20 seconds after the Lexiscan infusion. Blood pressure at the end of recovery phase was 117/78 mmHg with a heart rate of 97 bpm. Conclusion: 1. Normal EKG response to Lexiscan infusion 2. No Lexiscan induced chest pain or cardiac arrhythmia. 3. Normal blood pressure and heart rate response. 4. Sestamibi/sestamibi perfusion scan pending; see separate report. Electronically Signed On 11-15-2024 12:27:22 CDT by Jerome Grajeda M.D. [email or web address]
--- NOTE | 2024-11-10 08:26 | NMCV_ITS ---
NM shannon perf SPECT r/s* [id number] Gem Valentine Age: 48 Gender: F : 1975 Exam Date: 11/10/2024 09:23 Ordering Phys: Jerome Grajeda M.D ([email or web address]) Technologist: CRAIG Romo Exam [facility]: [facility] Indications: cp STRESS TEST Please see separate stress test report in [facility] for full findings IMAGE PROTOCOL Rest/Stress 1 Lexiscan Day Radiopharmaceutical Dose (mCi) Administration Site Administered by Rest: Tc-99m 10.5 IV CRAIG Romo Sestamibi Stress:Tc-99m 32.5 IV Pari Dominguez, FLOOR FRAMER Sestamibi Rest: 10-Nov-2024 60 Discovery 630 Stress: 10-Nov-2024 30 Discovery 630 0.4mg Lexiscan. Images obtained in supine and prone position. SPECT RESULTS Technical Quality: Good Raw Data Analysis: Normal Image Corrections: No attenuation or motion correction applied Summed Stress Score: 0 Summed Rest Score: 1 Summed Difference Score: 0 PERFUSION FINDINGS SPECT images demonstrate homogeneous tracer distribution throughout the myocardium. FUNCTIONAL RESULTS (calculated via Gated SPECT) Stress Image LV EF (%): 87 Stress EDV (mL):71 TID: 1 Stress ESV (mL):9 FUNCTIONAL FINDINGS: There is normal left ventricular systolic function. IMPRESSIONS Myocardial perfusion imaging is normal. Haresh Ornelas MD (Electronically Signed) Final Date: 13 Nov 2024 21:43 S
[2024-11-10 08:32] VITALS: BMI 33.7
[2024-11-10] MEDS: ondansetron 2 mg/ML SDV 2 mL 4 MG IVP (09:56)
[2024-11-10 10:14] VITALS: BP 116/76; PULSE 98
--- NOTE | 2024-11-10 12:45 | USCV_ITS ---
Gem Valentine Age: 48 Gender: F : 1975 Exam Date: 11/10/2024 08:27 Ordering Phys: Jerome Grajeda M.D ([email or web address]) Technologist: [place] [facility] [place]: cp sob BP: 110 / 70 HR: 85 Rhythm: Sinus Technical Quality: Adequate MEASUREMENTS (Male / Female) Normal Values 2D ECHO LV Diastolic Diameter PLAX 4.4 cm 4.2 - 5.9 / 3.9 - 5.3 cm IVS Diastolic Thickness 1.1 cm 0.6 - 1.0 / 0.6 - 0.9 cm IVS Systolic Thickness 1.5 cm LVPW Diastolic Thickness 1.0 cm 0.6 - 1.0 / 0.6 - 0.9 cm LVPW Systolic Thickness 1.5 cm LVOT Diameter 2.0 cm LV Ejection Fraction 2D Teich 63.2 % LV Ejection Fraction MOD 4C 67.4 % LV Ejection Fraction MOD 2C 70.5 % LV Ejection Fraction 2C AL 71.2 % LA Diameter 3.1 cm RA Systolic Volume 4C AL 33.7 ml RA Systolic Volume 4C MOD 31.2 ml Aorta at Sinotubular Diameter 2.0 cm IVC Diameter 2.5 cm M-MODE LA Ao Ratio MM 1.2 AV Cusp Separation MM 1.6 cm DOPPLER AV Peak Velocity 134.0 cm/s LVOT Peak Velocity 99.0 cm/s AV Area Cont Eq vti 3.7 cm squared AV Area Cont Eq pk 2.4 cm squared MV Peak Velocity 116.0 cm/s MV Area PHT 4.6 cm squared Mitral E to A Ratio 0.8 TR Peak Velocity 166.0 cm/s TR Peak Gradient 11.0 mmHg TV Peak E Velocity 141.0 cm/s PV Peak Velocity 98.0 cm/s FINDINGS Left Ventricle Left ventricle is normal in size. LV systolic function is normal with EF of 60-65%. No regional wall motion abnormalities are seen. Grade 1 diastolic dysfunction. Right Ventricle Normal in size and function Right Atrium Normal in size Left Atrium Normal in size Mitral Valve Structurally normal mitral valve. Mild mitral regurgitation Aortic Valve Structurally normal aortic valve. No significant stenosis or regurgitation Tricuspid Valve Insufficient TR jet to calculate RVSP Pulmonic Valve Not well visualized Pericardium Normal Aorta Normal in size IVC Appears to be normal CONCLUSIONS LV systolic function is normal with EF of 60-65%. Grade 1 diastolic dysfunction. Mild mitral regurgitation. Jerome Grajeda MD (Electronically Signed) Final Date: 16 Nov 2024 13:41 S
== END 2024-11-10 07:56 | disposition home or self-care (01) ==
LOC: CDL 07:56
PROVIDERS: PCP Family Medicine; Visit Provider Internal Medicine
DX: R07.9 Chest pain, unspecified (principal); R06.02 Shortness of breath; R93.1 Abnormal findings on diagnostic imaging of heart and coronary circulation; I34.0 Nonrheumatic mitral (valve) insufficiency
CPT/HCPCS: 36415; 78452; 80053; 82306; 85025; 93017; 93306; 96374; A9500; J2405

== ENCOUNTER → 2024-11-25 16:43 | Outpatient (BNVA) | payer MEDICARE, SELFPAY | PROVIDERS: PCP Family Medicine; Visit Provider Psychiatry & Neurology Neurology | DX: G43.409 Hemiplegic migraine, not intractable, without status migrainosus (principal); F17.210 Nicotine dependence, cigarettes, uncomplicated; Z86.73 Personal history of transient ischemic attack (TIA), and cerebral infarction without residual deficits | CPT/HCPCS: 99212 ==

== ENCOUNTER 2024-12-08 11:56 | Oncology outpatient (recurring) (ONCR) | payer MEDICARE, SELFPAY ==
[2024-12-08 12:20] VITALS: BP 116/80; PULSE 89; RESP 16; TEMP 36.6; O2SAT 97
[2024-12-08 12:26] LABS: Basophils # 0.1 10^3/uL (0.0-0.1); Basophils % 1.7 %; Eosinophils # 0.2 10^3/uL (0.0-0.8); Eosinophils % 2.9 %; Hematocrit 45.7 % (36-47); Lymphocytes # 2.4 10^3/uL (0.8-4.8); Lymphocytes % 31.1 %; Mean Corpuscular HGB Conc 34.4 g/dL (30-55); Mean Corpuscular Hemoglobin 31.7 pg (27-33); Mean Corpuscular Volume 92.1 fl (85-98); Mean Platelet Volume 10.8 fL (7.4-10.4); Monocytes # 0.6 10^3/uL (0.2-0.9); Monocytes % 8.4 %; Neutrophils # 4.24 10^3/uL (1.8-7.7); Neutrophils % 55.6 %; Nucleated Red Blood Cells % 0 %; Platelet Count 165 10^3/cmm (157-399); Red Blood Count 4.96 10^6/uL (3.85-5.65); Red Cell Distribution Width 13.4 % (12.1-15.1); White Blood Count 7.62 10^3/uL (3.29-11.43)
[2024-12-08 12:51] LABS: Alanine Aminotransferase 11 U/L (0-33); Albumin Level 4.1 g/dL (3.5-5.2); Alkaline Phosphatase 85 U/L (35-105); Anion Gap 16.5 (5-19); Aspartate Amino Transferase 14 U/L (0-32); Blood Urea Nitrogen 11 mg/dL (6-20); CA 15-3 27.2 U/mL (0-25); Calcium 9.7 mg/dL (8.5-10.5); Carbon Dioxide 21 mmol/L (22-29); Chloride 106 mmol/L (98-107); Globulin 2.6 g/dL (1.3-4.6); Glomerular Filtration Rate 105.4 mL/min (90-130); Glucose 104 mg/dL (65-115); Lactate Dehydrogenase 152 U/L (135-214); Osmolality Calculated 290 mOsm/kg (285-295); Potassium 3.5 mmol/L (3.5-5.1); Sodium 140 mmol/L (136-145); Total Bilirubin 0.2 mg/dL (0.15-1.2); Total Protein 6.7 g/dL (6.6-8.7)
== END 2024-12-29 23:59 | disposition home or self-care (01) ==
PROVIDERS: Internal Medicine; PCP Family Medicine; Visit Provider Internal Medicine Medical Oncology
DX: C50.811 Malignant neoplasm of overlapping sites of right female breast (principal); Z17.0 Estrogen receptor positive status [ER+]; F17.210 Nicotine dependence, cigarettes, uncomplicated; Z92.3 Personal history of irradiation; Z92.21 Personal history of antineoplastic chemotherapy; Z79.811 Long term (current) use of aromatase inhibitors; Z51.12 Encounter for antineoplastic immunotherapy; Z79.899 Other long term (current) drug therapy; G43.409 Hemiplegic migraine, not intractable, without status migrainosus; I10 Essential (primary) hypertension; M54.16 Radiculopathy, lumbar region; M54.12 Radiculopathy, cervical region; G45.9 Transient cerebral ischemic attack, unspecified; G43.709 Chronic migraine without aura, not intractable, without status migrainosus
CPT/HCPCS: 36415; 80053; 83615; 85025; 86300; 99214

== ENCOUNTER 2025-01-30 06:30 | Outpatient (RCR) | payer MEDICARE, SELFPAY | END 2025-03-01 23:59 | disposition home or self-care (01) | LOC: SPT 06:30 | PROVIDERS: PCP Family Medicine; Visit Provider Internal Medicine Medical Oncology | DX: I89.0 Lymphedema, not elsewhere classified (principal) | CPT/HCPCS: 97161 ==

== ENCOUNTER 2025-03-02 05:00 | Outpatient (RCR) | payer MEDICARE, SELFPAY | END 2025-03-31 23:59 | disposition home or self-care (01) | LOC: SPT 05:00 | PROVIDERS: PCP Family Medicine; Visit Provider Internal Medicine Medical Oncology | DX: I89.0 Lymphedema, not elsewhere classified (principal) | CPT/HCPCS: 97140 ==

== ENCOUNTER 2025-03-11 12:24 | Oncology outpatient (recurring) (ONCR) | payer MEDICARE, SELFPAY ==
[2025-03-11 12:51] LABS: Hematocrit 43.9 % (36-47); Hemoglobin 15.30 g/dL (11.27-16.99); Mean Corpuscular HGB Conc 34.9 g/dL (30-55); Mean Corpuscular Hemoglobin 32.2 pg (27-33); Mean Corpuscular Volume 92.4 fl (85-98); Nucleated Red Blood Cells % 0 %; Platelet Count 164 10^3/cmm (157-399); Red Blood Count 4.75 10^6/uL (3.85-5.65); White Blood Count 10.33 10^3/uL (3.29-11.43)
[2025-03-11 13:23] LABS: Alanine Aminotransferase 12 U/L (0-33); Albumin Level 4.3 g/dL (3.5-5.2); Alkaline Phosphatase 93 U/L (35-105); Anion Gap 14.4 (5-19); Aspartate Amino Transferase 15 U/L (0-32); Blood Urea Nitrogen 6 mg/dL (6-20); CA 15-3 27.0 U/mL (0-25); Calcium 10.0 mg/dL (8.5-10.5); Carbon Dioxide 24 mmol/L (22-29); Chloride 106 mmol/L (98-107); Globulin 3.0 g/dL (1.3-4.6); Glucose 112 mg/dL (65-115); Osmolality Calculated 290 mOsm/kg (285-295); Potassium 3.4 mmol/L (3.5-5.1); Sodium 141 mmol/L (136-145); Total Protein 7.3 g/dL (6.6-8.7)
== END 2025-03-31 23:59 | disposition home or self-care (01) ==
PROVIDERS: Internal Medicine; PCP Family Medicine; Visit Provider Internal Medicine Medical Oncology
DX: C50.811 Malignant neoplasm of overlapping sites of right female breast (principal); Z17.0 Estrogen receptor positive status [ER+]; F17.210 Nicotine dependence, cigarettes, uncomplicated; D50.9 Iron deficiency anemia, unspecified; Z79.811 Long term (current) use of aromatase inhibitors; Z92.3 Personal history of irradiation; Z92.21 Personal history of antineoplastic chemotherapy
CPT/HCPCS: 36415; 80053; 85025; 86300; 99213

== ENCOUNTER 2025-04-01 05:00 | Outpatient (RCR) | payer MEDICARE, SELFPAY | END 2025-05-01 23:59 | disposition home or self-care (01) | LOC: SPT 05:00 | PROVIDERS: PCP Family Medicine; Visit Provider Internal Medicine Medical Oncology | DX: I89.0 Lymphedema, not elsewhere classified (principal) | CPT/HCPCS: 97140 ==

== ENCOUNTER 2025-05-02 06:30 | Outpatient (RCR) | payer MEDICARE, SELFPAY | END 2025-05-25 08:26 | disposition home or self-care (01) | LOC: SPT 06:30 | PROVIDERS: PCP Family Medicine; Visit Provider Internal Medicine Medical Oncology | DX: I89.0 Lymphedema, not elsewhere classified (principal) | CPT/HCPCS: 97140 ==

== ENCOUNTER 2025-06-08 12:16 | Oncology outpatient (recurring) (ONCR) | payer MEDICARE, SELFPAY ==
[2025-06-08 12:19] LABS: Hematocrit 44.4 % (36-47); Hemoglobin 15.40 g/dL (11.27-16.99); Mean Corpuscular HGB Conc 34.7 g/dL (30-55); Mean Corpuscular Hemoglobin 32.6 pg (27-33); Mean Corpuscular Volume 94.1 fl (85-98); Nucleated Red Blood Cells % 0 %; Platelet Count 183 10^3/cmm (157-399); Red Blood Count 4.72 10^6/uL (3.85-5.65); White Blood Count 8.36 10^3/uL (3.29-11.43)
[2025-06-08 12:53] LABS: Alanine Aminotransferase 12 U/L (0-33); Albumin Level 4.3 g/dL (3.5-5.2); Alkaline Phosphatase 95 U/L (35-105); Anion Gap 15.0 (5-19); Aspartate Amino Transferase 17 U/L (0-32); Blood Urea Nitrogen 10 mg/dL (6-20); CA 15-3 29.4 U/mL (0-25); Calcium 9.9 mg/dL (8.5-10.5); Carbon Dioxide 25 mmol/L (22-29); Chloride 104 mmol/L (98-107); Globulin 3.0 g/dL (1.3-4.6); Glucose 97 mg/dL (65-115); Osmolality Calculated 289 mOsm/kg (285-295); Potassium 4.0 mmol/L (3.5-5.1); Sodium 140 mmol/L (136-145); Total Protein 7.3 g/dL (6.6-8.7)
== END 2025-07-01 23:59 | disposition home or self-care (01) ==
PROVIDERS: Internal Medicine Medical Oncology; PCP Family Medicine; Visit Provider Nurse Practitioner Family
DX: C50.811 Malignant neoplasm of overlapping sites of right female breast (principal); Z17.0 Estrogen receptor positive status [ER+]; F17.210 Nicotine dependence, cigarettes, uncomplicated; D50.9 Iron deficiency anemia, unspecified; Z79.811 Long term (current) use of aromatase inhibitors; Z92.3 Personal history of irradiation; Z92.21 Personal history of antineoplastic chemotherapy
CPT/HCPCS: 36415; 80053; 85025; 86300; 99214